=== PATIENT | male | born 1935 | race Caucasian/White ===

== ENCOUNTER 2017-04-11 10:29 | Inpatient (IN) ==
--- NOTE | 2017-04-10 22:02 | Discharge Summary ---
<Therese Jones - Last Filed: 04/10/17 22:00> Date of Encounter: 04/10/17 - Discharge Diagnosis (1) Aseptic loosening of prosthetic knee Priority: Primary Status: Acute Qualifiers: Encounter type: initial encounter Qualified Code(s): T84.038A - Mechanical loosening of other internal prosthetic joint, initial encounter; Z96.659 - Presence of unspecified artificial knee joint; Z96.659 - Presence of unspecified artificial knee joint (2) Status post revision of total replacement of left knee Priority: Primary Status: Acute (3) HTN (hypertension) Priority: Secondary Status: Chronic Qualifiers: Hypertension type: essential hypertension Qualified Code(s): I10 - Essential (primary) hypertension (4) DMII (diabetes mellitus, type 2) Priority: Secondary Status: Chronic Qualifiers: Diabetes mellitus complication status: without complication Diabetes mellitus jail insulin use: unspecified director orange insulin use status Qualified Code(s): E11.9 - Type 2 diabetes mellitus without complications (5) Anticoagulated Priority: Secondary Status: Chronic Comments: Will resume Xarelto (6) Chronic pain Status: Acute Comments: Will continue Noroc 10/325 for pain control. Qualifiers: Chronic pain type: other chronic pain Qualified Code(s): G89.29 - Other chronic pain - Discharge Medications Home Medications: Lisinopril/Hydrochlorothiazide [Zestoretic 20-12.5 mg Tablet] 1 tab PO DAILY [History] Lovastatin 40 mg PO DAILY 02/22/17 [History] Meloxicam [Mobic] 15 mg PO DAILY PRN 02/22/17 [History] Metformin HCl [Glucophage] 1,000 mg PO BID 02/22/17 [History] Rivaroxaban [Xarelto] 15 mg PO DAILY 02/22/17 [History] Saxagliptin HCl [Onglyza] 5 mg PO DAILY 02/22/17 [History] Sotalol HCl [Betapace] 120 mg PO BID 02/22/17 [History] HYDROcodone/Acet 10/325 mg [[place] 10-325 mg] 1 tab PO Q6H PRN #28 tablet [Rx] HYDROcodone/Acet 10/325 mg [[place] 10-325 mg] 1 tab PO Q6HR PRN 04/11/17 [History ] Multivitamin [One Daily Essential] 1 each PO 04/11/17 [History] Psyllium Husk [Metamucil] 2 cap PO DAILY 04/11/17 [History] Allergies/Adverse Reactions: 3 Allergy/AdvReac Type Severity Reaction Status Date / Time No Known Allergies Allergy Verified 04/11/17 10:50 Primary care physician: John Maravilla, - Patient Status Disposition: Home, Self-Care Condition: Good - Discharge Instructions Follow Up With: John Maravilla DO [Primary Care Provider] - - Hospital Course Hospital course: Mr. 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 Status: Chronic Qualifiers: Encounter type: subsequent encounter Qualified Code(s): T84.038D - Mechanical loosening of other internal prosthetic joint, subsequent encounter; Z96.659 - Presence of unspecified artificial knee joint; Z96.659 - Presence of unspecified artificial knee joint (3) Status post revision of total replacement of left knee Priority: Primary Status: Acute (4) HTN (hypertension) Priority: Secondary Status: Chronic Qualifiers: Hypertension type: essential hypertension Qualified Code(s): I10 - Essential (primary) hypertension (5) DMII (diabetes mellitus, type 2) Priority: Secondary Status: Chronic Qualifiers: Diabetes mellitus complication status: without complication Diabetes mellitus director orange insulin use: unspecified director orange insulin use status Qualified Code(s): E11.9 - Type 2 diabetes mellitus without complications (6) Chronic pain Priority: Secondary Status: Chronic Qualifiers: Chronic pain type: other chronic pain Qualified Code(s): G89.29 - Other chronic pain (7) Acute blood loss anemia Priority: Primary Status: Acute Primary care physician: John Maravilla, - Patient Status Overall status at discharge: patient is progressing back to baseline - Hospital Course Hospital course: Mr. Quinn is a 81 year old male Status post revision left total knee. Hemoglobin 8.6 patient asymptomatic The patient had an uneventful postoperative course. They received antibiotics and physical therapy and were discharged in stable condition. There will follow -up in the office in 2 weeks. - Time Spent with Patient Total time spent providing and/or coordinating discharge services:
--- NOTE | 2017-04-11 10:47 | Anesthesia Evaluation PreOp ---
Date of Encounter: 04/11/17 Time of Encounter: 10:45 - Past History Planned Operation: Left Total Knee Arthroplasty Cardiac History: HTN, Hyperlipidemia Pulmonary History: Former smoker (quit 2003) CASHIER WRAPPER History: Denies Any Significant HX Other Medical History: Diabetes Type II, Other (Lymphedema) Anesthesia History: No Prior Anesthetic Complications, Past Anesthesia ( Cardiversion, Left wrist, back sx, GB,colectomy, left total knee) Alcohol Use: none Drug use: none Medications and Allergies Lisinopril/Hydrochlorothiazide [Zestoretic 20-12.5 mg Tablet] 1 tab PO DAILY [History] Lovastatin [Lovastatin] 40 mg PO DAILY 02/22/17 [History] Meloxicam [Mobic] 15 mg PO DAILY PRN 02/22/17 [History] Metformin HCl [Glucophage] 1,000 mg PO BID 02/22/17 [History] Rivaroxaban [Xarelto] 15 mg PO DAILY 02/22/17 [History] Saxagliptin HCl [Onglyza] 5 mg PO DAILY 02/22/17 [History] Sotalol HCl [Betapace] 120 mg PO BID 02/22/17 [History] HYDROcodone/Acet 10/325 mg [[place] 10-325 mg] 1 tab PO Q6H PRN #28 tablet [Rx] HYDROcodone/Acet 10/325 mg [[place] 10-325 mg] 1 tab PO Q6HR PRN 04/11/17 [History ] Multivitamin [One Daily Essential] 1 each PO 04/11/17 [History] Psyllium Husk [Metamucil] 2 cap PO DAILY 04/11/17 [History] 3 Allergy/AdvReac Type Severity Reaction Status Date / Time No Known Allergies Allergy Verified 04/11/17 10:50 - Meds/Allergy Pre-op Review Medications Reviewed: Yes Allergies Reviewed: Yes Beta Blockers on Current Med List: Yes If Beta Blockers taken, Date/Time (Last Dose taken): 07:00 04/11/17 Anesthesia Results - Labs Laboratory Tests 03/23/15 03/16/17 03/16/17 11:13 09:56 09:56 WBC Hgb Hct Plt Count INR 2.0 Sodium 139 Potassium 4.4 Chloride 103 Carbon Dioxide 24 BUN 28 H Creatinine 1.25 POC Glucose 158 H 03/16/17 09:56 WBC 8.4 Hgb 10.7 L Hct 33.9 L Plt Count 452 H INR Sodium Potassium Chloride Carbon Dioxide BUN Creatinine POC Glucose - Imaging EKG: image reviewed (SR) Anesthesia Exam O2 Sat Height 1.88 m Height 1.88 m Weight 118.841 kg Weight 118.841 kg O2 Sat by Pulse Oximetry 97 Vital Signs Temp Pulse Resp BP Pulse Ox 98.2 F 61 18 137/70 97 04/11/17 11:07 04/11/17 11:07 04/11/17 11:07 04/11/17 11:07 04/11/17 11:07 Blood glucose: 143 Height: 6'2'' Weight: 262# NPO (# of Hours): > 8 Hrs Pain Scale: 0 Pain Scale Used: Numeric (1 - 10) - HEENT Pupil (Motor): Pupils equal, EOMI Mallampati: III Teeth: Missing Denture Type: Upper: Complete Oral Opening: Greater than 3 - CASHIER WRAPPER LOC: Oriented CASHIER WRAPPER Motor: Normal RUE, Normal LUE, Normal RLE, Normal LLE, Normal Face CASHIER WRAPPER Sensory: Normal: RUE, LUE, RLE, LLE, Face - Cardiac Rhythm: Regular Murmur: None JVD: No Carotid Bruit: No - Pulmonary Breath Sounds: bilateral Clear Respiratory Effort: Symmetrical Anesthesia Assess/Plan ASA Score: 3 Modified Fisher Scale for Level of Consciousness: Cooperative, oriented, and tranquil Anesthetic Plan: General, Regional (Left Fem. Nerve Block) Autologous Blood: Yes Monitoring Plan: Standard Monitors Recovery Plan: PACU
--- NOTE | 2017-04-11 10:52 | History & Physical Report ---
Date of Encounter: 04/11/17 Time of Encounter: 10:52 24 Hour HP Update - Instructions Instructions: If the History and Physical is less than 30 days old and was completed prior to A.M. admission and or procedure and has NOT been updated on calendar day of procedure please complete this update prior to performing procedure. - Update Patient reports changes in Medical Condition: No Changes in examination, assessment, or condition: No Changes in Medication: No Preop tests/diagnostics Reviewed: Yes Surgery Remains Indicated: Yes Consent for Planned Operative Procedure(s) Verified: Yes - Pre-Operative Checklist Preoperative Checklist Indicated: No Prophylactic Antibiotic Ordered: Yes Is VTE Prophylaxis Indicated?: Yes
[2017-04-11] MEDS ORDERED: CeFAZolin Pre 2,000 MG/100 ML 2,000 MG/100 ML BAG IVPB ONE (10:59)
[2017-04-11] MEDS ORDERED: Lidocaine -MPF 1% 2 ML VIAL ID ONE (10:59)
[2017-04-11] MEDS ORDERED: Ringers Solution, Lactated 1,000 ML IVC SCH ×2 (11:00→15:23)
[2017-04-11] MEDS ORDERED: *HR* FentaNYL (PF) 100 MCG/2 ML VIAL ONE (12:07)
[2017-04-11] MEDS ORDERED: *HR* Propofol 200 MG/20 ML VIAL IVP ONE (12:07)
[2017-04-11] MEDS ORDERED: *HR* Midazolam HCl 2 MG/2 ML VIAL ONE (12:07)
[2017-04-11] MEDS ORDERED: Dexamethasone 4 MG/ML VIAL ONE (12:07)
[2017-04-11] MEDS ORDERED: Lidocaine -MPF 2% 2 ML VIAL ONE (12:07)
[2017-04-11] MEDS ORDERED: Ondansetron 4 MG/2 ML VIAL ONE (12:07)
[2017-04-11] MEDS ORDERED: Acetaminophen IV 1,000 MG/100 ML INFUS..BTL ONE (12:13)
[2017-04-11] MEDS ORDERED: Bupivacaine/Clonidine Syringe 1 EACH SYRINGE ONE (12:13)
[2017-04-11] MEDS ORDERED: ROPIVACAINE HCL/PF 0.5% 30 ML VIAL ONE (12:13)
[2017-04-11] MEDS ORDERED: Ethanol\\Acetic Acid\\Na Ace\\Ben 1,000 ML IRRIG.SOLN IR ONE (12:32)
--- NOTE | 2017-04-11 12:53 | Anesthesia Procedures ---
Date of Encounter: 04/11/17 Time of Encounter: 12:30 Procedures: Anesthesia - Nerve Block Procedure Date: 04/11/17 Time: 12:30 Allergies/Adv Reactions: nka Pre-op Diagnosis: left knee OA Surgical Procedure: left TKA Checklist: Correct Patient Identifier, Correct procedure, History checked Correct side: Left Blood Thinner: No Monitor Applied: EKG, BP, Pulse Oximetry Supplemental Oxygen via Nasal Cannula (L/min): 2 Sedation: Fentanyl (mcg): 100 Indication: Post Op Analgesia Pre-op Neuro Deficits: No Block Type: Femoral, Other (ipack - 20ml) Catheter placed: No Sterile Technique: Yes Ultrasound used: Yes Anatomy identified: Yes Visual spread of Local: Yes Neuro Stimulation: Yes (femoral only) Nerve Stimulator Range: 0.2 - 0.4 mA Blood on Needle Aspiration: No Smooth Injection of Local: Yes Pain with Injection of Local: No Prep: Chlorhexadine Needle: 22 x 50 mm Stimuplex, 21 x 100 mm Stimuplex Local: 0.25% Bupivicaine w/Clonidine 20 mcg/cc, Ropivacaine, Other (10mg decadron) Volume (cc): 50 Number of Attempts: 1 Complications: None/effective block Vitals: Vital Signs/O2 Sat/Glucose, Most Recent Temp Pulse Resp BP Pulse Ox 98.2 F 65 14 162/84 100 04/11/17 11:07 04/11/17 12:14 04/11/17 12:14 04/11/17 12:14 04/11/17 12:14 Blood Glucose* 143
[2017-04-11] MEDS ORDERED: EPHEDrine 50 MG/ML VIAL ONE (12:58)
[2017-04-11] MEDS ORDERED: *HR* Promethazine 25 MG/ML VIAL IVP PRN (13:25)
--- NOTE | 2017-04-11 13:48 | Orthopedic Operative Note ---
Date of procedure: 04/11/17 Pre-op diagnosis: Aseptic loosening left total knee Post-op diagnosis: same Procedure: Procedure: Left revision total knee Estimated blood loss: 400 Hardware: Metal and polyethylene replacement. Biomet SSK femur: 70, 18 x 120 Tibia: 79, 16 x 120 Constrained Harriet: 16 Exam Under anesthesia: Well healed incision swelling or erythema. Full flexion and extension no instability. Procedural Notes: Loosening of femoral component. Operative procedure: The patient was brought to the operating room and placed on the operating room table. After general anesthesia was administered the operative knee was examined. Findings were noted in the exam under anesthesia. The operative extremity was prepped and draped in sterile surgical fashion. The patient received IV antibiotics prior to skin incision. A standard midline incision was made centered over the patella through the old incision. The incision was made through the skin and subcutaneous tissue. A medial parapatellar tendon approach was performed. Care was taken to preserve tissue along the medial aspect of the patella. And to protect the patella tendon. The deep MCL was released off the medial tibia. The infra patella fat pad was excised. Fluid was encountered this was normal joint fluid, Cultures were obtained and gram . The knee was brought into flexion the patient had a monoblock tibia. The central post of the tibial component was cut.. The interface between the patient's femoral component and distal femur were disrupted with a osteotome and oscillating saw. Femoral component was removed removed without significant bone loss. Femoral component was looser than expected. Attention was then turned to the tibial component. The same technique was used to remove the tibial component by disrupting the interface between the patient's tibial component and the patients proximal tibia. The tibial component , was removed without significant bone loss there to medial and lateral trabecular metal lugs were removed with an osteotome.. The tibia was sized to a 79, was reamed up to a 16 x 120 Trial had good fit and fixation. The femur was sized to a 70, it was reamed up to a 18 x 120. The finishing guide was seated and the box cut was made. The trial had good fit and fixation. Both trial components were seated and the 16 constrained Harriet was seated and secured. The knee had full flexion and full extension with no instability. Patella had excellent patella tracking no abnormal wear. The trial components were removed. The knee sat for 2 minutes with a Betadine saline solution. It was irrigated out with 2 L of pulse irrigation. The components were assembled on the back table, the tibia cemented first followed by the femur. The 16 constrained liner was seated and secure. The knee was brought to full extension while the cement hardened. After the cement hardened the knee was irrigated out again. The knee was closed by the PA. The extensor mechanism was closed with a running #2 Fiberwire suture and a running #2 PDS suture. The deep tissue was irrigated and closed deep with #1 PDS suture superficially with 0 PDS suture. The skin was closed with skin nata. The patient was placed in a sterile dressing and postoperative brace. They were extubated and transferred to recovery room in stable condition. Anesthesia: JEANETH Surgeon: Amadeo Martin Dental Technician Instructor: Disha Robertson Disposition: PACU
[2017-04-11] MEDS: *HR* HYDROmorphone (PF) 1 MG/ML SYRINGE IVP PRN ×5 (14:32→16:02)
[2017-04-11 14:48] LABS: Hematocrit 28.8 % (37.5-50.1); Hemoglobin 9.3 g/dL (12.9-16.9)
--- NOTE | 2017-04-11 15:14 | Anesthesia Evaluation Post Op ---
Date of Encounter: 04/11/17 Time of Encounter: 15:12 - Vital Signs Vital Signs: Vital Signs/O2 Sat, Most Current Temp Pulse Resp BP Pulse Ox 97.2 F L 60 14 139/68 100 04/11/17 15:09 04/11/17 15:09 04/11/17 15:09 04/11/17 15:09 04/11/17 15:09 - Lungs Lungs: Clear Ascult./Percussion - Airway Airway: Non-obstructed - Cardiovascular Regular Rate - Mental Status Mental Status: Alert & Oriented, Answers Appropriately - Pain Pain Scale: 0 Pain Scale used: Numeric (1 - 10) - Nausea Vomiting Nausea Vomiting: Not Present - Hydration Hydration: Tolerates oral liquids, Has not voided - Discharge PostOp Status: Transfer Patient to floor
[2017-04-11] MEDS ORDERED: MOM Conc 10 ML UD.LIQ PO PRN (15:23)
[2017-04-11] MEDS ORDERED: Ondansetron 4 MG/2 ML VIAL IVP PRN (15:23)
[2017-04-11] MEDS ORDERED: D5% in Water 1,000 ML IVC PRN (15:23)
[2017-04-11] MEDS ORDERED: *HR* Dextrose 50 % in Water (Syg) 50 ML SYRINGE IVP PRN (15:23)
[2017-04-11] MEDS ORDERED: *HR* OxyCODONE Immed Rel 5 MG TABLET PO PRN ×2 (15:23)
[2017-04-11] MEDS ORDERED: Naloxone 0.4 MG/ML INJ IVP PRN (15:23)
[2017-04-11] MEDS ORDERED: Dextrose Gel 15 GM PO PRN ×2 (15:23)
[2017-04-11] MEDS: Insulin LISPRO 300 UNITS/3 ML VIAL SQ SCH ×2 (17:29→21:30)
[2017-04-11] MEDS ORDERED: Sennosides 8.6 MG TABLET PO PRN (21:00)
[2017-04-11] MEDS ORDERED: Temazepam 15 MG CAPSULE PO PRN (21:00)
[2017-04-11] MEDS: ceFAZolin 2,000 MG in D5% in Water 100 ML IVPB SCH (21:27)
[2017-04-11] MEDS: *HR* Metformin 500 MG TABLET PO SCH (21:27)
[2017-04-12] MEDS: ceFAZolin 2,000 MG in D5% in Water 100 ML IVPB SCH (04:49)
[2017-04-12 05:12] LABS: Hematocrit 26.5 % (37.5-50.1); Hemoglobin 8.6 g/dL (12.9-16.9)
[2017-04-12 05:28] LABS: BUN/Creatinine Ratio 22 (6-26); Blood Urea Nitrogen 25 mg/dL (8-26); Calcium 8.3 mg/dL (8.6-10.8); Carbon Dioxide 26 mEq/L (19-29); Chloride 102 mEq/L (98-109); Glucose 229 mg/dL (70-99); Osmolality,Calculated 290 (280-300); Potassium 4.4 mEq/L (3.5-4.5); Sodium 134 mEq/L (136-145); eGFR For African Americans > 60 (> 60); eGFR For Non-African Americans > 60 (> 60)
--- NOTE | 2017-04-12 06:42 | Orthopedics Progress Note ---
Date of Encounter: 04/12/17 Time of Encounter: 06:42 - Assessment and Plan (1) Obesity (BMI 30.0-34.9) Current Visit: Yes Status: Chronic (2) Aseptic loosening of prosthetic knee Current Visit: No Status: Chronic Qualifiers: Encounter type: subsequent encounter Qualified Code(s): T84.038D - Mechanical loosening of other internal prosthetic joint, subsequent encounter; Z96.659 - Presence of unspecified artificial knee joint; Z96.659 - Presence of unspecified artificial knee joint (3) Status post revision of total replacement of left knee Current Visit: No Status: Acute (4) HTN (hypertension) Current Visit: No Status: Chronic Qualifiers: Hypertension type: essential hypertension Qualified Code(s): I10 - Essential (primary) hypertension (5) DMII (diabetes mellitus, type 2) Current Visit: No Status: Chronic Qualifiers: Diabetes mellitus complication status: without complication Diabetes mellitus vermin exterminator insulin use: unspecified skilled nursing insulin use status Qualified Code(s): E11.9 - Type 2 diabetes mellitus without complications (6) Chronic pain Current Visit: No Status: Chronic Qualifiers: Chronic pain type: other chronic pain Qualified Code(s): G89.29 - Other chronic pain (7) Acute blood loss anemia Current Visit: Yes Status: Acute Subjective Interval history: Patient was seen this morning doing well without complaints. Afebrile vital signs stable. Operative extremity: Neurovascularly intact Dressing clean dry and intact Calves nontender Assessment and plan: Continue with postoperative care Hemoglobin 8.6 asymptomatic discharge today Objective Vital signs: Vital Signs Temp Pulse Resp BP Pulse Ox 04/12/17 04:02 97.6 F 64 17 114/60 98 04/11/17 23:53 97.6 F 66 17 113/59 96 04/11/17 20:55 97.6 F 65 17 120/68 95 04/11/17 19:35 97.6 F 67 14 127/68 94 04/11/17 17:51 97.6 F 67 12 116/65 95 04/11/17 16:30 97.6 F 76 18 126/67 100 04/11/17 15:09 97.2 F L 60 14 139/68 100 04/11/17 14:59 97.2 F L 63 14 139/70 100 04/11/17 14:49 61 14 132/63 100 04/11/17 14:39 62 12 145/73 100 04/11/17 14:29 97.2 F L 68 12 140/72 100 04/11/17 12:14 65 14 162/84 100 04/11/17 12:00 61 16 139/75 98 04/11/17 11:07 98.2 F 61 18 137/70 97 Intake and Output 04/11/17 04/11/17 04/12/17 15:59 23:59 07:59 Intake Total 100 / 100 250 / 250 200 / 200 Output Total 400 / 400 Balance -300 / -300 250 / 250 200 / 200 Intake: IV Fluids 100 / 100 100 / 100 100 / 100 Ancef Premix 2,000 MG/100 ML 2, 100 / 100 000 mg In 100 ml @ 200 mls/hr IVPB PREOP ONE Rx#:[id number] Ancef 2,000 MG In Dextrose 5% 100 / 100 100 / 100 100 ML @ 200 mls/hr IVPB Q8H NICOLE Rx#:[id number] Oral 150 / 150 100 / 100 Output: Estimated Blood Loss 400 / 400 Other: # Voids 1 1 Weight 118.841 kg 125 kg Blood Glucose* 163 245 Patient Weight 04/12/17 23:59 Weight 125 kg - Labs CBC & BMP: 04/12/17 04:37 04/12/17 04:37 Labs: Abnormal lab results Hgb 8.6 g/dL (12.9-16.9) L 04/12/17 04:37 Hct 26.5 % (37.5-50.1) L 04/12/17 04:37 Sodium 134 mEq/L (136-145) L 04/12/17 04:37 Glucose 229 mg/dL (70-99) H 04/12/17 04:37 POC Glucose 245 (58-89) H 04/11/17 21:28 Calcium 8.3 mg/dL (8.6-10.8) L 04/12/17 04:37 - VTE Documentation of Mechanical Device: Venous foot pump, device Consult Discharge Plan - Plan Referrals: John Maravilla DO [Primary Care Provider] -
[2017-04-12] MEDS: Insulin LISPRO 300 UNITS/3 ML VIAL SQ SCH ×4 (07:59→21:50)
[2017-04-12] MEDS: *HR* Metformin 500 MG TABLET PO SCH ×2 (08:01→21:40)
[2017-04-12] MEDS: *HR* Rivaroxaban 15 MG TABLET PO SCH (08:01)
[2017-04-12] MEDS: Lisinopril-HCTZ 20-12.5mg TABLET PO SCH (08:01)
[2017-04-12] MEDS: Psyllium 1 PACKET POWD.PACK PO SCH (08:01)
[2017-04-12] MEDS ORDERED: *HR* HYDROcodone/Acet 5/325 mg TABLET PO PRN (08:36)
[2017-04-12] MEDS: *HR* HYDROcodone/Acet 5/325 mg TABLET PO PRN ×3 (08:50→18:30)
--- NOTE | 2017-04-12 12:29 | Event Note ---
Date of Encounter: 04/12/17 Time of Encounter: 12:20 PCR - Left TKR-Revision 04/11 GRAM Stain negative POD#.1 Comorbidities: HTN, DMII, Anti-coagulation - Xarelto - to be resumed today Labs: H/H - 8.12/20 - Asymptomatic Patient seen at bedside. Pain control: adequate - chronic pain medication - [place] 10/325 TID, will plan to resume this at home, no RX needed Participating in PT. All questions and concerns addressed. Educated on use of incentive spirometer, ambulation, and hydration. Patient educated on post-operative restrictions and care. Addressed: See above D/C plan:outpatient D/C likely 04/13 - Home Will give MARY KATE hose for home use due to lymphedema
[2017-04-12] MEDS: *HR* HYDROmorphone (PF) 1 MG/ML SYRINGE IVP PRN (21:43)
[2017-04-13] MEDS: *HR* HYDROcodone/Acet 5/325 mg TABLET PO PRN ×3 (01:45→09:50)
[2017-04-13 06:22] LABS: Hematocrit 28.8 % (37.5-50.1); Hemoglobin 9.4 g/dL (12.9-16.9)
[2017-04-13 06:35] LABS: BUN/Creatinine Ratio 24 (6-26); Blood Urea Nitrogen 28 mg/dL (8-26); Carbon Dioxide 27 mEq/L (19-29); Chloride 101 mEq/L (98-109); Glucose 169 mg/dL (70-99); Osmolality,Calculated 293 (280-300); Potassium 3.9 mEq/L (3.5-4.5); Sodium 137 mEq/L (136-145); eGFR For African Americans > 60 (> 60); eGFR For Non-African Americans 59 (> 60)
--- NOTE | 2017-04-13 08:05 | Orthopedics Progress Note ---
Date of Encounter: 04/13/17 Time of Encounter: 08:05 - Assessment and Plan (1) Obesity (BMI 30.0-34.9) Current Visit: Yes Status: Chronic (2) Aseptic loosening of prosthetic knee Current Visit: No Status: Chronic Qualifiers: Encounter type: subsequent encounter Qualified Code(s): T84.038D - Mechanical loosening of other internal prosthetic joint, subsequent encounter; Z96.659 - Presence of unspecified artificial knee joint; Z96.659 - Presence of unspecified artificial knee joint (3) Status post revision of total replacement of left knee Current Visit: No Status: Acute (4) HTN (hypertension) Current Visit: No Status: Chronic Qualifiers: Hypertension type: essential hypertension Qualified Code(s): I10 - Essential (primary) hypertension (5) DMII (diabetes mellitus, type 2) Current Visit: No Status: Chronic Qualifiers: Diabetes mellitus complication status: without complication Diabetes mellitus termination clerk insulin use: unspecified assisted insulin use status Qualified Code(s): E11.9 - Type 2 diabetes mellitus without complications (6) Chronic pain Current Visit: No Status: Chronic Qualifiers: Chronic pain type: other chronic pain Qualified Code(s): G89.29 - Other chronic pain (7) Acute blood loss anemia Current Visit: Yes Status: Acute Subjective Interval history: Patient was seen this morning doing well without complaints. Afebrile vital signs stable. Operative extremity: Neurovascularly intact Dressing clean dry and intact Calves nontender Assessment and plan: Continue with postoperative care Hemoglobin9.4 discharged today Objective Vital signs: Vital Signs Temp Pulse Resp BP Pulse Ox 04/13/17 05:27 98.3 F 74 16 137/64 95 04/13/17 00:15 98.6 F 78 18 145/72 97 04/12/17 20:34 98.6 F 81 18 131/65 96 04/12/17 16:28 98.6 F 72 17 120/67 100 04/12/17 11:52 98.4 F 64 16 107/59 98 Intake and Output 04/12/17 04/13/17 04/13/17 23:59 07:59 15:59 Intake Total 240 / 240 Output Total 350 / 350 325 / 325 Balance -110 / -110 -325 / -325 Intake: Oral 240 / 240 Output: Urine 350 / 350 325 / 325 Other: Meal Dinner Percent of Meal Consumed 90% # Voids 1 Weight 125.5 kg Blood Glucose* 241 Patient Weight 04/13/17 23:59 Weight 125.5 kg - Labs CBC & BMP: 04/13/17 05:49 04/13/17 05:49 Labs: Abnormal lab results Hgb 9.4 g/dL (12.9-16.9) L 04/13/17 05:49 Hct 28.8 % (37.5-50.1) L 04/13/17 05:49 BUN 28 mg/dL (8-26) H 04/13/17 05:49 Est GFR (Non-Af Amer) 59 (> 60) L 04/13/17 05:49 Glucose 169 mg/dL (70-99) H 04/13/17 05:49 POC Glucose 241 (58-89) H 04/12/17 20:26 - VTE Documentation of Mechanical Device: Venous foot pump, device Consult Discharge Plan - Plan Referrals: John Maravilla DO [Primary Care Provider] - 05/05/17 9:00 am
[2017-04-13] MEDS: *HR* Metformin 500 MG TABLET PO SCH (08:31)
[2017-04-13] MEDS: Psyllium 1 PACKET POWD.PACK PO SCH (08:31)
[2017-04-13] MEDS: Lisinopril-HCTZ 20-12.5mg TABLET PO SCH (08:32)
[2017-04-13] MEDS: *HR* Rivaroxaban 15 MG TABLET PO SCH (08:32)
[2017-04-13] MEDS: Insulin LISPRO 300 UNITS/3 ML VIAL SQ SCH (08:32)
[2017-04-13 08:56] VITALS: BP 136/69
== END 2017-04-13 11:20 | disposition home or self-care (01) | DRG 467 ==
LOC: SAMDAY 10:29 → 3NENU 15:17
PROVIDERS: ADMIT Orthopaedic Surgery; ATTEND Orthopaedic Surgery

== ENCOUNTER 2018-02-03 14:52 | Observation (INO) ==
[2018-02-03] MEDS ORDERED: 0.9 % Sodium Chloride 500 ML IVC ONE (15:13)
[2018-02-03 15:54] LABS: Basophils # 0.1 K/mcL (0.0-0.2); Basophils % 0.6 %; Eosinophils # 0.3 K/mcL (0.0-0.6); Eosinophils % 2.9 %; Hematocrit 33.6 % (37.5-50.1); Hemoglobin 11.5 g/dL (12.9-16.9); Immature Granulocytes % 0.2 % (0-4); Lymphocytes # 1.6 K/mcL (0.6-4.6); Lymphocytes % 18.2 %; Mean Corpuscular HGB Conc 34.2 g/dL (31.6-35.5); Mean Corpuscular Hemoglobin 32.9 pg (28.0-33.3); Mean Platelet Volume 9.6 fL (9.4-12.4); Monocytes # 0.6 K/mcL (0.0-1.3); Monocytes % 6.8 %; Neutrophils # 6.4 K/mcL (1.6-8.9); Platelet Count 239 K/mcL (140-400); Red Cell Distribution Width 13.6 % (11.5-14.5); Segmented Neutrophils % 71.3 %
[2018-02-03 16:15] LABS: BUN/Creatinine Ratio 27 (6-26); Blood Urea Nitrogen 35 mg/dL (8-23); Carbon Dioxide 24 mEq/L (23-29); Chloride 106 mEq/L (98-107); Glucose 175 mg/dL (70-105); Osmolality,Calculated 286 (280-300); Potassium 4.2 mEq/L (3.5-5.1); Sodium 132 mEq/L (136-145); Troponin I < 0.03 ng/mL (< 0.04); eGFR For Non-African Americans 54 (> 60)
[2018-02-03] MEDS ORDERED: Naloxone 0.4 MG/ML INJ IVP PRN (17:09)
[2018-02-03] MEDS ORDERED: Acetaminophen 325 MG TABLET PO PRN (17:09)
[2018-02-03] MEDS ORDERED: *HR* HYDROcodone/Acet 10/325 mg TABLET PO PRN (17:10)
[2018-02-03] MEDS ORDERED: Ringers Solution, Lactated 1,000 ML IVC SCH (17:15)
--- NOTE | 2018-02-03 17:29 | Internal Med History&Physical ---
Date of Encounter: 02/03/18 Time of Encounter: 17:20 Internal Medicine - H&P: HPI Chief complaint: Dizziness Admitted From: Emergency Dept Plans for Post Hospital Care: Home History of present illness: Mr. Quinn is a 82 year old male patient with a history of atrial fibrillation, hypertension, diabetes, hyperlipidemia, who presented to the ER following a dizzy spell. Patient says that history from his bed and turned around and started walking when he suddenly felt very dizzy and almost passed out. He denies any vertigo-like sensation. He denies any palpitations or flushing prior to onset of this symptom. He denies any chest pain or shortness of breath. He reports that he had similar spell when he had an episode of rapid A. fib before. As such she was concerned about it and came to the ER. He now feels much better. He denies any diarrhea. No dysuria. No nausea or vomiting. Past Med Surg Social Fam HX - Past Medical History Attestation: Yes The following information was validated with the patient. Source: patient Medical history: atrial fibrillation, cancer, diabetes, hypertension, other Additional medical history: Colon Cancer. venous insufficiency. lymphedema Psychiatric history: no psych history - Past Surgical History Surgical History: cholecystectomy, herniorrhaphy Additional surgical history: back,l knee replacement,l wrist, colon sx, colonoscopy - Social History Smoking Status: Former smoker Smokeless Tobacco Status: No Alcohol use: none Drug use: none - Family History Mother Living Status: Hx Family Endocrine Disorder: Yes Internal Medicine - H&P: Meds Lisinopril/Hydrochlorothiazide [Zestoretic 20-12.5 mg Tablet] 1 tab PO DAILY [History] Lovastatin 40 mg PO DAILY 02/22/17 [History] Metformin HCl [Glucophage] 1,000 mg PO BID 02/22/17 [History] Rivaroxaban [Xarelto] 15 mg PO DAILY 02/22/17 [History] Saxagliptin HCl [Onglyza] 5 mg PO DAILY 02/22/17 [History] Sotalol HCl [Betapace] 120 mg PO BID 02/22/17 [History] HYDROcodone/Acet 10/325 mg [[place] 10-325 mg] 1 tab PO Q6H PRN #28 tablet [Rx] Multivitamin [One Daily Essential] 1 tab PO DAILY 04/11/17 [History] Psyllium Husk [Metamucil] 2 cap PO DAILY 04/11/17 [History] 3 Allergy/AdvReac Type Severity Reaction Status Date / Time No Known Allergies Allergy Verified 04/11/17 10:50 All Systems PM: A 10-system review of systems was performed and is negative for pertinent findings except as documented above in the HPI. - Constitutional Constitutional: no chills, no fever(s), no night sweats - EENT Eyes: no change in vision, no discharge, no pain, no photophobia Ears: no ear discharge, no ear pain, no tinnitus Nose, mouth and throat: no dysphagia, no nasal discharge, no neck pain, no sore throat - Cardiovascular Cardiovascular ROS IM: lightheadedness, no chest pain, no diaphoresis, no dyspnea, no palpitations, no syncope - Respiratory Respiratory: no cough, no dyspnea, no wheezing, no excessive phlegm production - Gastrointestinal Gastrointestinal: no abdominal pain, no diarrhea, no hematemesis, no hematochezia, no melena, no nausea, no vomiting - Musculoskeletal Musculoskeletal ROS IM: no numbness, no tingling - Integumentary Integumentary IM: no rash, no unusual bruising - Neurological Neurological ROS: no confusion, no convulsions, no focal weakness, no numbness, no tingling, no tremor(s) - Hematologic/Lymphatic Hematologic/Lymphatic: no easy bruising - Constitutional Vitals: Temp Pulse Resp BP Pulse Ox 97.9 F 68 16 141/78 98 02/03/18 14:53 02/03/18 14:53 02/03/18 17:23 02/03/18 17:23 02/03/18 14:53 General appearance: Present: cooperative, A&O X 3, answers questions appropriately - Eye Eye exam: Present: EOMI, PERRL, conjuntiva pink, sclera anicteric - Neck Neck exam general surgery: Present: supple, trachea midline. Absent: lymphadenopathy - Respiratory Respiratory exam: Present: CTAB. Absent: accessory muscle use, rales, rhonchi, wheezes - Cardiovascular Cardiovascular exam: Present: RRR, +S1, +S2. Absent: diastolic murmur, gallop, rubs, systolic murmur - GI/Abdominal GI/Abdominal exam: Present: normal bowel sounds, soft, no peritoneal signs. Absent: distended, tenderness - Extremities Exam Extremities exam: Present: warm, radial pulses palpable and symmetrical. Absent : calf tenderness, cyanotic, pedal edema - Neurological Exam Neurological exam: Present: CN II-XII intact, oriented X3, no focal deficits. Absent: facial droop, speech deficit - Skin Skin exam: Present: dry, intact Internal Med - H&P Results - Labs CBC & Chem 7: 02/03/18 15:41 02/03/18 15:41 - EKG Data -: EKG Interpreted by Myself EKG shows normal: sinus rhythm - EKG Data Interpretation IM: normal EKG - Assessment and plan (1) Pre-syncope Current Visit: Yes Status: Acute Assessment and plan: Most likely orthostatic presyncope. We will check orthostatic vital signs. Patient does also appear to have signs of dehydration with elevated BUN and hyponatremia. Will gently hydrate. Likely due to use of Zestoretic. We will hold hydrochlorothiazide for now. Continue lisinopril. Will check 2-D echocardiogram and carotid Dopplers. Monitor with telemetry. Moderate risk for complications (2) Paroxysmal atrial fibrillation Current Visit: Yes Status: Chronic Assessment and plan: History of atrial fibrillation. However patient is in sinus rhythm at this time. Continue sotalol. Continue anti-coordination with Xarelto (3) HTN (hypertension) Current Visit: Yes Status: Chronic Assessment and plan: Monitor blood pressure. Continue lisinopril Qualifiers: Hypertension type: essential hypertension Qualified Code(s): I10 - Essential (primary) hypertension (4) DMII (diabetes mellitus, type 2) Current Visit: Yes Status: Chronic Assessment and plan: Monitor blood sugars. Diabetic diet. Sliding scale insulin. Hold oral anti- glycemic agents for now. Qualifiers: Diabetes mellitus custodial insulin use: without manager labor relations use Diabetes mellitus complication status: without complication Qualified Code(s): E11.9 - Type 2 diabetes mellitus without complications - Time Spent With Patient Total time spent is greater than 50% in coordination of care (as documented) at patient's floor/unit and/or counseling patient:
[2018-02-03] MEDS ORDERED: Dextrose Gel 15 GM/37.5 ML TUBE PO PRN ×2 (17:33)
[2018-02-03] MEDS ORDERED: *HR* Dextrose 50 % in Water (Syg) 50 ML SYRINGE IVP PRN (17:33)
[2018-02-03] MEDS ORDERED: D5% in Water 1,000 ML IVC PRN (17:33)
[2018-02-03] MEDS ORDERED: Insulin LISPRO 300 UNITS/3 ML VIAL SQ SCH (21:00)
[2018-02-04 01:17] LABS: Basophils % 0.5 %; Eosinophils # 0.2 K/mcL (0.0-0.6); Eosinophils % 2.9 %; Hematocrit 33.6 % (37.5-50.1); Hemoglobin 11.5 g/dL (12.9-16.9); Immature Granulocytes % 0.2 % (0-4); Lymphocytes # 2.4 K/mcL (0.6-4.6); Lymphocytes % 29.7 %; Mean Corpuscular HGB Conc 34.2 g/dL (31.6-35.5); Mean Corpuscular Hemoglobin 32.4 pg (28.0-33.3); Mean Corpuscular Volume 94.6 fL (83.0-100.0); Mean Platelet Volume 9.6 fL (9.4-12.4); Monocytes # 0.8 K/mcL (0.0-1.3); Monocytes % 9.4 %; Neutrophils # 4.6 K/mcL (1.6-8.9); Platelet Count 237 K/mcL (140-400); Red Blood Count 3.55 M/mcL (4.19-5.50); Red Cell Distribution Width 13.4 % (11.5-14.5); Segmented Neutrophils % 57.3 %
[2018-02-04 01:34] LABS: BUN/Creatinine Ratio 26 (6-26); Blood Urea Nitrogen 29 mg/dL (8-23); Calcium 9.1 mg/dL (8.6-10.3); Carbon Dioxide 26 mEq/L (23-29); Chloride 105 mEq/L (98-107); Glucose 129 mg/dL (70-105); Osmolality,Calculated 292 (280-300); Potassium 4.1 mEq/L (3.5-5.1); Sodium 137 mEq/L (136-145); eGFR For Non-African Americans > 60 (> 60)
[2018-02-04] MEDS: Insulin LISPRO 300 UNITS/3 ML VIAL SQ SCH ×2 (07:59→12:44)
[2018-02-04] MEDS ORDERED: Lisinopril 20 MG TABLET PO SCH (09:00)
[2018-02-04] MEDS ORDERED: *HR* Rivaroxaban 15 MG TABLET PO SCH (09:00)
[2018-02-04 11:12] VITALS: BP 111/68
--- NOTE | 2018-02-04 12:15 | Discharge Summary ---
- NOTES TO OUTPATIENT PROVIDER Notes to Outpatient Provider: Patient was hospitalized here after an episode of presyncope when the patient stood up and turned around. He has history of A. fib. However he was in sinus rhythm in the ER. He did appear to be dehydrated and had hyponatremia likely due to use of hydrochlorothiazide. He received IV fluids and is feeling much better now. Carotid Dopplers did not show any significant stenosis. Echocardiogram shows EF of 60-65% with moderate left ventricular diastolic dysfunction. He does have moderate mitral stenosis. Recommend outpatient follow-up with cardiology. Also recommend holding hydrochlorothiazide for now. Sending in a prescription for just lisinopril. Date of Encounter: 02/04/18 Time of Encounter: 11:30 - Discharge Diagnosis (1) Pre-syncope Priority: Primary Status: Resolved (2) Paroxysmal atrial fibrillation Priority: Secondary Status: Chronic (3) HTN (hypertension) Priority: Secondary Status: Chronic Qualifiers: Hypertension type: essential hypertension Qualified Code(s): I10 - Essential (primary) hypertension (4) DMII (diabetes mellitus, type 2) Priority: Secondary Status: Chronic Qualifiers: Diabetes mellitus fci insulin use: without fci use Diabetes mellitus complication status: without complication Qualified Code(s): E11.9 - Type 2 diabetes mellitus without complications (5) Hypo-osmolar hyponatremia Priority: Secondary Status: Resolved Hospital course: Mr. Quinn is a 82 year old male Patient with history of hypertension, diabetes , atrial fibrillation was hospitalized here after an episode of presyncope when the patient stood up and turned around. He has history of A. fib. However he was in sinus rhythm in the ER. He did appear to be dehydrated and had hyponatremia likely due to use of hydrochlorothiazide which she used in combination with lisinopril. He received IV fluids and is feeling much better now. Carotid Dopplers did not show any significant stenosis. Echocardiogram shows EF of 60-65% with moderate left ventricular diastolic dysfunction. He does have moderate mitral stenosis. Recommend outpatient follow-up with cardiology. Also recommend holding hydrochlorothiazide for now. He was sent home with a prescription for lisinopril. Discharge discussed with: patient, nurse - Time Spent with Patient Total time spent providing and/or coordinating discharge services: Less than 30 minutes (25 min) - Discharge Medications Prescriptions: Lisinopril [Zestril] 20 mg PO DAILY #30 tablet Home Medications: Lovastatin 40 mg PO DAILY 02/22/17 [History] Metformin HCl [Glucophage] 1,000 mg PO BID 02/22/17 [History] Rivaroxaban [Xarelto] 15 mg PO DAILY 02/22/17 [History] Saxagliptin HCl [Onglyza] 5 mg PO DAILY 02/22/17 [History] Sotalol HCl [Betapace] 120 mg PO BID 02/22/17 [History] HYDROcodone/Acet 10/325 mg [[place] 10-325 mg] 1 tab PO Q6H PRN #28 tablet [Rx] Multivitamin [One Daily Essential] 1 tab PO DAILY 04/11/17 [History] Psyllium Husk [Metamucil] 2 cap PO DAILY 04/11/17 [History] Lisinopril [Zestril] 20 mg PO DAILY #30 tablet 02/04/18 [Rx] Allergies/Adverse Reactions: 3 Allergy/AdvReac Type Severity Reaction Status Date / Time No Known Allergies Allergy Verified 04/11/17 10:50 Date of admission: 02/03/18 16:59 Primary care physician: Wilmer Maravilla DO Discharging clinician: Isaias West Anticipated date of discharge: 02/04/18 - Constitutional Vitals: Temp Pulse Resp BP Pulse Ox 98.1 F 55 16 111/68 97 02/04/18 11:11 02/04/18 11:11 02/04/18 11:11 02/04/18 11:11 02/04/18 11:11 General appearance: Present: cooperative, A&O X 3, answers questions appropriately - Neck Neck exam general surgery: Present: supple, trachea midline. Absent: lymphadenopathy - Respiratory Respiratory exam: Present: CTAB. Absent: accessory muscle use, rales, rhonchi, wheezes - Cardiovascular Cardiovascular exam: Present: RRR, +S1, +S2. Absent: diastolic murmur, gallop, rubs, systolic murmur - GI/Abdominal GI/Abdominal exam: Present: normal bowel sounds, soft, no peritoneal signs. Absent: distended, tenderness - Patient Status Disposition: Home, Self-Care Condition: Good Functional capacity at discharge: independent ambulation Overall status at discharge: patient is progressing back to baseline - Discharge Instructions Instructions: Atrial Fibrillation (DC), Diabetes Mellitus Type 2 in Adults (DC) , Chronic Hypertension (DC) Follow Up With: John Maravilla DO [Primary Care Provider] - (Appointment has been web requested. Office will call with appointment date and time.) Forms: ED Satisfaction Letter - Diet and Activity Activity: increase activity as tolerated Diet: advance to your usual diet
--- NOTE | 2018-02-06 16:34 | Electrocardiograph Report ---
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
--- NOTE | 2018-02-19 11:24 | Emergency Department Note ---
Disposition Clinical Impression: Syncope, near Disposition: Admitted As Inpatient Condition: Good General Adult HPI - General Chief complaint: ED Dizziness Stated complaint: dizziness Time Seen by Provider: 02/03/18 14:58 Source: patient Limitations: no limitations - History of Present Illness HPI Narrative: Unfortunately due to technology issue, the original note and record from this encounter is not located within the system. This note is for the encounter of 04/13. It represents the encounter to the best of my memory. The Internal Medicine H and P was used to help remember certain details. Patient presented to the emergency department for evaluation of dizzy spell. Patient was getting out of bed when he felt dizzy and almost passed out. Pain Scale: 0 - Related Data Home Medications Medication Instructions Recorded Confirmed Lovastatin 40 mg PO DAILY 02/22/17 02/03/18 Metformin HCl [Glucophage] 1,000 mg PO BID 02/22/17 02/03/18 Rivaroxaban [Xarelto] 15 mg PO DAILY 02/22/17 02/03/18 Saxagliptin HCl [Onglyza] 5 mg PO DAILY 02/22/17 02/03/18 Sotalol HCl [Betapace] 120 mg PO BID 02/22/17 02/03/18 Multivitamin [One Daily Essential] 1 tab PO DAILY 04/11/17 02/03/18 Psyllium Husk [Metamucil] 2 cap PO DAILY 04/11/17 02/03/18 Previous Rx's Medication Instructions Recorded HYDROcodone/Acet 10/325 mg [[place] 1 tab PO Q6H PRN #28 tablet 04/10/17 10-325 mg] Lisinopril [Zestril] 20 mg PO DAILY #30 tablet 02/04/18 Allergies Allergy/AdvReac Type Severity Reaction Status Date / Time No Known Allergies Allergy Verified 04/11/17 10:50 Review of Systems: As Per HPI Cardiovascular: Reports: other (dizzy, near syncope) Past Medical History - Past Medical History Medical history: Reports: atrial fibrillation, cancer, diabetes, hypertension, other Surgical history: Reports: cholecystectomy, herniorrhaphy Psychiatric history: Reports: no psych history - Social History Smoking Status: Former smoker Smokeless Tobacco Status: No Alcohol use: Reports: none Drug use: Reports: none Physical Exam General appearance: NAD, conversant Eyes: anicteric sclerae, moist conjunctivae; no lid-lag; PERRL HENT: Atraumatic; oropharynx clear with moist mucous membranes Neck: Normal appearance; Trachea midline Chest: Symmetrical chest rise; No respiratory distress Extremities: No peripheral edema or extremity tenderness Skin: Normal temperature, turgor and texture; no rash, ulcers or subcutaneous nodules Psych: Appropriate mood and affect Neuro: Awake and alert - General Limitations: no limitations General appearance: alert, in no apparent distress Course - Consultations Consultation #1: Discussed with hospitalist. Patient accepted for admission. Vital Signs Temperature 97.9 F 02/03/18 14:53 Pulse Rate 68 02/03/18 14:53 Respiratory Rate 16 02/03/18 14:53 Blood Pressure 145/100 02/03/18 14:53 O2 Sat by Pulse Oximetry 98 02/03/18 14:53 Temperature 98.1 F 02/04/18 11:11 Pulse Rate 55 02/04/18 11:11 Respiratory Rate 16 02/04/18 11:11 Blood Pressure 111/68 02/04/18 11:11 O2 Sat by Pulse Oximetry 97 02/04/18 11:11 Oxygen Delivery Oxygen Delivery Room Air Medical Decision Making - Lab Data Result diagrams: 02/04/18 00:45 02/04/18 00:45 Lab Results 02/03/18 02/03/18 02/03/18 Range/Units 15:41 15:41 15:41 WBC 9.0 (4.3-11.1) K/mcL RBC 3.50 L (4.19-5.50) M/mcL Hgb 11.5 L (12.9-16.9) g/dL Hct 33.6 L (37.5-50.1) % MCV 96.0 (83.0-100.0) fL MCH 32.9 (28.0-33.3) pg MCHC 34.2 (31.6-35.5) g/dL RDW 13.6 (11.5-14.5) % Plt Count 239 (140-400) K/mcL MPV 9.6 (9.4-12.4) fL Immature Gran % 0.2 (0-4) % Seg Neutrophils % 71.3 % Lymphocytes % 18.2 % Monocytes % 6.8 % Eosinophils % 2.9 % Basophils % 0.6 % Neutrophils # 6.4 (1.6-8.9) K/mcL Lymphocytes # 1.6 (0.6-4.6) K/mcL Monocytes # 0.6 (0.0-1.3) K/mcL Eosinophils # 0.3 (0.0-0.6) K/mcL Basophils # 0.1 (0.0-0.2) K/mcL Sodium 132 L (136-145) mEq/L Potassium 4.2 (3.5-5.1) mEq/L Chloride 106 (98-107) mEq/L Carbon Dioxide 24 (23-29) mEq/L BUN 35 H (8-23) mg/dL Creatinine 1.28 (0.70-1.30) mg/dL Est GFR ( Amer) > 60 (> 60) Est GFR (Non-Af Amer) 54 L (> 60) BUN/Creatinine Ratio 27 H (6-26) Glucose 175 H (70-105) mg/dL Calculated Osmolality 286 (280-300) Calcium 9.0 (8.6-10.3) mg/dL Troponin I < 0.03 (< 0.04) ng/mL B-Natriuretic Peptide 136 H (Less than 100) pg/mL
== END 2018-02-04 13:57 | disposition home or self-care (01) ==
LOC: 3BNU 14:52 → EMEROO 14:52 → SUATTDRO 16:59 → 3BNU 17:26
PROVIDERS: ADMIT Internal Medicine; ATTEND Internal Medicine

== ENCOUNTER 2018-03-06 08:15 | Inpatient (IN) ==
[2018-03-06] MEDS ORDERED: CeFAZolin Syr 2,000MG/20 ML 2,000 MG/20 ML SYRINGE IVPB ONE (08:38)
--- NOTE | 2018-03-06 08:45 | History & Physical Report ---
Date of Encounter: 03/06/18 Time of Encounter: 08:45 24 Hour HP Update - Instructions Instructions: If the History and Physical is less than 30 days old and was completed prior to A.M. admission and or procedure and has NOT been updated on calendar day of procedure please complete this update prior to performing procedure. - Update Patient reports changes in Medical Condition: No Changes in examination, assessment, or condition: No Changes in Medication: No Preop tests/diagnostics Reviewed: Yes Surgery Remains Indicated: Yes Consent for Planned Operative Procedure(s) Verified: Yes - Pre-Operative Checklist Preoperative Checklist Indicated: No Prophylactic Antibiotic Ordered: Yes Is VTE Prophylaxis Indicated?: Yes
[2018-03-06] MEDS ORDERED: Famotidine 20 MG/2 ML VIAL IVP ONE (08:51)
[2018-03-06] MEDS ORDERED: Pregabalin 75 MG CAPSULE PO ONE (08:51)
[2018-03-06] MEDS ORDERED: Acetaminophen IV 1,000 MG/100 ML INFUS..BTL IVPB ONE (08:51)
--- NOTE | 2018-03-06 08:57 | Anesthesia Evaluation PreOp ---
Date of Encounter: 03/06/18 Time of Encounter: 08:55 - Past History Planned Operation: Robotic R-TKR Cardiac History: HTN, Hyperlipidemia, Arrhythmia (Paroxysmal AFib rate controlled on Sotalol, Anticoagulated on Xarelto [off x 4 days]), Other (Mitral Stenosis) Pulmonary History: Smoker (quit 15yrs ago), MELISSA Dx (denies) Other Medical History: Diabetes Type II, Other (Colon Ca, Chronic Fatigue, Lymphedema) Anesthesia History: No Prior Anesthetic Complications, Past Anesthesia (BRIAN Cardioversion02/2012, L-wrist srugery, Hernia repair, Karma, Colon resection re: colon Ca 1995, L -TKR 2012, revision L-TKR 03/2017) Alcohol Use: none Drug use: none Medications and Allergies Lovastatin 40 mg PO DAILY 02/22/17 [History] Metformin HCl [Glucophage] 1,000 mg PO BID 02/22/17 [History] Rivaroxaban [Xarelto] 15 mg PO DAILY 02/22/17 [History] Saxagliptin HCl [Onglyza] 5 mg PO DAILY 02/22/17 [History] Sotalol HCl [Betapace] 120 mg PO BID 02/22/17 [History] HYDROcodone/Acet 10/325 mg [[place] 10-325 mg] 1 tab PO Q6H PRN #28 tablet [Rx] Multivitamin [One Daily Essential] 1 tab PO DAILY 04/11/17 [History] Psyllium Husk [Metamucil] 2 cap PO DAILY 04/11/17 [History] Lisinopril [Zestril] 20 mg PO DAILY #30 tablet 02/04/18 [Rx] Ferrous Sulfate [Iron] 325 mg PO DAILY 03/06/18 [History] Magnesium Oxide [Magnesium] 400 mg PO DAILY 03/06/18 [History] 3 Allergy/AdvReac Type Severity Reaction Status Date / Time No Known Allergies Allergy Verified 04/11/17 10:50 - Meds/Allergy Pre-op Review Medications Reviewed: Yes Allergies Reviewed: Yes Beta Blockers on Current Med List: Yes (Sotalol) If Beta Blockers taken, Date/Time (Last Dose taken): 03/06/2018 @ 0500 Anesthesia Results - Labs Laboratory Tests 02/11/18 03/02/18 03/02/18 08:12 12:55 12:55 WBC Hgb Hct Plt Count PT 16.8 H INR 1.5 APTT 40.8 H Sodium 137 Potassium 4.5 Chloride 103 Carbon Dioxide 28 BUN 27 H Creatinine 1.24 Est GFR ( Amer) > 60 Est GFR (Non-Af Amer) 56 L Glucose 137 H Est Mean Plasma Glucose Hemoglobin A1c Calcium 9.5 Magnesium 2.0 03/02/18 03/02/18 12:55 13:05 WBC 8.8 Hgb 11.6 L Hct 35.1 L Plt Count 297 PT INR APTT Sodium Potassium Chloride Carbon Dioxide BUN Creatinine Est GFR ( Amer) Est GFR (Non-Af Amer) Glucose Est Mean Plasma Glucose 148 Hemoglobin A1c 6.8 H Calcium Magnesium - Imaging EKG: image reviewed (65bpm SINUS RHYTHM Electronically Signed On 02-06-2018 16:32 :48 EDT by Keesha Levine) Additional studies: ECHO 02/03/2018 EV/EV echocardiogram Impressions: LVEF 60-65%. Normal LV chamber size, wall thickness and function. Moderate left ventricular diastolic dysfunction. Normal right ventricular structure and function. Moderate mitral annular calcification. Moderate mitral stenosis by Doppler. Mean gradient 7 mmHg (HR 88 bpm). No evidence of pulmonary hypertension. No significant changes compared to prior report from 2012. Left Ventricular Wall Motion: Rest Echo Findings All wall segments showed normal motion. Anesthesia Exam O2 Sat Height 1.83 m Height 1.83 m Weight 117.934 kg Weight 117.934 kg O2 Sat by Pulse Oximetry 97 Vital Signs Temp Pulse Resp BP Pulse Ox 97.5 F L 66 18 135/70 97 03/06/18 08:38 03/06/18 08:38 03/06/18 08:38 03/06/18 08:38 03/06/18 08:38 Height: 6' Weight: 260# BMI = 35.3 NPO (# of Hours): MNOc - HEENT Pupil (Motor): Pupils equal, EOMI Mallampati: II Teeth: Edentulous (upper) Oral Opening: Greater than 3 - [employer] OPERATOR LOC: Oriented [employer]AVE [employer] OPERATOR Motor: Normal RUE, Normal LUE, Normal RLE, Normal LLE, Normal Face [employer] SHAVE [employer] OPERATOR Sensory: Normal: RUE, LUE, RLE, LLE, Face - Cardiac Rhythm: Regular Murmur: None - Pulmonary Breath Sounds: bilateral Clear Respiratory Effort: Symmetrical Anesthesia Assess/Plan ASA Score: 3 (Paroxysmal AFib, HTN, Chol, DM, Colon Ca) Modified [place] Scale for Level of Consciousness: Cooperative, oriented, and tranquil Anesthetic Plan: General, Regional (SAB + Femoral Nerve Block) Monitoring Plan: Standard Monitors Recovery Plan: PACU Anes Supervising Prov Stmt: PT seen/evaluated, R&B discussed, questions answered and consent obtained. Coco Carrizales MD
[2018-03-06] MEDS ORDERED: *HR* FentaNYL (PF) 100 MCG/2 ML VIAL ONE (09:05)
[2018-03-06] MEDS ORDERED: Lidocaine -MPF 2% 2 ML VIAL ONE ×3 (09:05→10:14)
[2018-03-06] MEDS ORDERED: *HR* Propofol 200 MG/20 ML VIAL IVP ONE ×3 (09:05→11:42)
[2018-03-06] MEDS ORDERED: Ondansetron 4 MG/2 ML VIAL ONE (09:06)
[2018-03-06] MEDS ORDERED: Dexamethasone 4 MG/ML VIAL ONE (09:06)
[2018-03-06] MEDS: Ringers Solution, Lactated 1,000 ML IVC SCH ×2 (09:15→10:47)
[2018-03-06] MEDS ORDERED: ROPIVACAINE HCL/PF 0.5% 30 ML VIAL ONE (09:49)
[2018-03-06] MEDS ORDERED: *HR* Morphine Sulfate/PF 10 MG/10 ML AMPUL ONE (09:49)
[2018-03-06] MEDS ORDERED: Lidocaine -MPF 1% 5 ML AMPUL ONE (09:49)
[2018-03-06] MEDS ORDERED: Bupivacaine/Clonidine Syringe 1 EACH SYRINGE ONE (09:50)
[2018-03-06] MEDS ORDERED: Ethanol\\Acetic Acid\\Na Ace\\Ben 1,000 ML IRRIG.SOLN IR ONE (10:15)
--- NOTE | 2018-03-06 10:32 | Anesthesia Procedures ---
Date of Encounter: 03/06/18 Time of Encounter: 10:15 Procedures: Anesthesia - Epidural/Spinal Patient ID/Chart reviewed: Yes Patient examined: Yes Supplemental Oxygen: Nasal Cannula Supplemental Oxygen Rate (L/min): 2 Sedation: Fentanyl (mcg): 25 Site Prep: Aseptic Technique, Sterile prep and drape, 0.5% Chlorhexidine/Alcohol Patient position: upright Local Anesthetic: Lidocaine 1% Blood: No CSF: Yes Paresthesia: No Spinal Needle Gauge: 22 Spinal Dose: 1.5 ml of 5% bupivacaine with 200 mcgs of duramorp Procedure: robotic right total knee - Nerve Block Procedure Date: 03/06/18 Time: 10:20 Checklist: Correct Patient Identifier, Correct procedure Correct side: Right Indication: Post Op Analgesia Block Type: Other (adductor canal and iPACK) Catheter placed: No Sterile Technique: Yes Ultrasound used: Yes Anatomy identified: Yes Visual spread of Local: Yes Neuro Stimulation: Yes Nerve Stimulator Range: 0.2 - 0.4 mA Blood on Needle Aspiration: No Smooth Injection of Local: Yes Pain with Injection of Local: Yes Prep: Chlorhexadine Needle: 22 x 50 mm Stimuplex, 21 x 100 mm Stimuplex Local: 0.25% Bupivicaine w/Clonidine 20 mcg/cc, Ropivacaine (30 ml 0.5 % with 8mg of decadron) Volume (cc): 50 ml total Number of Attempts: 1 Complications: None/effective block (1) Vitals: O2 Sat Height 1.83 m Height 1.83 m Weight 117.934 kg Weight 117.934 kg O2 Sat by Pulse Oximetry 98 O2 Sat by Pulse Oximetry 99 O2 Sat by Pulse Oximetry 97 O2 Sat by Pulse Oximetry 97 O2 Sat by Pulse Oximetry 97 O2 Sat by Pulse Oximetry 97 O2 Sat by Pulse Oximetry 96 O2 Sat by Pulse Oximetry 97 Vital Signs Temp Pulse Resp BP Pulse Ox 97.5 F L 66 18 135/70 97 03/06/18 08:38 03/06/18 08:38 03/06/18 08:38 03/06/18 08:38 03/06/18 08:38
--- NOTE | 2018-03-06 10:33 | Discharge Summary ---
<Amadeo Martin - Last Filed: 03/08/18 12:06> Orders not resulted at time of discharge: Pending orders 03/06/18 08:52 US anesthesia pain block [US] Routine 03/06/18 18:28 Red Blood Cells [BBK] Stat Type and Screen [BBK] Routine Date of Encounter: 03/08/18 - Discharge Diagnosis (1) Acute blood loss anemia Status: Acute (2) Acute kidney injury Priority: Primary Status: Acute - Hospital Course Hospital course: Mr. Quinn is a 82 year old male - Time Spent with Patient Total time spent providing and/or coordinating discharge services: - Discharge Medications Home Medications: Lovastatin 40 mg PO DAILY 02/22/17 [History] Metformin HCl [Glucophage] 1,000 mg PO BID 02/22/17 [History] Rivaroxaban [Xarelto] 15 mg PO DAILY 02/22/17 [History] Saxagliptin HCl [Onglyza] 5 mg PO DAILY 02/22/17 [History] Sotalol HCl [Betapace] 120 mg PO BID 02/22/17 [History] HYDROcodone/Acet 10/325 mg [Freeman 10-325 mg] 1 tab PO Q6H PRN #28 tablet [Rx] Multivitamin [One Daily Essential] 1 tab PO DAILY 04/11/17 [History] Lisinopril [Zestril] 20 mg PO DAILY #30 tablet 02/04/18 [Rx] Ferrous Sulfate [Iron] 325 mg PO DAILY 03/06/18 [History] HYDROcodone/Acet 5/325 mg [Freeman 5-325 mg] 1 tab PO DAILY 7 Days #14 tab [Rx] Magnesium Oxide [Magnesium] 400 mg PO DAILY 03/06/18 [History] Allergies/Adverse Reactions: 3 Allergy/AdvReac Type Severity Reaction Status Date / Time No Known Allergies Allergy Verified 04/11/17 10:50 Date of admission: 03/06/18 18:26 Primary care physician: Wilmer Maravilla DO Consults: 03/06/18 13:46 Consult to Occupational Therapy [CONS] Routine Comment: Evaluate, develop and implement POC Reason for Consult: post knee surgery Does patient have active BEDREST order?: No Is patient medically & hemodynamically stable?: Yes Consult to Orthopedic Navigator [CONS] [CONS] Routine Consult to Physical Therapy [CONS] Routine Comment: Evaluate, develop and impliment POC Reason for Consult: post knee surgery Does patient have active BEDREST order?: No Is patient medically & hemodynamically stable?: Yes Consult to Power Chisel Operator [CONS] Routine Reason for SW Consult: post op joint replacement RT Post Op Consult [CONS] Routine Labs on day of discharge: Labs from last 24 hours 03/08/18 03/08/18 03/07/18 01:09 01:09 07:50 Hgb 9.6 L Hct 28.7 L Sodium 134 L Potassium 4.4 Chloride 102 Carbon Dioxide 28 BUN 39 H Creatinine 1.40 H Est GFR ( Amer) 59 L Est GFR (Non-Af Amer) 49 L BUN/Creatinine Ratio 28 H Glucose 232 H POC Glucose 197 H Calculated Osmolality 295 Calcium 8.5 L - Impressions ITS Impressions Knee X-Ray 03/06/18 00:01 IMPRESSION: Status post right knee arthroplasty without evidence of immediate postoperative complication. D/ / 03/06/2018 13:56:16 Александр Gonzalez MD / kelly Interpreting Provider: Александр Gonzalez MD - Patient Status Disposition: Home Health Service Condition: Good - Discharge Instructions Follow Up With: John Maravilla DO [Primary Care Provider] - Therese Jones PAC [Physician Audio/Visual Operator] - Additional Instructions: Discharge Instructions: Total Knee Replacement Please call [facility] ([phone]), your Primary Care Physician, or report to the Emergency Room if you have any of the following symptoms: Nausea, vomiting, fever greater that 101.5, swelling, chest pain, shortness of breath, increased pain/redness/drainage/odor for your incision site, numbness/ tingling, or any other concerning symptoms. ACTIVITY:Weight-bearing as tolerated. You may progress off support (crutches or walker) as tolerated. Incentive Spirometer 10 times an hour. MEDICATIONS: Upon discharge resume your home medications. Take all the medications as prescribed. Take a stool softener if taking narcotic pain medications. Stool softeners are only effective if you drink enough fluids. Drink 6-8 glass of water or fluids a day, unless this is not allowed for another health problem. Despite using stool softeners, if you haven't had a bowel movement in 3 days, please switch to a gentle laxative. Gentle laxatives are sold over the counter. You should have a bowel movement within 24 hours, if not call the office. You will be discharged from the hospital with a prescription for pain medication. You are encouraged to decrease the use of narcotic pain medication as tolerated. Should you require a refill, please call the office. [facility] prescribes narcotic pain medication for only 4-6 weeks after surgery. If you require pain medication beyond this time period, you may be referred to your Primary Care Physician or to the Pain Clinic for further evaluation. Plan ahead for refills on pain medication as many narcotics either need to be picked up at the office or mailed. It is best to call 48-72 hours in advance of needing a prescription refill so you don't run out of medication. To help control the post-operative pain, you may take NSAIDs (Aleve,Advil, Motrin, Ibuprofen, Naprosyn) or Tylenol as prescribed on the bottle in addition to the pain medication. ANTICOAGULATION (blood thinners): Continue your Aspirin, Lovenox or Coumadin as prescribed to help prevent a blood clot in the leg or in the lungs. As long as your incision remains dry and you tolerate the NSAIDs (Aleve, Advil, Motrin, ibuprofen, naprosyn), it is OK to use the NSAIDS while you are taking your anticoagulation medication. Should your incision start to drain, stop the NSAID and contact our office. Common symptoms of blood clot in the legs include: localized pain, swelling, calf tenderness, redness or discoloration of the skin. Blood clot in the lung symptoms include: shortness of breath, rapid pulse, sweating, and chest pain that worsens with deep breathing, coughing up blood, lightheadedness, feelings of anxiety. If you experience any of these symptoms notify your physician immediately, go to the emergency room, or if having trouble breathing, call 911. WOUND CARE: Leave the dressing on for 7 to 10days. You may change the dressing if it becomes saturated greater than 50%. Do not get the dressing wet at anytime. Wash your hands with antibacterial soap, rinse and dry prior to any wound care. If you have nata the visiting nurse or rehab facility can remove the stapes 10-14 days after surgery and place steri-strips across the wound. Leave the steri-strips in place until they fall off on their won. You may let water from the shower run on top of the steri-strips. If you do not have a visiting nurse or rehab facility, you will need to return to the office at 10-14 days for the nata to be removed. If you have itching or redness around the dressing call the office. FOLLOW-UP: Please follow up with your surgeon in the orthopedic clinic in 4 weeks from the day of surgery. If you have nata that need to be removed, you will need to come back to the office in 10-14 days from the day of surgery. <Therese Jones - Last Filed: 03/08/18 14:47> Orders not resulted at time of discharge: Pending orders 03/05/18 22:12 H/H [Hemoglobin and Hematocrit] [HEME] Routine 03/06/18 00:01 XR knee RT limited 1-2V [XR] Routine 03/06/18 08:52 US anesthesia pain block [US] Routine Date of Encounter: 03/08/18 Time of Encounter: 14:43 - Discharge Diagnosis (1) Arthritis of knee, right Priority: Primary Status: Acute (2) Status post total knee replacement, right Priority: Primary Status: Acute (3) Anticoagulated Priority: Secondary Status: Chronic Comments: Resume Xarelto same day of surgery, 24 hours telemetry. (4) Chronic pain Priority: Secondary Status: Chronic Comments: Takes Freeman 10/325 TID, will give one RX of Freeman 5/325 for breakthrough pain. Then transition to regular pain medication. Qualifiers: Chronic pain type: other chronic pain Qualified Code(s): G89.29 - Other chronic pain (5) DMII (diabetes mellitus, type 2) Priority: Secondary Status: Chronic Qualifiers: Diabetes mellitus residential insulin use: without termite control technician use Diabetes mellitus complication status: with unspecified complications Qualified Code(s) : E11.8 - Type 2 diabetes mellitus with unspecified complications (6) HTN (hypertension) Priority: Secondary Status: Chronic Qualifiers: Hypertension type: essential hypertension Qualified Code(s): I10 - Essential (primary) hypertension (7) Obesity (BMI 30.0-34.9) Priority: Secondary Status: Chronic (8) Pre-syncope Priority: Secondary Status: Chronic (9) Acute blood loss anemia Priority: Primary Status: Acute Comments: H/H dropped; patient is asymptomatic. Vitals stable. Abnormal Labs 03/06/18 03/06/18 03/06/18 08:35 12:59 16:21 Hgb 10.5 L Hct 31.6 L Sodium BUN Creatinine Est GFR ( Amer) Est GFR (Non-Af Amer) BUN/Creatinine Ratio Glucose POC Glucose 147 H 248 H Calcium Crossmatch 03/06/18 03/06/18 03/07/18 18:28 19:06 05:26 Hgb 9.4 L Hct 28.9 L Sodium BUN Creatinine Est GFR ( Amer) Est GFR (Non-Af Amer) BUN/Creatinine Ratio Glucose POC Glucose 240 H Calcium Crossmatch See Detail 03/07/18 03/07/18 03/07/18 05:26 07:50 12:30 Hgb Hct Sodium 133 L BUN 35 H Creatinine 1.48 H Est GFR ( Amer) 55 L Est GFR (Non-Af Amer) 46 L BUN/Creatinine Ratio Glucose 238 H POC Glucose 197 H 194 H Calcium 8.3 L Crossmatch 03/07/18 03/07/18 03/08/18 15:59 20:16 01:09 Hgb 9.6 L Hct 28.7 L Sodium BUN Creatinine Est GFR ( Amer) Est GFR (Non-Af Amer) BUN/Creatinine Ratio Glucose POC Glucose 172 H 227 H Calcium Crossmatch 03/08/18 03/08/18 03/08/18 01:09 07:11 11:51 Hgb Hct Sodium 134 L BUN 39 H Creatinine 1.40 H Est GFR ( Amer) 59 L Est GFR (Non-Af Amer) 49 L BUN/Creatinine Ratio 28 H Glucose 232 H POC Glucose 224 H 216 H Calcium 8.5 L Crossmatch - Hospital Course Hospital course: Mr. Quinn is a 82 year old malem Right TKR, 03/06 - history of left tkr . Chronic pain - resuming medication. Atrial fib hx - Resume Xarelto Patient seen at bedside, without complaints. A&O x 3 Afebrile, vital signs stable Vital Signs Temp Pulse Resp BP Pulse Ox 03/08/18 11:52 99.2 F 72 16 154/75 97 03/08/18 07:09 98.7 F 77 16 125/61 96 03/08/18 04:54 98.4 F 77 18 147/66 95 03/07/18 23:19 98.6 F 76 18 123/72 96 03/07/18 20:14 99.0 F 75 19 125/56 99 03/07/18 15:17 98.2 F 67 18 120/62 96 Intake and Output 03/07/18 03/08/18 03/08/18 23:59 07:59 15:59 Intake Total 100 / 100 50 / 50 240 / 240 Output Total 250 / 250 225 / 225 500 / 500 Balance -150 / -150 -175 / -175 -260 / -260 Intake: Oral 100 / 100 50 / 50 240 / 240 Output: Urine 250 / 250 225 / 225 500 / 500 Other: Meal Breakfast Percent of Meal Consumed 0% # Voids 1 Weight 122.9 kg Blood Glucose* 227 224 216 Patient Weight 03/08/18 23:59 Weight 122.9 kg Labs reviewed. H/H - stable, asymptomatic Typed and crossed 03/07 Slight decrease in kidney function - Bolus 500ml 03/07 Abnormal Labs 03/06/18 03/06/18 03/06/18 08:35 12:59 16:21 Hgb 10.5 L Hct 31.6 L Sodium BUN Creatinine Est GFR ( Amer) Est GFR (Non-Af Amer) BUN/Creatinine Ratio Glucose POC Glucose 147 H 248 H Calcium Crossmatch 03/06/18 03/06/18 03/07/18 18:28 19:06 05:26 Hgb 9.4 L Hct 28.9 L Sodium BUN Creatinine Est GFR ( Amer) Est GFR (Non-Af Amer) BUN/Creatinine Ratio Glucose POC Glucose 240 H Calcium Crossmatch See Detail 03/07/18 03/07/18 03/07/18 05:26 07:50 12:30 Hgb Hct Sodium 133 L BUN 35 H Creatinine 1.48 H Est GFR ( Amer) 55 L Est GFR (Non-Af Amer) 46 L BUN/Creatinine Ratio Glucose 238 H POC Glucose 197 H 194 H Calcium 8.3 L Crossmatch 09/05/1403/07/18 03/08/18 15:59 20:16 01:09 Hgb 9.6 L Hct 28.7 L Sodium BUN Creatinine Est GFR ( Amer) Est GFR (Non-Af Amer) BUN/Creatinine Ratio Glucose POC Glucose 172 H 227 H Calcium Crossmatch 03/08/18 03/08/18 03/08/18 01:09 07:11 11:51 Hgb Hct Sodium 134 L BUN 39 H Creatinine 1.40 H Est GFR ( Amer) 59 L Est GFR (Non-Af Amer) 49 L BUN/Creatinine Ratio 28 H Glucose 232 H POC Glucose 224 H 216 H Calcium 8.5 L Crossmatch Pain control: adequate *Chronic pain - continue at discharge. Participating in PT. All questions and concerns addressed. Educated on use of incentive spirometer. Encouraged ambulation and proper hydration. Patient educated on post-operative restrictions and post-operative care. Assessment and plan: Continue with postoperative care Discharge plan: Home, discharge in stable condition today - Time Spent with Patient Total time spent providing and/or coordinating discharge services: Primary care physician: Wilmer Maravilla DO Anticipated date of discharge: 03/08/18 - Patient Status Functional capacity at discharge: uses cane/walker Overall status at discharge: patient is back to baseline - Diet and Activity Activity: as per physical therapy
[2018-03-06] MEDS ORDERED: EPHEDrine 50 MG/ML VIAL ONE (11:01)
[2018-03-06] MEDS ORDERED: *HR* PHENYLEPHRINE 1,000 MCG/10 ML SYRINGE IVP ONE (11:21)
[2018-03-06] MEDS ORDERED: 0.9 % Sodium Chloride 500 ML IVC ONE (11:48)
--- NOTE | 2018-03-06 12:01 | Orthopedic Operative Note ---
Date of procedure: 03/06/18 Pre-op diagnosis: Right knee arthritis Post-op diagnosis: same Procedure: Procedure: Right robotic-assisted Total knee replacement Estimated blood loss: 200 cc Hardware: Metal and polyethylene replacement. [place] Femur: 7 Tibia: 7 TS insert: 13 Patella: 39 Exam Under anesthesia: 40 degrees flexion contracture a degree varus as calculated by the robot full flexion and no instability Procedural Notes: Grade 4 arthritic changes all 3 compartments. Operative procedure: The patient was brought to the operating room and placed on the operating room table. After general anesthesia was administered the operative knee was examined. Findings were noted in the exam under anesthesia. The operative extremity was prepped and draped in sterile surgical fashion. The patient received IV antibiotics prior to skin incision. A standard midline incision was made centered over the patella. The incision was made through the skin and subcutaneous tissue. A medial parapatellar tendon approach was performed. Care was taken to preserve tissue along the medial aspect of the patella. And to protect the patella tendon. The deep MCL was released off the medial tibia. The infra patella fat pad was excised. The patella was everted and cut was made at the level of the insertion of the quadriceps and patella tendon. The patella was sized to 39 the guide was seated and the lug holes are drilled. Knee was brought into flexion. Patient noted to have grade 4 arthritic changes all 3 compartments. Steinmann pins were placed in the tibia and the femur for the tibial and femoral arrays respectively. Checkpoints were also placed in the tibia and the femur for calculation purposes. The knee including the femur and the tibial registered. Osteophytes, ACL and PCL were excised at this point. Extension and flexion were assessed with a valgus stress components were adjusted on the computer to balance the knee. Femoral cuts were made first with robotic assistance, these included the anterior cut posterior cuts chamfer cuts. Tibial cut was then performed with robotic assistance as well. Bone fragments were removed, as well as the medial and lateral meniscus. The size 7 femoral guide was seated box cut was made lug holes are drilled. The size 7 tibial tray was seated and prepared with the fin cutter. Trial reduction with the 13 TS Harriet revealed extension of 0 degree and 60 degree varus full flexion. No varus valgus instability. Trial reduction revealed excellent patella tracking. All trial components were removed all bony surfaces were irrigated. The Tibia was seated followed by the femur, The Harriet size 13 was seated and secured patella. Patient had similar findings for motion and stability. The knee was closed by the PA. The knee was then irrigated out with 2 L of pulse irrigation. The extensor mechanism was closed with #2 FiberWire suture and #2 PDS suture. The subcutaneous tissue was then irrigated and closed deep with #1 PDS suture superficially with 0 PDS suture and skin was closed with zip tie The patient was then placed in a sterile dressing and a postoperative brace extubated and transferred to recovery room in stable condition. Anesthesia: spinal Surgeon: Amadeo Martin Was there an workers compensation claims assistant present: Yes Dental Ceramist Assistant: Therese Jones Estimated blood loss (cc): 200 Condition: stable Disposition: PACU
--- NOTE | 2018-03-06 12:57 | Anesthesia Evaluation Post Op ---
Date of Encounter: 03/06/18 Time of Encounter: 12:55 - Vital Signs Vital Signs: Vital Signs - Last 8 Hours Temp Pulse Resp BP Pulse Ox 03/06/18 12:44 61 18 106/64 93 03/06/18 12:34 65 20 112/88 94 03/06/18 12:24 97.0 F L 97 12 94/55 97 03/06/18 10:44 57 15 99/51 97 03/06/18 10:36 58 15 94/53 98 03/06/18 10:32 59 16 93/50 98 03/06/18 10:27 62 15 102/56 98 03/06/18 10:23 62 15 128/66 99 03/06/18 10:17 66 16 157/86 97 03/06/18 10:12 68 16 160/100 97 03/06/18 10:08 66 15 162/94 97 03/06/18 10:02 69 15 171/94 97 03/06/18 10:00 67 15 136/90 96 03/06/18 08:38 97.5 F L 66 18 135/70 97 Intake and Output 03/05/18 03/06/18 03/06/18 23:59 07:59 15:59 Intake Total 1000 / 1000 Output Total 200 / 200 Balance 800 / 800 Intake: IV Fluids 1000 / 1000 Lactated Ringers 1,000 ML @ 25 1000 / 1000 mls/hr IVC .Q24H [facility] Rx#: [id number] Output: Estimated Blood Loss 200 / 200 Other: Weight 117.934 kg Blood Glucose* 147 Patient Weight 03/06/18 23:59 Weight 117.934 kg - Lungs Lungs: Clear Ascult./Percussion - Airway Airway: Non-obstructed - Cardiovascular Regular Rate, Baseline Rhythm - Mental Status Mental Status: Alert & Oriented, Answers Appropriately - Pain Pain Scale: 0 (blocked-denies pain ) Pain Scale used: Numeric (1 - 10) - Nausea Vomiting Nausea Vomiting: Not Present - Hydration Hydration: Tolerates oral liquids, Ice chips - Discharge PostOp Status: Transfer Patient to floor
[2018-03-06 13:28] LABS: Hematocrit 31.6 % (37.5-50.1); Hemoglobin 10.5 g/dL (12.9-16.9)
[2018-03-06] MEDS ORDERED: MOM Conc 10 ML UD.LIQ PO PRN (13:46)
[2018-03-06] MEDS ORDERED: Ringers Solution, Lactated 1,000 ML IVC SCH (13:46)
[2018-03-06] MEDS ORDERED: *HR* Dextrose 50 % in Water (Syg) 50 ML SYRINGE IVP PRN (13:46)
[2018-03-06] MEDS ORDERED: Temazepam 15 MG CAPSULE PO PRN (13:46)
[2018-03-06] MEDS ORDERED: D5% in Water 1,000 ML IVC PRN (13:46)
[2018-03-06] MEDS ORDERED: traMADol 50 MG TABLET PO PRN (13:46)
[2018-03-06] MEDS ORDERED: Ondansetron 4 MG/2 ML VIAL IVP PRN (13:46)
[2018-03-06] MEDS ORDERED: Sennosides 8.6 MG TABLET PO PRN (13:46)
[2018-03-06] MEDS ORDERED: *HR* OxyCODONE/APAP 5/325 TABLET PO PRN (13:46)
[2018-03-06] MEDS ORDERED: Naloxone 0.4 MG/ML INJ IVP PRN (13:46)
[2018-03-06] MEDS ORDERED: Dextrose Gel 15 GM/37.5 ML TUBE PO PRN ×2 (13:46)
[2018-03-06] MEDS: Insulin LISPRO 300 UNITS/3 ML VIAL SQ SCH ×3 (14:00→20:43)
[2018-03-06] MEDS: *HR* OxyCODONE Immed Rel 5 MG TABLET PO PRN (17:31)
[2018-03-06] MEDS: *HR* Metformin 500 MG TABLET PO SCH (20:36)
[2018-03-07] MEDS: *HR* OxyCODONE Immed Rel 5 MG TABLET PO PRN ×4 (04:52→23:42)
[2018-03-07 06:03] LABS: Hematocrit 28.9 % (37.5-50.1); Hemoglobin 9.4 g/dL (12.9-16.9)
[2018-03-07 06:25] LABS: Calcium 8.3 mg/dL (8.6-10.3)
--- NOTE | 2018-03-07 08:25 | Orthopedics Progress Note ---
Date of Encounter: 03/07/18 Time of Encounter: 08:24 - Assessment and Plan (1) Acute blood loss anemia Current Visit: Yes Status: Acute Subjective Interval history: Patient was seen this morning doing well without complaints. Afebrile vital signs stable. Operative extremity: Neurovascularly intact Dressing clean dry and intact Calves nontender Assessment and plan: Continue with postoperative care Hematocrit 28.9 Objective Vital signs: Vital Signs Temp Pulse Resp BP Pulse Ox 03/07/18 07:14 97.6 F 61 16 102/48 97 03/07/18 03:24 98.1 F 65 16 120/64 96 03/06/18 23:36 97.9 F 66 18 117/63 97 03/06/18 19:57 98.1 F 73 17 153/78 96 03/06/18 15:29 97.5 F L 64 18 122/74 98 03/06/18 14:30 98.1 F 65 18 108/63 95 03/06/18 14:01 98.1 F 64 19 112/63 99 03/06/18 13:34 98.1 F 60 18 119/59 98 03/06/18 13:13 64 18 105/52 96 03/06/18 13:04 60 18 114/56 93 03/06/18 12:54 97.4 F L 60 16 113/62 93 03/06/18 12:44 61 18 106/64 93 03/06/18 12:34 65 20 112/88 94 03/06/18 12:24 97.0 F L 97 12 94/55 97 03/06/18 10:44 57 15 99/51 97 03/06/18 10:36 58 15 94/53 98 03/06/18 10:32 59 16 93/50 98 03/06/18 10:27 62 15 102/56 98 03/06/18 10:23 62 15 128/66 99 03/06/18 10:17 66 16 157/86 97 03/06/18 10:12 68 16 160/100 97 03/06/18 10:08 66 15 162/94 97 03/06/18 10:02 69 15 171/94 97 03/06/18 10:00 67 15 136/90 96 03/06/18 08:38 97.5 F L 66 18 135/70 97 Intake and Output 03/06/18 03/07/1818 23:59 07:59 15:59 Intake Total 100 / 100 100 / 100 Balance 100 / 100 100 / 100 Intake: IV Fluids 100 / 100 Ancef 2,000 MG In 0.9 % Sodium 100 / 100 Chloride 100 ML @ 200 mls/hr IVPB Q8HR [facility] Rx#:[id number] Oral 100 / 100 Other: # Voids 1 Weight 117.9 kg Blood Glucose* 240 - Labs CBC & BMP: 03/07/18 05:26 03/07/18 05:26 Labs: Abnormal lab results Hgb 9.4 g/dL (12.9-16.9) L 03/07/18 05:26 Hct 28.9 % (37.5-50.1) L 03/07/18 05:26 Sodium 133 mEq/L (136-145) L 03/07/18 05:26 BUN 35 mg/dL (8-23) H 03/07/18 05:26 Creatinine 1.48 mg/dL (0.70-1.30) H 03/07/18 05:26 Est GFR ( Amer) 55 (> 60) L 03/07/18 05:26 Est GFR (Non-Af Amer) 46 (> 60) L 03/07/18 05:26 Glucose 238 mg/dL (70-105) H 03/07/18 05:26 POC Glucose 240 mg/dL (70-99) H 03/06/18 19:06 Calcium 8.3 mg/dL (8.6-10.3) L 03/07/18 05:26 - VTE Documentation of Mechanical Device: Venous foot pump, device Consult Discharge Plan - Plan Referrals: John Maravilla DO [Primary Care Provider] -
[2018-03-07] MEDS: Lisinopril 20 MG TABLET PO SCH (09:25)
[2018-03-07] MEDS: *HR* Metformin 500 MG TABLET PO SCH ×2 (09:25→20:20)
[2018-03-07] MEDS: Magnesium Oxide 400 MG TABLET PO SCH (09:26)
[2018-03-07] MEDS: Insulin LISPRO 300 UNITS/3 ML VIAL SQ SCH ×4 (09:26→20:24)
[2018-03-07] MEDS: Multivit/Ca/Min/Fe/FA 1 TAB TABLET PO SCH (09:26)
[2018-03-07] MEDS ORDERED: 0.9 % Sodium Chloride 500 ML IVC ONE (12:39)
[2018-03-07] MEDS: *HR* Rivaroxaban 15 MG TABLET PO SCH (17:58)
--- NOTE | 2018-03-07 21:36 | Event Note ---
Date of Encounter: 03/07/18 Time of Encounter: 21:35 PCR - POD#Right TKR, 03/06 - history of left tkr . Patient seen at bedside, without complaints. A&O x 3 Afebrile, vital signs stable. Labs reviewed. H/H - stable, asymptomatic Typed and crossed 03/07 Slight decrease in kidney function - Bolus 500ml today. Pain control: adequate *Chronic pain - continue at discharge. Participating in PT. All questions and concerns addressed. Educated on use of incentive spirometer. Encouraged ambulation and proper hydration. Patient educated on post-operative restrictions and post-operative care. Assessment and plan: Continue with postoperative care Discharge plan: Home, discharge Tuesday.
[2018-03-08 01:24] LABS: Hematocrit 28.7 % (37.5-50.1); Hemoglobin 9.6 g/dL (12.9-16.9)
[2018-03-08 01:43] LABS: Calcium 8.5 mg/dL (8.6-10.3); Potassium 4.4 mEq/L (3.5-5.1)
[2018-03-08] MEDS: *HR* OxyCODONE Immed Rel 5 MG TABLET PO PRN ×2 (03:56→08:22)
--- NOTE | 2018-03-08 06:56 | Orthopedics Progress Note ---
Date of Encounter: 03/08/18 Time of Encounter: 06:56 - Assessment and Plan (1) Acute blood loss anemia Current Visit: Yes Status: Acute Subjective Interval history: Patient was seen this morning doing well without complaints. Afebrile vital signs stable. Operative extremity: Neurovascularly intact Dressing clean dry and intact Calves nontender Assessment and plan: Continue with postoperative care Hematocrit 28.7 discharged today Objective Vital signs: Vital Signs Temp Pulse Resp BP Pulse Ox 03/08/18 04:54 98.4 F 77 18 147/66 95 03/07/18 23:19 98.6 F 76 18 123/72 96 03/07/18 20:14 99.0 F 75 19 125/56 99 03/07/18 15:17 98.2 F 67 18 120/62 96 03/07/18 12:27 97.7 F 62 18 110/65 98 03/07/18 07:14 97.6 F 61 16 102/48 97 Intake and Output 03/07/18 03/07/18 03/08/18 15:59 23:59 07:59 Intake Total 120 / 120 100 / 100 50 / 50 Output Total 250 / 250 Balance 120 / 120 -150 / -150 50 / 50 Intake: Oral 120 / 120 100 / 100 50 / 50 Output: Urine 250 / 250 Other: Meal Breakfast Percent of Meal Consumed 100% # Voids 2 1 Weight 122.9 kg Blood Glucose* 194 227 Patient Weight 03/08/18 23:59 Weight 122.9 kg - Labs CBC & BMP: 03/08/18 01:09 03/08/18 01:09 Labs: Abnormal lab results Hgb 9.6 g/dL (12.9-16.9) L 03/08/18 01:09 Hct 28.7 % (37.5-50.1) L 03/08/18 01:09 Sodium 134 mEq/L (136-145) L 03/08/18 01:09 BUN 39 mg/dL (8-23) H 03/08/18 01:09 Creatinine 1.40 mg/dL (0.70-1.30) H 03/08/18 01:09 Est GFR ( Amer) 59 (> 60) L 03/08/18 01:09 Est GFR (Non-Af Amer) 49 (> 60) L 03/08/18 01:09 BUN/Creatinine Ratio 28 (6-26) H 03/08/18 01:09 Glucose 232 mg/dL (70-105) H 03/08/18 01:09 POC Glucose 197 mg/dL (70-99) H 03/07/18 07:50 Calcium 8.5 mg/dL (8.6-10.3) L 03/08/18 01:09 - VTE Documentation of Mechanical Device: Venous foot pump, device Consult Discharge Plan - Plan Additional Instructions: Discharge Instructions: Total Knee Replacement Please call [facility] ([phone]), your Primary Care Physician, or report to the Emergency Room if you have any of the following symptoms: Nausea, vomiting, fever greater that 101.5, swelling, chest pain, shortness of breath, increased pain/redness/drainage/odor for your incision site, numbness/ tingling, or any other concerning symptoms. ACTIVITY:Weight-bearing as tolerated. You may progress off support (crutches or walker) as tolerated. Incentive Spirometer 10 times an hour. MEDICATIONS: Upon discharge resume your home medications. Take all the medications as prescribed. Take a stool softener if taking narcotic pain medications. Stool softeners are only effective if you drink enough fluids. Drink 6-8 glass of water or fluids a day, unless this is not allowed for another health problem. Despite using stool softeners, if you haven't had a bowel movement in 3 days, please switch to a gentle laxative. Gentle laxatives are sold over the counter. You should have a bowel movement within 24 hours, if not call the office. You will be discharged from the hospital with a prescription for pain medication. You are encouraged to decrease the use of narcotic pain medication as tolerated. Should you require a refill, please call the office. [facility] prescribes narcotic pain medication for only 4-6 weeks after surgery. If you require pain medication beyond this time period, you may be referred to your Primary Care Physician or to the Pain Clinic for further evaluation. Plan ahead for refills on pain medication as many narcotics either need to be picked up at the office or mailed. It is best to call 48-72 hours in advance of needing a prescription refill so you don't run out of medication. To help control the post-operative pain, you may take NSAIDs (Aleve,Advil, Motrin, Ibuprofen, Naprosyn) or Tylenol as prescribed on the bottle in addition to the pain medication. ANTICOAGULATION (blood thinners): Continue your Aspirin, Lovenox or Coumadin as prescribed to help prevent a blood clot in the leg or in the lungs. As long as your incision remains dry and you tolerate the NSAIDs (Aleve, Advil, Motrin, ibuprofen, naprosyn), it is OK to use the NSAIDS while you are taking your anticoagulation medication. Should your incision start to drain, stop the NSAID and contact our office. Common symptoms of blood clot in the legs include: localized pain, swelling, calf tenderness, redness or discoloration of the skin. Blood clot in the lung symptoms include: shortness of breath, rapid pulse, sweating, and chest pain that worsens with deep breathing, coughing up blood, lightheadedness, feelings of anxiety. If you experience any of these symptoms notify your physician immediately, go to the emergency room, or if having trouble breathing, call 911. WOUND CARE: Leave the dressing on for 7 to 10days. You may change the dressing if it becomes saturated greater than 50%. Do not get the dressing wet at anytime. Wash your hands with antibacterial soap, rinse and dry prior to any wound care. If you have nata the visiting nurse or rehab facility can remove the stapes 10-14 days after surgery and place steri-strips across the wound. Leave the steri-strips in place until they fall off on their won. You may let water from the shower run on top of the steri-strips. If you do not have a visiting nurse or rehab facility, you will need to return to the office at 10-14 days for the nata to be removed. If you have itching or redness around the dressing call the office. FOLLOW-UP: Please follow up with your surgeon in the orthopedic clinic in 4 weeks from the day of surgery. If you have nata that need to be removed, you will need to come back to the office in 10-14 days from the day of surgery. Referrals: John Maravilla DO [Primary Care Provider] -
[2018-03-08] MEDS: Magnesium Oxide 400 MG TABLET PO SCH (08:22)
[2018-03-08] MEDS: Lisinopril 20 MG TABLET PO SCH (08:22)
[2018-03-08] MEDS: *HR* Metformin 500 MG TABLET PO SCH (08:22)
[2018-03-08] MEDS: Multivit/Ca/Min/Fe/FA 1 TAB TABLET PO SCH (08:22)
[2018-03-08] MEDS: *HR* Rivaroxaban 15 MG TABLET PO SCH (08:22)
[2018-03-08] MEDS: Insulin LISPRO 300 UNITS/3 ML VIAL SQ SCH ×2 (08:25→12:11)
[2018-03-08 11:55] VITALS: BP 154/75
== END 2018-03-08 14:20 | disposition home health service (06) | DRG 470 ==
LOC: SAMDAY 08:15 → 3NENU 13:20
PROVIDERS: ADMIT Orthopaedic Surgery; ATTEND Orthopaedic Surgery

== ENCOUNTER 2018-05-26 11:48 | Observation (INO) ==
[2018-05-26] MEDS ORDERED: 0.9 % Sodium Chloride 1,000 ML IVC ONE (12:14)
--- NOTE | 2018-05-26 12:14 | Emergency Department Note ---
Disposition Clinical Impression: Cough, Fever, Peripheral edema Disposition: Admitted As Inpatient Condition: Fair General Adult HPI - General Chief complaint: ED Weakness Stated complaint: Fever,vomiting,weakness Time Seen by Provider: 05/26/18 11:54 Source: patient, family Limitations: no limitations - History of Present Illness Pain Scale: 0 - Related Data Home Medications Medication Instructions Recorded Confirmed Lovastatin 40 mg PO DAILY 02/22/17 05/26/18 Metformin HCl [Glucophage] 1,000 mg PO BID 02/22/17 05/26/18 Rivaroxaban [Xarelto] 15 mg PO DAILY 02/22/17 05/26/18 Saxagliptin HCl [Onglyza] 5 mg PO DAILY 02/22/17 05/26/18 Sotalol HCl [Betapace] 120 mg PO BID 02/22/17 05/26/18 Multivitamin [One Daily Essential] 1 tab PO DAILY 04/11/17 05/26/18 Magnesium Oxide [Magnesium] 400 mg PO DAILY 03/06/18 05/26/18 Psyllium Husk [Metamucil] 1.04 gm PO DAILY 05/26/18 05/26/18 Previous Rx's Medication Instructions Recorded HYDROcodone/Acet 10/325 mg [[place] 1 tab PO Q6H PRN #28 tablet 04/10/17 10-325 mg] Lisinopril [Zestril] 20 mg PO DAILY #30 tablet 02/04/18 Allergies Allergy/AdvReac Type Severity Reaction Status Date / Time No Known Allergies Allergy Verified 05/26/18 13:32 Past Medical History - Past Medical History Medical history: Reports: atrial fibrillation, cancer, diabetes, hypertension, other Surgical history: Reports: cholecystectomy, herniorrhaphy Psychiatric history: Reports: no psych history - Social History Smoking Status: Never smoker Smokeless Tobacco Status: No Alcohol use: Reports: none Drug use: Reports: none Physical Exam - General Limitations: no limitations General appearance: alert, in no apparent distress Course Vital Signs Temperature 101.6 F H 05/26/18 11:50 Pulse Rate 98 05/26/18 11:50 Respiratory Rate 24 05/26/18 11:50 Blood Pressure 134/62 05/26/18 11:50 O2 Sat by Pulse Oximetry 90 05/26/18 11:50 Temperature 99.8 F H 05/26/18 18:54 Pulse Rate 78 05/26/18 18:54 Respiratory Rate 16 05/26/18 18:54 Blood Pressure 117/63 05/26/18 18:54 O2 Sat by Pulse Oximetry 98 05/26/18 18:54 Oxygen Delivery Oxygen Delivery Nasal Cannula Medical Decision Making - Lab Data Result diagrams: 05/26/18 12:14 05/26/18 12:14 Lab Results 05/26/18 05/26/18 05/26/18 Range/Units 12:04 12:14 12:14 WBC 6.4 (4.3-11.1) K/mcL RBC 3.54 L (4.19-5.50) M/mcL Hgb 10.6 L (12.9-16.9) g/dL Hct 32.2 L (37.5-50.1) % MCV 91.0 (83.0-100.0) fL MCH 29.9 (28.0-33.3) pg MCHC 32.9 (31.6-35.5) g/dL RDW 13.8 (11.5-14.5) % Plt Count 224 (140-400) K/mcL MPV 9.8 (9.4-12.4) fL Immature Gran % 0.2 (0-4) % Seg Neutrophils % 73.0 % Lymphocytes % 14.6 % Monocytes % 11.8 % Eosinophils % 0.2 % Basophils % 0.2 % Neutrophils # 4.6 (1.6-8.9) K/mcL Lymphocytes # 0.9 (0.6-4.6) K/mcL Monocytes # 0.8 (0.0-1.3) K/mcL Eosinophils # 0.0 (0.0-0.6) K/mcL Basophils # 0.0 (0.0-0.2) K/mcL Sodium 131 L (136-145) mEq/L Potassium 4.1 (3.5-5.1) mEq/L Chloride 96 L (98-107) mEq/L Carbon Dioxide 27 (23-29) mEq/L BUN 21 (8-23) mg/dL Creatinine 1.19 (0.70-1.30) mg/dL Est GFR ( Amer) > 60 (> 60) Est GFR (Non-Af Amer) 59 L (> 60) BUN/Creatinine Ratio 18 (6-26) Glucose 233 H (70-105) mg/dL Calculated Osmolality 282 (280-300) Lactic Acid 1.3 (0.5-2.2) mmol/L Calcium 9.0 (8.6-10.3) mg/dL Venous Ioniz Calcium (1.15-1.35) mmol/L Phosphorus 2.9 (2.7-4.5) mg/dL Magnesium 1.7 (1.6-2.6) mg/dL Total Bilirubin 0.8 (0.3-1.0) mg/dL AST 27 (13-39) Units/L ALT 22 (7-52) Units/L Alkaline Phosphatase 108 H (34-104) Units/L Troponin I < 0.03 (< 0.04) ng/mL B-Natriuretic Peptide (Less than 100) pg/mL Serum Total Protein 7.0 (6.4-8.9) g/dL Albumin 3.9 (3.5-5.7) g/dL Globulin 3.1 (2.4-3.5) g/dL Albumin/Globulin Ratio 1.3 (1.1-2.2) TSH 5.340 (0.340-5.600) mcIU/mL Urine Color (Yellow) Urine Clarity (Clear) Urine pH (5.0-8.0) pH Units Ur Specific [place] (1.010-1.025) Urine Protein (Neg-Trace) mg/dL Urine Glucose (UA) (Normal) mg/dL Urine Ketones (Negative) mg/dL Urine Blood (Negative) Urine Nitrite (Negative) Urine Bilirubin (Negative) Urine Urobilinogen (Normal) mg/dL Ur Leukocyte Esterase (Negative) Urine Microscopic RBC (0-3) per hpf Urine Microscopic WBC (0-3) per hpf Ur Squamous Epith Cells (None-Few) per lpf Urine Bacteria (None-Few) per hpf Hyaline Casts (None-Few) per lpf Ur Culture Indicated? (NO) 05/26/18 05/26/18 05/26/18 Range/Units 12:35 12:35 12:43 WBC (4.3-11.1) K/mcL RBC (4.19-5.50) M/mcL Hgb (12.9-16.9) g/dL Hct (37.5-50.1) % MCV (83.0-100.0) fL MCH (28.0-33.3) pg MCHC (31.6-35.5) g/dL RDW (11.5-14.5) % Plt Count (140-400) K/mcL MPV (9.4-12.4) fL Immature Gran % (0-4) % Seg Neutrophils % % Lymphocytes % % Monocytes % % Eosinophils % % Basophils % % Neutrophils # (1.6-8.9) K/mcL Lymphocytes # (0.6-4.6) K/mcL Monocytes # (0.0-1.3) K/mcL Eosinophils # (0.0-0.6) K/mcL Basophils # (0.0-0.2) K/mcL Sodium (136-145) mEq/L Potassium (3.5-5.1) mEq/L Chloride (98-107) mEq/L Carbon Dioxide (23-29) mEq/L BUN (8-23) mg/dL Creatinine (0.70-1.30) mg/dL Est GFR ( Amer) (> 60) Est GFR (Non-Af Amer) (> 60) BUN/Creatinine Ratio (6-26) Glucose (70-105) mg/dL Calculated Osmolality (280-300) Lactic Acid (0.5-2.2) mmol/L Calcium (8.6-10.3) mg/dL Venous Ioniz Calcium 1.08 L TNP (1.15-1.35) mmol/L Phosphorus (2.7-4.5) mg/dL Magnesium (1.6-2.6) mg/dL Total Bilirubin (0.3-1.0) mg/dL AST (13-39) Units/L ALT (7-52) Units/L Alkaline Phosphatase (34-104) Units/L Troponin I (< 0.04) ng/mL B-Natriuretic Peptide 496 H (Less than 100) pg/mL Serum Total Protein (6.4-8.9) g/dL Albumin (3.5-5.7) g/dL Globulin (2.4-3.5) g/dL Albumin/Globulin Ratio (1.1-2.2) TSH (0.340-5.600) mcIU/mL Urine Color (Yellow) Urine Clarity (Clear) Urine pH (5.0-8.0) pH Units Ur Specific [place] (1.010-1.025) Urine Protein (Neg-Trace) mg/dL Urine Glucose (UA) (Normal) mg/dL Urine Ketones (Negative) mg/dL Urine Blood (Negative) Urine Nitrite (Negative) Urine Bilirubin (Negative) Urine Urobilinogen (Normal) mg/dL Ur Leukocyte Esterase (Negative) Urine Microscopic RBC (0-3) per hpf Urine Microscopic WBC (0-3) per hpf Ur Squamous Epith Cells (None-Few) per lpf Urine Bacteria (None-Few) per hpf Hyaline Casts (None-Few) per lpf Ur Culture Indicated? (NO) 05/26/18 Range/Units 14:15 WBC (4.3-11.1) K/mcL RBC (4.19-5.50) M/mcL Hgb (12.9-16.9) g/dL Hct (37.5-50.1) % MCV (83.0-100.0) fL MCH (28.0-33.3) pg MCHC (31.6-35.5) g/dL RDW (11.5-14.5) % Plt Count (140-400) K/mcL MPV (9.4-12.4) fL Immature Gran % (0-4) % Seg Neutrophils % % Lymphocytes % % Monocytes % % Eosinophils % % Basophils % % Neutrophils # (1.6-8.9) K/mcL Lymphocytes # (0.6-4.6) K/mcL Monocytes # (0.0-1.3) K/mcL Eosinophils # (0.0-0.6) K/mcL Basophils # (0.0-0.2) K/mcL Sodium (136-145) mEq/L Potassium (3.5-5.1) mEq/L Chloride (98-107) mEq/L Carbon Dioxide (23-29) mEq/L BUN (8-23) mg/dL Creatinine (0.70-1.30) mg/dL Est GFR ( Amer) (> 60) Est GFR (Non-Af Amer) (> 60) BUN/Creatinine Ratio (6-26) Glucose (70-105) mg/dL Calculated Osmolality (280-300) Lactic Acid (0.5-2.2) mmol/L Calcium (8.6-10.3) mg/dL Venous Ioniz Calcium (1.15-1.35) mmol/L Phosphorus (2.7-4.5) mg/dL Magnesium (1.6-2.6) mg/dL Total Bilirubin (0.3-1.0) mg/dL AST (13-39) Units/L ALT (7-52) Units/L Alkaline Phosphatase (34-104) Units/L Troponin I (< 0.04) ng/mL B-Natriuretic Peptide (Less than 100) pg/mL Serum Total Protein (6.4-8.9) g/dL Albumin (3.5-5.7) g/dL Globulin (2.4-3.5) g/dL Albumin/Globulin Ratio (1.1-2.2) TSH (0.340-5.600) mcIU/mL Urine Color Dark Yellow (Yellow) Urine Clarity Cloudy A (Clear) Urine pH 5.0 (5.0-8.0) pH Units Ur Specific [place] > 1.030 H (1.010-1.025) Urine Protein 100 H (Neg-Trace) mg/dL Urine Glucose (UA) Normal (Normal) mg/dL Urine Ketones Trace H (Negative) mg/dL Urine Blood Negative (Negative) Urine Nitrite Negative (Negative) Urine Bilirubin Small H (Negative) Urine Urobilinogen Normal (Normal) mg/dL Ur Leukocyte Esterase Small H (Negative) Urine Microscopic RBC 0-3 (0-3) per hpf Urine Microscopic WBC 5-15 H (0-3) per hpf Ur Squamous Epith Cells Many H (None-Few) per lpf Urine Bacteria None Seen (None-Few) per hpf Hyaline Casts Few (None-Few) per lpf Ur Culture Indicated? NO. A (NO) Critical Care Time Critical Care Time: Yes Total Critical Care Time: 35 Attestation: Critical care performed: Time is exclusive of separately billable procedures. Time includes: direct patient care, patient reassessment, coordination of patient care, interpretation of data (laboratory data, radiology data, and respiratory data), review of patient's medical records, medical consultation and documentation of patient care. Procedures included in critical care time: Procedures excluded from critical care time: Attestation Statement - Attestation Attestation: I examined this patient and my medical decision-making was reviewed with the Resident Physician. I agree with the documented findings, disposition and treatment plan as described except to the extent set forth below. Patient presents to the ED with chief complaint of cough fever and not feeling well for 3 days. Got worse today. Short of breath. No history of COPD or emphysema. On examination he is in no acute distress. Pleasant and conversant. He does have faint end expiratory wheezes in his lung bases. Plan. Patient is febrile. Septic workup. No source was found, however seems most likely respiratory. Patient's given antibiotics. Septic workup was performed. He was admitted to medicine. Chest X-Ray 05/26/18 12:14 IMPRESSION: No radiographic evidence of acute cardiopulmonary process. D/ / Son Do MD / Son oD MD Interpreting Provider: Son Do MD Chest CTA 05/26/18 13:19 IMPRESSION: No evidence of pulmonary embolism or acute pulmonary abnormality. Incidental 4 mm nodule in the right upper lobe. RECOMMENDATIONS: Fleischner Society guidelines for follow-up and management of incidentally detected pulmonary nodules: Single Solid Nodule: Nodule size less than 6 mm In a low-risk patient, no routine follow-up. In a high-risk patient, optional CT at 12 months. Nodule size equals 6-8 mm In a low-risk patient, CT at 6-12 months, then consider CT at 18-24 months. In a high-risk patient, CT at 6-12 months, then CT at 18-24 months. Nodule size greater than 8 mm In a low-risk patient, consider CT at 3 months, PET/CT, or tissue sampling. In a high-risk patient, consider CT at 3 months, PET/CT, or tissue sampling. Multiple Solid Nodules: Nodule size less than 6 mm In a low-risk patient, no routine follow-up. In a high-risk patient, optional CT at 12 months. Nodule size equals 6-8 mm In a low-risk patient, CT at 3-6 months, then consider CT at 18-24 months. In a high-risk patient, CT at 3-6 months, then CT at 18-24 months. Nodule size greater than 8 mm In a low-risk patient, CT at 3-6 months, then consider CT at 18-24 months. In a high-risk patient, CT at 3-6 months, then CT at 18-24 months. - Low risk patients include individuals with minimal or absent history of smoking and other known risk factors. - High risk patients include individuals with a history or smoking or known risk factors. Radiology 2017 http://pubs.rsna.org/doi/full/10.1148/radiol.[email or web address] D/ / 05/26/2018 14:19:14 Antonia Rosa MD / pat Interpreting Provider: Antonia Rosa MD
--- NOTE | 2018-05-26 12:30 | Emergency Department Note ---
Disposition Clinical Impression: Cough, Fever, Peripheral edema Disposition: Admitted As Inpatient Condition: Fair General Adult HPI - General Chief complaint: ED Weakness Stated complaint: Fever,vomiting,weakness Time Seen by Provider: 05/26/18 11:54 Source: patient, family Limitations: no limitations - History of Present Illness HPI Narrative: Patient is a 82 year old male with PMH HTN, atrial fibrillation on Xarelto, diabetes type 2 presents with 2 day history of cough productive of clear sputum and fevers Tmax 102.4. Patient reports that his symptoms started and have been worsening since Tuesday and today he developed shortness of breath while ambulating around his house which made his decide to come to the ER. On Tuesday he also states that he was nauseous with one episode of nonbloody emesis, pt currently denies nausea. Patient has been taking Tylenol [id number] for fever. Patient denies chest pain, abdominal pain, diarrhea, dark tarry stools, urinary symptoms. Pain Scale: 0 - Related Data Home Medications Medication Instructions Recorded Confirmed RX: Lovastatin 40 mg PO DAILY 02/22/17 05/26/18 RX: Rivaroxaban [Xarelto] 15 mg PO DAILY 02/22/17 05/26/18 RX: Saxagliptin HCl [Onglyza] 5 mg PO DAILY 02/22/17 05/26/18 RX: Sotalol HCl [Betapace] 120 mg PO BID 02/22/17 05/26/18 RX: Multivitamin [One Daily 1 tab PO DAILY 04/11/17 05/26/18 Essential] RX: Magnesium Oxide [Magnesium] 400 mg PO DAILY 03/06/18 05/26/18 RX: Psyllium Husk [Metamucil] 1.04 gm PO DAILY 05/26/18 05/26/18 Previous Rx's Medication Instructions Recorded RX: HYDROcodone/Acet 10/325 mg 1 tab PO Q6H PRN #28 tablet 04/10/17 [[place] 10-325 mg] RX: Cefdinir [Omnicef] 300 mg PO BID 3 Days #6 capsule 05/27/18 Allergies Allergy/AdvReac Type Severity Reaction Status Date / Time No Known Allergies Allergy Verified 05/26/18 13:32 Constitutional: Reports: fever, chills Eyes: Denies: eye pain, vision change ENT ED: Denies: ear pain, throat pain, congestion Cardiovascular: Denies: chest pain, palpitations, syncope Respiratory: Reports: cough, dyspnea, wheezes. Denies: hemoptysis Gastrointestinal: Denies: abdominal pain, nausea, vomiting, diarrhea, melena Genitourinary: Denies: dysuria, hematuria Musculoskeletal: Denies: back pain, neck pain Integumentary: Denies: rash, abrasion Neurological: Denies: headache, weakness Past Medical History - Past Medical History Medical history: Reports: atrial fibrillation, cancer, diabetes, hypertension, other Surgical history: Reports: cholecystectomy, herniorrhaphy Psychiatric history: Reports: no psych history - Social History Smoking Status: Never smoker Smokeless Tobacco Status: No Alcohol use: Reports: none Drug use: Reports: none Physical Exam - General Limitations: no limitations General appearance: alert, in no apparent distress - Head Head exam: atraumatic, normocephalic, normal inspection - Eye Eye exam: Present: normal appearance, PERRL, EOMI - ENT ENT exam: normal exam, normal oropharynx, mucous membranes dry - Neck Neck exam: Present: normal inspection, full ROM. Absent: tenderness - Chest Chest inspection: Present: normal inspection, symmetric chest wall rise - Expanded Respiratory Exam Location: rales: Left, Lower, Right - Cardiovascular Cardiovascular exam: Present: regular rate, normal rhythm, normal heart sounds - Abdominal Exam Abdominal exam: Present: soft, Non-Tender. Absent: tenderness, distention, guarding, rebound, rigidity - Extremities Exam Extremities exam: Present: normal inspection, full ROM, normal capillary refill. Absent: tenderness, pedal edema - Back Exam Back exam: Present: normal inspection, full ROM. Absent: tenderness, CVA tenderness (R), CVA tenderness (L) - Neurological Exam Neurological exam: Present: alert, oriented X3 - Psychiatric Psychiatric exam: Present: normal affect, normal mood - Skin Skin exam: Present: warm, dry, intact, normal color Course Vital Signs Temperature 101.6 F H 05/26/18 11:50 Pulse Rate 98 05/26/18 11:50 Respiratory Rate 24 05/26/18 11:50 Blood Pressure 134/62 05/26/18 11:50 O2 Sat by Pulse Oximetry 90 05/26/18 11:50 Temperature 103 F H 05/26/18 12:00 Pulse Rate 98 05/26/18 12:00 Respiratory Rate 24 05/26/18 12:00 Blood Pressure 134/62 05/26/18 12:00 O2 Sat by Pulse Oximetry 90 05/26/18 12:00 Oxygen Delivery Oxygen Delivery Room Air Medical Decision Making - Lab Data Result diagrams: 05/27/18 14:01 05/27/18 04:19
[2018-05-26 12:36] LABS: Basophils % 0.2 %; Eosinophils % 0.2 %; Hematocrit 32.2 % (37.5-50.1); Hemoglobin 10.6 g/dL (12.9-16.9); Immature Granulocytes % 0.2 % (0-4); Lymphocytes # 0.9 K/mcL (0.6-4.6); Lymphocytes % 14.6 %; Mean Corpuscular HGB Conc 32.9 g/dL (31.6-35.5); Mean Corpuscular Hemoglobin 29.9 pg (28.0-33.3); Mean Platelet Volume 9.8 fL (9.4-12.4); Monocytes # 0.8 K/mcL (0.0-1.3); Monocytes % 11.8 %; Neutrophils # 4.6 K/mcL (1.6-8.9); Platelet Count 224 K/mcL (140-400); Red Blood Count 3.54 M/mcL (4.19-5.50); Red Cell Distribution Width 13.8 % (11.5-14.5)
--- NOTE | 2018-05-26 12:36 | Emergency Department Note ---
Disposition Clinical Impression: Cough, Peripheral edema Fever Qualifiers: Fever type: unspecified Qualified Code(s): R50.9 - Fever, unspecified Disposition: Admitted As Inpatient Condition: Fair Weakness HPI - General Chief complaint: ED Weakness Stated complaint: Fever,vomiting,weakness Time Seen by Provider: 05/26/18 11:54 Source: patient, family Limitations: no limitations - History of Present Illness HPI Narrative: I have personally seen and evaluated the patient along with the Medical Student. I have reviewed and confirmed the history of present illness, review of systems, family, medical, and surgical history and agree with the documentation except as documented below. HPI/ROS: Briefly, presenting with a 48-hour history of fever and productive cough as well as shortness of breath. Has a history of A. fib and is on Xarelto. States that he has been progressively more short of breath with productive cough. Has been treating fever home, Tylenol. Feels very rundown and tired. Denying any chest pain. Physical exam: CONSTITUTIONAL: [well appearing in no acute distress] SKIN: [Warm, dry, and intact without rash] EYES: [extraocular movements are grossly intact, clear conjunctiva] HENT: [Normocephalic, atraumatic, moist mucus membranes] NECK: [no obvious swelling, normal range of motion] PULMONARY: [normal chest rise and fall, no respiratory distress or stridor, trace Rales bilateral bases, and decreased breath sounds throughout CARDIOVASCULAR: [regular rate, distal extremities are warm and well perfused, 1+ pitting edema on the right side and 3+ pitting edema on the left, but does have a history of lymphedema, status post partial colectomy for colon cancer several years ago] GASTROINSTESTINAL: [nondistended, non-tender] GENITOURINARY: [deferred] NEUROLOGIC: [normal speech, moves all extremities] MUSCULOSKELETAL: [no gross deformities, atraumatic] PSYCHIATRIC: [normal mood and affect] Pain Scale: 0 - Related Data Home Medications Medication Instructions Recorded Confirmed Lovastatin 40 mg PO DAILY 02/22/17 05/26/18 Metformin HCl [Glucophage] 1,000 mg PO BID 02/22/17 05/26/18 Rivaroxaban [Xarelto] 15 mg PO DAILY 02/22/17 05/26/18 Saxagliptin HCl [Onglyza] 5 mg PO DAILY 02/22/17 05/26/18 Sotalol HCl [Betapace] 120 mg PO BID 02/22/17 05/26/18 Multivitamin [One Daily Essential] 1 tab PO DAILY 04/11/17 05/26/18 Magnesium Oxide [Magnesium] 400 mg PO DAILY 03/06/18 05/26/18 Psyllium Husk [Metamucil] 1.04 gm PO DAILY 05/26/18 05/26/18 Previous Rx's Medication Instructions Recorded HYDROcodone/Acet 10/325 mg [[place] 1 tab PO Q6H PRN #28 tablet 04/10/17 10-325 mg] Lisinopril [Zestril] 20 mg PO DAILY #30 tablet 02/04/18 Allergies Allergy/AdvReac Type Severity Reaction Status Date / Time No Known Allergies Allergy Verified 05/26/18 13:32 Constitutional: Reports: fever, chills Eyes: Denies: eye pain, vision change ENT ED: Denies: ear pain, throat pain, congestion Cardiovascular: Denies: chest pain, palpitations, syncope Respiratory: Reports: cough, dyspnea, wheezes. Denies: hemoptysis Gastrointestinal: Denies: abdominal pain, nausea, vomiting, diarrhea, melena Genitourinary: Denies: dysuria, hematuria Musculoskeletal: Denies: back pain, neck pain Integumentary: Denies: rash, abrasion Neurological: Denies: headache, weakness Past Medical History - Past Medical History Medical history: Reports: atrial fibrillation, cancer, diabetes, hypertension, other Surgical history: Reports: cholecystectomy, herniorrhaphy Psychiatric history: Reports: no psych history - Social History Smoking Status: Never smoker Smokeless Tobacco Status: No Alcohol use: Reports: none Drug use: Reports: none Physical Exam - General Limitations: no limitations General appearance: alert, in no apparent distress Course Course Narrative: Patient presenting with fever and hypoxia in the setting of likely pneumonia. Patient also clinically does seem volume overloaded. We will start rehydration with 1 L of fluids and check labs including lactic. Disposition pending, but patient will likely need admission - Reevaluation(s) Reevaluation #1: Patient's chest x-ray did not show pneumonia. CTA of the chest, did not show a PE or pneumonia. His fever is down. No real clear source. We will treat him as pneumonia as clinically I think he has pneumonia with a productive cough, shortness of breath and fever. Patient accepted the hospitalist service. Patient stable. Vital Signs Temperature 101.6 F H 05/26/18 11:50 Pulse Rate 98 05/26/18 11:50 Respiratory Rate 24 05/26/18 11:50 Blood Pressure 134/62 05/26/18 11:50 O2 Sat by Pulse Oximetry 90 05/26/18 11:50 Temperature 98.4 F 05/26/18 14:06 Pulse Rate 75 05/26/18 15:22 Respiratory Rate 18 05/26/18 15:22 Blood Pressure 134/62 05/26/18 12:00 O2 Sat by Pulse Oximetry 99 05/26/18 15:22 Oxygen Delivery Oxygen Delivery Nasal Cannula Weakness - Lab Data Result diagrams: 05/26/18 12:14 05/26/18 12:14 Lab Results 05/26/18 05/26/18 05/26/18 Range/Units 12:04 12:14 12:14 WBC 6.4 (4.3-11.1) K/mcL RBC 3.54 L (4.19-5.50) M/mcL Hgb 10.6 L (12.9-16.9) g/dL Hct 32.2 L (37.5-50.1) % MCV 91.0 (83.0-100.0) fL MCH 29.9 (28.0-33.3) pg MCHC 32.9 (31.6-35.5) g/dL RDW 13.8 (11.5-14.5) % Plt Count 224 (140-400) K/mcL MPV 9.8 (9.4-12.4) fL Immature Gran % 0.2 (0-4) % Seg Neutrophils % 73.0 % Lymphocytes % 14.6 % Monocytes % 11.8 % Eosinophils % 0.2 % Basophils % 0.2 % Neutrophils # 4.6 (1.6-8.9) K/mcL Lymphocytes # 0.9 (0.6-4.6) K/mcL Monocytes # 0.8 (0.0-1.3) K/mcL Eosinophils # 0.0 (0.0-0.6) K/mcL Basophils # 0.0 (0.0-0.2) K/mcL Sodium 131 L (136-145) mEq/L Potassium 4.1 (3.5-5.1) mEq/L Chloride 96 L (98-107) mEq/L Carbon Dioxide 27 (23-29) mEq/L BUN 21 (8-23) mg/dL Creatinine 1.19 (0.70-1.30) mg/dL Est GFR ( Amer) > 60 (> 60) Est GFR (Non-Af Amer) 59 L (> 60) BUN/Creatinine Ratio 18 (6-26) Glucose 233 H (70-105) mg/dL Calculated Osmolality 282 (280-300) Lactic Acid 1.3 (0.5-2.2) mmol/L Calcium 9.0 (8.6-10.3) mg/dL Venous Ioniz Calcium (1.15-1.35) mmol/L Phosphorus 2.9 (2.7-4.5) mg/dL Magnesium 1.7 (1.6-2.6) mg/dL Total Bilirubin 0.8 (0.3-1.0) mg/dL AST 27 (13-39) Units/L ALT 22 (7-52) Units/L Alkaline Phosphatase 108 H (34-104) Units/L Troponin I < 0.03 (< 0.04) ng/mL B-Natriuretic Peptide (Less than 100) pg/mL Serum Total Protein 7.0 (6.4-8.9) g/dL Albumin 3.9 (3.5-5.7) g/dL Globulin 3.1 (2.4-3.5) g/dL Albumin/Globulin Ratio 1.3 (1.1-2.2) TSH 5.340 (0.340-5.600) mcIU/mL Urine Color (Yellow) Urine Clarity (Clear) Urine pH (5.0-8.0) pH Units Ur Specific [place] (1.010-1.025) Urine Protein (Neg-Trace) mg/dL Urine Glucose (UA) (Normal) mg/dL Urine Ketones (Negative) mg/dL Urine Blood (Negative) Urine Nitrite (Negative) Urine Bilirubin (Negative) Urine Urobilinogen (Normal) mg/dL Ur Leukocyte Esterase (Negative) Urine Microscopic RBC (0-3) per hpf Urine Microscopic WBC (0-3) per hpf Ur Squamous Epith Cells (None-Few) per lpf Urine Bacteria (None-Few) per hpf Hyaline Casts (None-Few) per lpf Ur Culture Indicated? (NO) 05/26/18 05/26/18 05/26/18 Range/Units 12:35 12:35 12:43 WBC (4.3-11.1) K/mcL RBC (4.19-5.50) M/mcL Hgb (12.9-16.9) g/dL Hct (37.5-50.1) % MCV (83.0-100.0) fL MCH (28.0-33.3) pg MCHC (31.6-35.5) g/dL RDW (11.5-14.5) % Plt Count (140-400) K/mcL MPV (9.4-12.4) fL Immature Gran % (0-4) % Seg Neutrophils % % Lymphocytes % % Monocytes % % Eosinophils % % Basophils % % Neutrophils # (1.6-8.9) K/mcL Lymphocytes # (0.6-4.6) K/mcL Monocytes # (0.0-1.3) K/mcL Eosinophils # (0.0-0.6) K/mcL Basophils # (0.0-0.2) K/mcL Sodium (136-145) mEq/L Potassium (3.5-5.1) mEq/L Chloride (98-107) mEq/L Carbon Dioxide (23-29) mEq/L BUN (8-23) mg/dL Creatinine (0.70-1.30) mg/dL Est GFR ( Amer) (> 60) Est GFR (Non-Af Amer) (> 60) BUN/Creatinine Ratio (6-26) Glucose (70-105) mg/dL Calculated Osmolality (280-300) Lactic Acid (0.5-2.2) mmol/L Calcium (8.6-10.3) mg/dL Venous Ioniz Calcium 1.08 L TNP (1.15-1.35) mmol/L Phosphorus (2.7-4.5) mg/dL Magnesium (1.6-2.6) mg/dL Total Bilirubin (0.3-1.0) mg/dL AST (13-39) Units/L ALT (7-52) Units/L Alkaline Phosphatase (34-104) Units/L Troponin I (< 0.04) ng/mL B-Natriuretic Peptide 496 H (Less than 100) pg/mL Serum Total Protein (6.4-8.9) g/dL Albumin (3.5-5.7) g/dL Globulin (2.4-3.5) g/dL Albumin/Globulin Ratio (1.1-2.2) TSH (0.340-5.600) mcIU/mL Urine Color (Yellow) Urine Clarity (Clear) Urine pH (5.0-8.0) pH Units Ur Specific [place] (1.010-1.025) Urine Protein (Neg-Trace) mg/dL Urine Glucose (UA) (Normal) mg/dL Urine Ketones (Negative) mg/dL Urine Blood (Negative) Urine Nitrite (Negative) Urine Bilirubin (Negative) Urine Urobilinogen (Normal) mg/dL Ur Leukocyte Esterase (Negative) Urine Microscopic RBC (0-3) per hpf Urine Microscopic WBC (0-3) per hpf Ur Squamous Epith Cells (None-Few) per lpf Urine Bacteria (None-Few) per hpf Hyaline Casts (None-Few) per lpf Ur Culture Indicated? (NO) 05/26/18 Range/Units 14:15 WBC (4.3-11.1) K/mcL RBC (4.19-5.50) M/mcL Hgb (12.9-16.9) g/dL Hct (37.5-50.1) % MCV (83.0-100.0) fL MCH (28.0-33.3) pg MCHC (31.6-35.5) g/dL RDW (11.5-14.5) % Plt Count (140-400) K/mcL MPV (9.4-12.4) fL Immature Gran % (0-4) % Seg Neutrophils % % Lymphocytes % % Monocytes % % Eosinophils % % Basophils % % Neutrophils # (1.6-8.9) K/mcL Lymphocytes # (0.6-4.6) K/mcL Monocytes # (0.0-1.3) K/mcL Eosinophils # (0.0-0.6) K/mcL Basophils # (0.0-0.2) K/mcL Sodium (136-145) mEq/L Potassium (3.5-5.1) mEq/L Chloride (98-107) mEq/L Carbon Dioxide (23-29) mEq/L BUN (8-23) mg/dL Creatinine (0.70-1.30) mg/dL Est GFR ( Amer) (> 60) Est GFR (Non-Af Amer) (> 60) BUN/Creatinine Ratio (6-26) Glucose (70-105) mg/dL Calculated Osmolality (280-300) Lactic Acid (0.5-2.2) mmol/L Calcium (8.6-10.3) mg/dL Venous Ioniz Calcium (1.15-1.35) mmol/L Phosphorus (2.7-4.5) mg/dL Magnesium (1.6-2.6) mg/dL Total Bilirubin (0.3-1.0) mg/dL AST (13-39) Units/L ALT (7-52) Units/L Alkaline Phosphatase (34-104) Units/L Troponin I (< 0.04) ng/mL B-Natriuretic Peptide (Less than 100) pg/mL Serum Total Protein (6.4-8.9) g/dL Albumin (3.5-5.7) g/dL Globulin (2.4-3.5) g/dL Albumin/Globulin Ratio (1.1-2.2) TSH (0.340-5.600) mcIU/mL Urine Color Dark Yellow (Yellow) Urine Clarity Cloudy A (Clear) Urine pH 5.0 (5.0-8.0) pH Units Ur Specific [place] > 1.030 H (1.010-1.025) Urine Protein 100 H (Neg-Trace) mg/dL Urine Glucose (UA) Normal (Normal) mg/dL Urine Ketones Trace H (Negative) mg/dL Urine Blood Negative (Negative) Urine Nitrite Negative (Negative) Urine Bilirubin Small H (Negative) Urine Urobilinogen Normal (Normal) mg/dL Ur Leukocyte Esterase Small H (Negative) Urine Microscopic RBC 0-3 (0-3) per hpf Urine Microscopic WBC 5-15 H (0-3) per hpf Ur Squamous Epith Cells Many H (None-Few) per lpf Urine Bacteria None Seen (None-Few) per hpf Hyaline Casts Few (None-Few) per lpf Ur Culture Indicated? NO. A (NO)
[2018-05-26 12:38] LABS: VBG Ionized Calcium 1.08 mmol/L (1.15-1.35)
[2018-05-26 13:04] LABS: Alanine Aminotransferase 22 Units/L (7-52); Albumin 3.9 g/dL (3.5-5.7); Albumin/Globulin Ratio 1.3 (1.1-2.2); Alkaline Phosphatase 108 Units/L (34-104); Aspartate Amino Transferase 27 Units/L (13-39); BUN/Creatinine Ratio 18 (6-26); Bilirubin,Total 0.8 mg/dL (0.3-1.0); Blood Urea Nitrogen 21 mg/dL (8-23); Carbon Dioxide 27 mEq/L (23-29); Chloride 96 mEq/L (98-107); Globulin 3.1 g/dL (2.4-3.5); Glucose 233 mg/dL (70-105); Magnesium 1.7 mg/dL (1.6-2.6); Osmolality,Calculated 282 (280-300); Phosphorous 2.9 mg/dL (2.7-4.5); Potassium 4.1 mEq/L (3.5-5.1); Sodium 131 mEq/L (136-145); Troponin I < 0.03 ng/mL (< 0.04); eGFR For Non-African Americans 59 (> 60)
--- NOTE | 2018-05-26 13:08 | Electrocardiograph Report ---
Test Date: 2018-05-26 Pat Name: Jesus Quinn Department: [id number] Room: Gender: M [employer] Economist: : 1935 Requested By: Chandler Rodriguez Order Number: [id number] Reading MD: Main Montgomery Measurements Intervals [place] Rate: 86 P: 75 MA: 233 QRS: 77 QRSD: 84 T: 67 QT: 378 QTc: 453 Interpretive Statements Sinus rhythm Prolonged MA interval Left atrial enlargement Electronically Signed On 05-26-2018 13:06:43 EST by Main Montgomery
[2018-05-26] MEDS ORDERED: Isovue-370 500 ML INFUS..BTL IV ONE (13:19)
[2018-05-26] MEDS ORDERED: Azithromycin 500 MG in D5% in Water 250 ML IVPB ONE (14:24)
[2018-05-26] MEDS ORDERED: cefTRIAXone 1,000 MG in Water for inj. (sterile) 20 ML 10 ML IVP ONE (14:24)
[2018-05-26 14:32] LABS: Bilirubin,Urine Small (Negative); Blood,Urine Negative (Negative); Clarity,Urine Cloudy (Clear); Color,Urine Dark Yellow (Yellow); Glucose,Urine (UA) Normal (Normal); Ketones,Urine Trace mg/dL (Negative); Leukocyte Esterase,Urine Small (Negative); Nitrite,Urine Negative (Negative); Protein,Urine 100 mg/dL (Neg-Trace); Specific Gravity,Urine > 1.030 (1.010-1.025); Urobilinogen,Urine Normal (Normal)
[2018-05-26 14:35] LABS: Bacteria,Urine None Seen per hpf (None-Few); Hyaline Casts,Urine Few per lpf (None-Few); RBC,Urine 0-3 per hpf (0-3); Squamous Epithelial Cell,Urine Many per lpf (None-Few)
[2018-05-26] MEDS ORDERED: *HR* HYDROcodone/Acet 10/325 mg TABLET PO PRN (16:03)
[2018-05-26] MEDS ORDERED: *HR* Dextrose 50 % in Water (Syg) 50 ML SYRINGE IVP PRN (16:26)
[2018-05-26] MEDS ORDERED: D5% in Water 1,000 ML IVC PRN (16:26)
[2018-05-26] MEDS ORDERED: Dextrose Gel 15 GM/37.5 ML TUBE PO PRN ×2 (16:26)
--- NOTE | 2018-05-26 16:27 | Internal Med History&Physical ---
Date of Encounter: 05/26/18 Time of Encounter: 16:25 Internal Medicine - H&P: HPI Chief complaint: fever and cough Admitted From: Home Plans for Post Hospital Care: Home History of present illness: Mr. Quinn is a 82 year old male with past medical history of hypertension, atrial fibrillation on Xarelto, diabetes, diastolic CHF came in with complain of fever and cough for 3 days. Patient mention that he first noted that he was subjectively febrile about 3 days ago. Later started having cough with productive sputum which was clear and scant. Patient measured fever of 104 max at home. Patient came to ER with complaint of shortness of breath with has been worsening or past 2 days. Associated with some nausea. Denies any nighttime awakening from shortness of breath. Denies any lower extremity swelling except on left due to lymphedema after his colon surgery for cancer. Denies any chest pain or palpitation. He has been compliant with all of his medication. Does not know whether he has heart failure however patient had echocardiogram on his last admission which showed moderate diastolic dysfunction. His hydrochlorothiazide was held due to hyponatremia. Patient recently had right total knee replacement surgery in February. Patient had mild right knee pain with ambulation and was told it would take longer for it to heal because of his diabetes and that is why he has pain. Currently able to ambulate with minimal pain. Denies any pain at rest while not weightbearing. No changes on overlying skin. Denies any urinary or bowel complaints. Denies any lightheadedness or syncopal episodes. Denies any sick contacts or travel. He takes flu shots every year including this chair. Patient received ceftriaxone and azithromycin in ER. He also received 1 L of normal saline. EKG in ER was nonischemic. Patient had a CTA which did not show any PE or an infiltrate. Showed incidental lung nodule a 4 mm on right upper lobe. On interview patient with minimal respiratory distress which had improved somewhat according to him. Denies any chest pain, palpitation or lightheadedness. I will mentioned negative review of systems confirmed. Past Med Surg Social Fam HX - Past Medical History Attestation: Yes The following information was validated with the patient. Medical history: atrial fibrillation, cancer, diabetes, hypertension, other Additional medical history: colon ca, venous insufficiency, lymphedema, MELISSA Psychiatric history: no psych history - Past Surgical History Surgical History: cholecystectomy, herniorrhaphy Additional surgical history: left wrist, back surgery, colon cancer surgery, left tkr. Rt TKR - Social History Smoking Status: Former smoker (>15bowel yrs ago) Smokeless Tobacco Status: No Alcohol use: none Drug use: none - Family History Mother Living Status: Hx Family Cardiac Disorders: Yes (?Heart problems) Hx Family Endocrine Disorder: Yes Father History Unknown: Yes Internal Medicine - H&P: Meds Lovastatin 40 mg PO DAILY 02/22/17 [History] Metformin HCl [Glucophage] 1,000 mg PO BID 02/22/17 [History] Rivaroxaban [Xarelto] 15 mg PO DAILY 02/22/17 [History] Saxagliptin HCl [Onglyza] 5 mg PO DAILY 02/22/17 [History] Sotalol HCl [Betapace] 120 mg PO BID 02/22/17 [History] HYDROcodone/Acet 10/325 mg [[place] 10-325 mg] 1 tab PO Q6H PRN #28 tablet 04/10/17 [Rx] Multivitamin [One Daily Essential] 1 tab PO DAILY 04/11/17 [History] Lisinopril [Zestril] 20 mg PO DAILY #30 tablet 02/04/18 [Rx] Magnesium Oxide [Magnesium] 400 mg PO DAILY 03/06/18 [History] Psyllium Husk [Metamucil] 1.04 gm PO DAILY 05/26/18 [History] Allergy/AdvReac Type Severity Reaction Status Date / Time No Known Allergies Allergy Verified 05/26/18 13:32 All Systems PM: A 10-system review of systems was performed and is negative for pertinent findings except as documented above in the HPI. - Constitutional Vitals: Temp Pulse Resp BP Pulse Ox 98.4 F 75 18 134/62 99 05/26/18 14:06 05/26/18 15:22 05/26/18 15:22 05/26/18 12:00 05/26/18 15:22 Exam: Constitutional: Vitals as noted. Conversant. No Apparent Distress. Well groomed. Eyes : Sclera white, conjunctiva clear, no lid lag, PEARLA. ENT : Grossly normal hearing. Oropharyngeal exam unremarkable. Moist mucus membranes. JVD difficult to assess due to habitus but likely present, no cervical lymphadenopathy. no thyromegaly or mass. Respiratory : Crackles present till mid-lung filed bilaterally, no rhonchi or wheezes. RR 24. 2L NS at 99% sat Cardiovascular : RRR, +S1, +S2. no murmur, gallop, rubs. No chest wall tenderness GI/Abdominal : Soft, Non-tender, Non-distended, normal bowel sounds, soft, no peritoneal signs. no orgenomegaly or mass appreciated. no hernia. Musculoskeletal: no cyanosis. warm extremities. no calf tenderness. b/l scars of total knee replacement. Mild tenderness on Medial aspect of the Rt knee. Pedal edema present Lt >Rt. Neurological: AO X3, CN II-XII grossly intact, grossly normal motor and sensory exam. Skin: No skin rash, lesions or ulcers noted. Pych: Good insight and judgement. Intact memory. AOx3. Internal Med - H&P Results - Labs CBC & Chem 7: 05/26/18 12:14 05/26/18 12:14 Labs: Short CBC 05/26/18 Range/Units 12:14 WBC 6.4 (4.3-11.1) K/mcL Hgb 10.6 L (12.9-16.9) g/dL Hct 32.2 L (37.5-50.1) % Plt Count 224 (140-400) K/mcL Neutrophils # 4.6 (1.6-8.9) K/mcL BMP 05/26/18 12:14 Sodium 131 L Potassium 4.1 Chloride 96 L Carbon Dioxide 27 BUN 21 Creatinine 1.19 Glucose 233 H Calcium 9.0 Cardiac Enzymes 05/26/18 Range/Units 12:14 Troponin I < 0.03 (< 0.04) ng/mL Liver Function 05/26/18 Range/Units 12:14 Total Bilirubin 0.8 (0.3-1.0) mg/dL AST 27 (13-39) Units/L ALT 22 (7-52) Units/L Alkaline Phosphatase 108 H (34-104) Units/L Albumin 3.9 (3.5-5.7) g/dL Urine 05/26/18 Range/Units 14:15 Urine Color Dark Yellow (Yellow) Urine Clarity Cloudy A (Clear) Urine pH 5.0 (5.0-8.0) pH Units Ur Specific [place] > 1.030 H (1.010-1.025) Urine Protein 100 H (Neg-Trace) mg/dL Urine Glucose (UA) Normal (Normal) mg/dL - EKG Data -: EKG Interpreted by Myself Rate: normal - Impressions ITS Impressions Chest X-Ray 05/26/18 12:14 IMPRESSION: No radiographic evidence of acute cardiopulmonary process. D/ / Son Do MD / Son Do MD Interpreting Provider: Son Do MD Chest CTA 05/26/18 13:19 IMPRESSION: No evidence of pulmonary embolism or acute pulmonary abnormality. Incidental 4 mm nodule in the right upper lobe. RECOMMENDATIONS: Fleischner Society guidelines for follow-up and management of incidentally detected pulmonary nodules: Single Solid Nodule: Nodule size less than 6 mm In a low-risk patient, no routine follow-up. In a high-risk patient, optional CT at 12 months. Nodule size equals 6-8 mm In a low-risk patient, CT at 6-12 months, then consider CT at 18-24 months. In a high-risk patient, CT at 6-12 months, then CT at 18-24 months. Nodule size greater than 8 mm In a low-risk patient, consider CT at 3 months, PET/CT, or tissue sampling. In a high-risk patient, consider CT at 3 months, PET/CT, or tissue sampling. Multiple Solid Nodules: Nodule size less than 6 mm In a low-risk patient, no routine follow-up. In a high-risk patient, optional CT at 12 months. Nodule size equals 6-8 mm In a low-risk patient, CT at 3-6 months, then consider CT at 18-24 months. In a high-risk patient, CT at 3-6 months, then CT at 18-24 months. Nodule size greater than 8 mm In a low-risk patient, CT at 3-6 months, then consider CT at 18-24 months. In a high-risk patient, CT at 3-6 months, then CT at 18-24 months. - Low risk patients include individuals with minimal or absent history of smoking and other known risk factors. - High risk patients include individuals with a history or smoking or known risk factors. Radiology 2017 http://pubs.rsna.org/doi/full/10.1148/radiol.[email or web address] D/ / 05/26/2018 14:19:14 Antonia Rosa MD / pat Interpreting Provider: Antonia Rosa MD - Assessment and plan (1) Fever Current Visit: Yes Status: Acute Assessment and plan: - Unclear source. Could be viral or atypical bacterial pneumonia or bronchitis - UA poor sample. Denies any urinary complaints - CTA did not show any infiltrate. - Obtain respiratory infectious panel - Obtain sputum and blood culture - Continue ceftriaxone. Change azithromycin to doxycycline for atypical coverage given side effect of QT prolongation with sotalol. - Right knee surgery in February with history of diabetes. We will obtain orthopedic evaluation for possible septic arthritis. It appeared less likely as the source for his fevers. Qualifiers: Fever type: unspecified Qualified Code(s): R50.9 - Fever, unspecified (2) CHF exacerbation Current Visit: Yes Status: Acute Assessment and plan: - Elevated BNP and 400s as well as crackles bilaterally with bilateral lower extremity edema - Echo in 02/03/18 with moderate diastolic dysfunction and EF of 60-65 and moderate mitral stenosis. - EKG today with sinus rhythm, left atrial enlargement signs, prolonged UT interval, no signs of ischemia including T-wave inversions or ST segment depressions. First troponin negative follow-up second. If increasing we will obtain repeat TTE. - Likely explanation for his shortness of breath rather than pneumonia. - Not on any diuretics. Previously on HCTZ which was stopped due to hypona tremia. - We will start patient on Lasix 40 daily - Strict in and out and daily weights Qualifiers: Heart failure type: diastolic Qualified Code(s): I50.33 - Acute on chronic diastolic (congestive) heart failure (3) Cough Current Visit: Yes Status: Acute Assessment and plan: - As above (4) Peripheral edema Current Visit: Yes Status: Acute Assessment and plan: - Bilateral edema however left more than right - No calf tenderness bilaterally. Patient ambulatory - Had history of lymphedema on the left after colon cancer surgery - Likely explained from CHF (5) Status post total knee replacement, right Current Visit: No Status: Acute Assessment and plan: - Had right total knee replacement in February 2018 - Currently with mild tenderness on deep palpation medially. Has been having it since surgery. - We will obtain orthopedic evaluation given patient has diabetes and high grade fever for possible source. (6) DMII (diabetes mellitus, type 2) Current Visit: No Status: Chronic Assessment and plan: - Hold home oral hypoglycemics - Start patient on Levemir, sliding scale insulin and Accu-Cheks - Obtain HbA1c Qualifiers: Diabetes mellitus snf insulin use: without snf use Diabetes mellitus complication status: with unspecified complications Qualified Code(s): E11.8 - Type 2 diabetes mellitus with unspecified complications (7) HTN (hypertension) Current Visit: No Status: Chronic Assessment and plan: - Blood pressure stable - Continue home lisinopril Qualifiers: Hypertension type: essential hypertension Qualified Code(s): I10 - Essential (primary) hypertension (8) Obesity (BMI 30.0-34.9) Current Visit: No Status: Chronic Assessment and plan: - counseled on weight loss (9) Paroxysmal atrial fibrillation Current Visit: No Status: Chronic Assessment and plan: - Currently rhythm controlled with sotalol - Anticoagulated with xarelto. (10) Hyponatremia Current Visit: Yes Status: Acute Assessment and plan: - Likely pseudohyponatremia from elevated blood sugar - Monitor for now (11) Anemia Current Visit: Yes Status: Acute Assessment and plan: - At baseline - Possible from anemia of CKD. Iron deficiency also possible. - Monitor for now - Follow-up outpatient Qualifiers: Qualified Code(s): D64.9 - Anemia, unspecified (12) CKD (chronic kidney disease) stage 2, GFR 60-89 ml/min Current Visit: Yes Status: Acute Assessment and plan: - at baseline - Monitor while being diuresed. - Time Spent With Patient Total time spent is greater than 50% in coordination of care (as documented) at patient's floor/unit and/or counseling patient:
[2018-05-26] MEDS ORDERED: Furosemide 40 MG/4 ML VIAL IVP SCH (16:30)
--- NOTE | 2018-05-26 16:58 | Orthopedic Consult Note ---
Date of Encounter: 05/26/18 Time of Encounter: 16:57 Assessment and Plan (1) Status post total knee replacement, right Current Visit: No Status: Acute The diagnosis and treatment plan were discussed with the patient. I also discussed this case with Dr. Martin. Clinically his knee is unchanged over the past several days, with minimal pain, no increase in swelling and no erythema. Would not recommend any more invasive intervention for the knee at this time based on his clinical exam. Continue with antibiotics and supportive care for pneumonia. If knee becomes symptomatic will consider aspiration, otherwise follow up as scheduled with Dr Martin. History of Present Illness HPI: Mr. Quinn is a 82 year old male with past medical history of hypertension, atrial fibrillation, diabetes, diastolic CHF who is admitted for pneumonia after 3 days of shortness breath, productive cough, and fevers. He had a recent total knee arthroplasty done about 2 months ago on the right side by Dr Martin. Orthopedics was consulted due to the fevers and a recent knee surgery. He has not noticed a change in his symptoms in the knee, he has had some mild discomfort but this is been unchanged over the past week. No increase in swelling, no problems with the incision or wound breakdown, and no erythema over the knee. He is able to ambulate and range the knee without any increased discomfort. Past Med Surg Social Fam HX - Past Medical History Medical history: atrial fibrillation, cancer, diabetes, hypertension, other Additional medical history: colon ca, venous insufficiency, lymphedema, MELISSA Psychiatric history: no psych history - Past Surgical History Surgical History: cholecystectomy, herniorrhaphy Additional surgical history: left wrist, back surgery, colon cancer surgery, left tkr. Rt TKR - Social History Smoking Status: Former smoker (>15bowel yrs ago) Smokeless Tobacco Status: No Alcohol use: none Drug use: none - Family History Mother Living Status: Hx Family Cardiac Disorders: Yes (?Heart problems) Hx Family Endocrine Disorder: Yes Father History Unknown: Yes Medications and Allergies Lovastatin 40 mg PO DAILY 02/22/17 [History] Metformin HCl [Glucophage] 1,000 mg PO BID 02/22/17 [History] Rivaroxaban [Xarelto] 15 mg PO DAILY 02/22/17 [History] Saxagliptin HCl [Onglyza] 5 mg PO DAILY 02/22/17 [History] Sotalol HCl [Betapace] 120 mg PO BID 02/22/17 [History] HYDROcodone/Acet 10/325 mg [[place] 10-325 mg] 1 tab PO Q6H PRN #28 tablet 04/10/17 [Rx] Multivitamin [One Daily Essential] 1 tab PO DAILY 04/11/17 [History] Lisinopril [Zestril] 20 mg PO DAILY #30 tablet 02/04/18 [Rx] Magnesium Oxide [Magnesium] 400 mg PO DAILY 03/06/18 [History] Psyllium Husk [Metamucil] 1.04 gm PO DAILY 05/26/18 [History] Allergy/AdvReac Type Severity Reaction Status Date / Time No Known Allergies Allergy Verified 05/26/18 13:32 All Systems Reviewed: The remainder of the systems were reviewed and are negative except as noted in history of present illness Physical Exam - Constitutional Vitals: Temp Pulse Resp BP Pulse Ox 98.5 F 77 19 111/66 98 05/26/18 16:42 05/26/18 16:42 05/26/18 16:42 05/26/18 16:42 05/26/18 16:42 Exam: Consult Exam: Constitutional -Vitals reviewed -The patient is well developed and well nourished. -Mood is pleasant. -The patient is well groomed. Psychiatric -The patient is fully alert and oriented x 3. Respiratory: -On O2 without labored breathing Abdomen: -Soft abdomen -Non tender -Non distended: Left upper extremity: -No deformities. The overlying skin is intact. No obvious signs of acute trauma. -No tenderness to palpation throughout. -No significant pain with passive motion of the shoulder, elbow, wrist, and fingers within the limits of the bed. -Able to make an "OK" sign, cross the index and long fingers, and extend the thumb. -Sensation grossly intact to light touch throughout the median, radial, and ulnar distributions. -Radial pulse is present; Fingers have good capillary refill. Right upper extremity: -No deformities. The overlying skin is intact. No obvious signs of acute trauma. -No tenderness to palpation throughout. -No significant pain with passive motion of the shoulder, elbow, wrist, and fingers within the limits of the bed. -Able to make an "OK" sign, cross the index and long fingers, and extend the thumb. -Sensation grossly intact to light touch throughout the median, radial, and ulnar distributions. -Radial pulse is present; Fingers have good capillary refill. Left lower extremity: -No deformities. The overlying skin is intact. No obvious signs of acute trauma. -Incision healed, no surrounding erythema. -No tenderness to palpation throughout. -No pain with passive motion of the hip, knee, ankle, and toes within the limits of the bed. -Chronic lymphedema, no knee effusion. -Able to dorsiflex and plantarflex the ankle and toes. -Toes have good capillary refill. Right lower extremity: -No deformities. The overlying skin is intact. No obvious signs of acute trauma. -Incision healed, no surrounding erythema. -Mild tenderness to palpation medially. -No pain with passive motion of the hip, knee, ankle, and toes within the limits of the bed. -Trace knee effusion. -Able to dorsiflex and plantarflex the ankle and toes. -Toes have good capillary refill. Results - Labs Result Diagrams: 05/26/18 12:14 05/26/18 12:14 Labs: Abnormal lab results RBC 3.54 M/mcL (4.19-5.50) L 05/26/18 12:14 Hgb 10.6 g/dL (12.9-16.9) L 05/26/18 12:14 Hct 32.2 % (37.5-50.1) L 05/26/18 12:14 Sodium 131 mEq/L (136-145) L 05/26/18 12:14 Chloride 96 mEq/L (98-107) L 05/26/18 12:14 Est GFR (Non-Af Amer) 59 (> 60) L 05/26/18 12:14 Glucose 233 mg/dL (70-105) H 05/26/18 12:14 Alkaline Phosphatase 108 Units/L (34-104) H 05/26/18 12:14 B-Natriuretic Peptide 496 pg/mL (Less than 100) H 05/26/18 12:35 Urine Clarity Cloudy (Clear) A 05/26/18 14:15 Ur Specific [place] > 1.030 (1.010-1.025) H 05/26/18 14:15 Urine Protein 100 mg/dL (Neg-Trace) H 05/26/18 14:15 Urine Ketones Trace mg/dL (Negative) H 05/26/18 14:15 Urine Bilirubin Small (Negative) H 05/26/18 14:15 Ur Leukocyte Esterase Small (Negative) H 05/26/18 14:15 Urine Microscopic WBC 5-15 per hpf (0-3) H 05/26/18 14:15 Ur Squamous Epith Cells Many per lpf (None-Few) H 05/26/18 14:15 Ur Culture Indicated? NO. (NO) A 05/26/18 14:15 H & H 05/26/18 Range/Units 12:14 Hgb 10.6 L (12.9-16.9) g/dL Hct 32.2 L (37.5-50.1) % All other labs normal. Consult Discharge Plan - Plan Referrals: John Maravilla DO [Primary Care Provider] -
[2018-05-26] MEDS: Insulin LISPRO 300 UNITS/3 ML VIAL SQ SCH (18:21)
[2018-05-26] MEDS: Doxycycline 100 MG in 0.9 % Sodium Chloride Mini Bag 100 ML IVPB SCH (18:23)
[2018-05-26 20:51] LABS: Adenovirus Not Detected (Not Detect); Bordetella Pertussis Not Detected (Not Detect); Chlamydophila pneumoniae Not Detected (Not Detect); Coronavirus 229E Not Detected (Not Detect); Coronavirus HKU1 Not Detected (Not Detect); Coronavirus NL63 Not Detected (Not Detect); Coronavirus OC43 Not Detected (Not Detect); Human Metapneumovirus Not Detected (Not Detect); Human Rhinovirus/Enterovirus Not Detected (Not Detect); Influenza A Subtype 2009 H1 Not Detected (Not Detect); Influenza A Untypeable Not Detected (Not Detect); Influenza B Not Detected (Not Detect); Mycoplasma pneumoniae Not Detected (Not Detect); Parainfluenza Virus 1 Not Detected (Not Detect); Parainfluenza Virus 2 Not Detected (Not Detect); Parainfluenza Virus 3 Not Detected (Not Detect); Parainfluenza Virus 4 Not Detected (Not Detect); Respiratory Syncytial Virus Not Detected (Not Detect)
[2018-05-26] MEDS ORDERED: Insulin DETEMIR 100 UNIT/ML X5UNITS SQ SCH (21:00)
[2018-05-26] MEDS ORDERED: Albuterol Neb 7.5 MG, Ipratropium Neb 0.5 MG, Sodium Chloride for inhalation 9 ML IH ONE (22:14)
[2018-05-26] MEDS ORDERED: Benzonatate 100 MG CAPSULE PO PRN (22:15)
[2018-05-26] MEDS ORDERED: Acetaminophen 325 MG TABLET PO PRN (22:15)
[2018-05-26] MEDS ORDERED: Albuterol 2.5 MG/3 ML NEBULIZER IH ONE (22:30)
[2018-05-26] MEDS ORDERED: Ipratropium Neb 0.5 MG NEBULIZER IH ONE (22:30)
[2018-05-26] MEDS ORDERED: Sodium Chloride for inhalation 3 ML VIAL IH ONE (22:30)
[2018-05-26] MEDS ORDERED: Albuterol 2.5 MG/3 ML NEBULIZER ONE (22:50)
[2018-05-27 04:55] LABS: Basophils % 0.2 %; Eosinophils % 0.1 %; Hematocrit 26.9 % (37.5-50.1); Immature Granulocytes % 0.3 % (0-4); Lymphocytes # 1.3 K/mcL (0.6-4.6); Lymphocytes % 14.6 %; Mean Corpuscular HGB Conc 33.1 g/dL (31.6-35.5); Mean Corpuscular Hemoglobin 30.3 pg (28.0-33.3); Mean Corpuscular Volume 91.5 fL (83.0-100.0); Mean Platelet Volume 9.7 fL (9.4-12.4); Monocytes # 2.1 K/mcL (0.0-1.3); Monocytes % 23.3 %; Neutrophils # 5.5 K/mcL (1.6-8.9); Platelet Count 183 K/mcL (140-400); Red Blood Count 2.94 M/mcL (4.19-5.50); Red Cell Distribution Width 14.1 % (11.5-14.5); Segmented Neutrophils % 61.5 %
[2018-05-27 05:00] LABS: Hemoglobin 8.9 g/dL (12.9-16.9)
[2018-05-27 05:17] LABS: BUN/Creatinine Ratio 19 (6-26); Blood Urea Nitrogen 26 mg/dL (8-23); Calcium 8.1 mg/dL (8.6-10.3); Carbon Dioxide 28 mEq/L (23-29); Chloride 99 mEq/L (98-107); Glucose 157 mg/dL (70-105); Osmolality,Calculated 286 (280-300); Potassium 3.8 mEq/L (3.5-5.1); Sodium 134 mEq/L (136-145); eGFR For Non-African Americans 51 (> 60)
[2018-05-27 05:42] LABS: Platelet Estimate Normal (Normal)
[2018-05-27] MEDS: Doxycycline 100 MG in 0.9 % Sodium Chloride Mini Bag 100 ML IVPB SCH ×2 (06:16→17:47)
[2018-05-27 07:23] LABS: Estimated Average Glucose 148 mg/dl; Hemoglobin A1C 6.8 %
[2018-05-27 08:21] LABS: Hematocrit 26.4 % (37.5-50.1); Hemoglobin 8.8 g/dL (12.9-16.9)
[2018-05-27] MEDS: Insulin LISPRO 300 UNITS/3 ML VIAL SQ SCH ×3 (08:41→17:47)
[2018-05-27] MEDS ORDERED: cefTRIAXone 1,000 MG in Water for inj. (sterile) 20 ML 10 ML IVP SCH (09:00)
[2018-05-27] MEDS ORDERED: Lisinopril 20 MG TABLET PO SCH (09:00)
[2018-05-27] MEDS ORDERED: *HR* Rivaroxaban 15 MG TABLET PO SCH (09:00)
[2018-05-27] MEDS ORDERED: Magnesium Oxide 400 MG TABLET PO SCH (09:00)
[2018-05-27 11:01] VITALS: BP 107/59
[2018-05-27 14:15] LABS: Hematocrit 27.2 % (37.5-50.1); Hemoglobin 9.1 g/dL (12.9-16.9)
--- NOTE | 2018-05-27 14:26 | Discharge Summary ---
- NOTES TO OUTPATIENT PROVIDER Notes to Outpatient Provider: Metformin and lisinopril held for NITESH after diuresis. Follow-up BMP in 3-5 days. Consider adding HCTZ or Lasix for diuresis. Patient has incidental 4 mm right upper lobe nodule however given smoking she is ascending more than 15 years ago and does not need any follow-up. Follow-up hemoglobin as well as in 3-5 days. Follow up final blood cultures Orders not resulted at time of discharge: Pending orders 05/26/18 16:06 Culture,Blood [BC] Stat 05/27/18 08:54 Occult Blood,Stool [BF] Routine Date of Encounter: 05/27/18 Time of Encounter: 14:23 - Discharge Diagnosis (1) Fever Priority: Primary Status: Acute Qualifiers: Fever type: due to other condition Qualified Code(s): R50.81 - Fever presenting with conditions classified elsewhere (2) CHF exacerbation Priority: Primary Status: Acute Qualifiers: Qualified Code(s): I50.33 - Acute on chronic diastolic (congestive) heart failure (3) Cough Priority: Primary Status: Acute (4) Peripheral edema Priority: Primary Status: Acute (5) Status post total knee replacement, right Priority: Secondary Status: Acute (6) DMII (diabetes mellitus, type 2) Priority: Secondary Status: Chronic Qualifiers: Diabetes mellitus [facility] insulin use: without joint terminal attack controller use Diabetes bryan litus complication status: with unspecified complications Qualified Code(s): E11.8 - Type 2 diabetes mellitus with unspecified complications (7) HTN (hypertension) Priority: Secondary Status: Chronic Qualifiers: Hypertension type: essential hypertension Qualified Code(s): I10 - Essential (primary) hypertension (8) Obesity (BMI 30.0-34.9) Priority: Secondary Status: Chronic (9) Paroxysmal atrial fibrillation Priority: Secondary Status: Chronic (10) Hyponatremia Priority: Secondary Status: Acute (11) Anemia Priority: Secondary Status: Acute Qualifiers: Anemia type: iron deficiency Qualified Code(s): D50.8 - Other iron deficiency anemias (12) CKD (chronic kidney disease) stage 2, GFR 60-89 ml/min Priority: Secondary Status: Acute (13) Lung nodule Priority: Secondary Status: Acute Hospital course: Mr. Quinn is a 82 year old male with past medical history of A. fib on xarelto, diabetes, diastolic CHF presented for fever and cough for 3 days. Patient had a temperature of 104. Patient had a CTA B did not show any PE or any infiltrates. There was incidental 4 mm nodule in the right upper lobe. Patient's influenza testing and respiratory infectious panel was negative. Patient received ceftriaxone and doxycycline while in hospital. On admission patient did have bilateral lung crackles as well as pedal edema indicating patient's symptoms were more likely from CHF then pneumonia. However pneumonia could not be completely ruled out. His other home medications were continued. Patient was diuresed with Lasix. He was euvolemic the next day. He was otherwise stable however did develop some NITESH from diuresis. His initial UA was abnormal however was poor sample and he did not complain any urinary comp laints. We will discharge him today while holding his metformin and lisinopril. Patient wanting to go home today. His hemoglobin has remained low but stable and not very different from his baseline this year. Denies any dhruv blood in stool or any melena or hematemesis. Will need follow-up outpatient Discharge discussed with: patient, nurse - Time Spent with Patient Total time spent providing and/or coordinating discharge services: Greater than 30 minutes (35) - Discharge Medications Prescriptions: Cefdinir [Omnicef] 300 mg PO BID 3 Days #6 capsule Home Medications: Lovastatin 40 mg PO DAILY 02/22/17 [History] Rivaroxaban [Xarelto] 15 mg PO DAILY 02/22/17 [History] Saxagliptin HCl [Onglyza] 5 mg PO DAILY 02/22/17 [History] Sotalol HCl [Betapace] 120 mg PO BID 02/22/17 [History] HYDROcodone/Acet 10/325 mg [[place] 10-325 mg] 1 tab PO Q6H PRN #28 tablet 04/10/17 [Rx] Multivitamin [One Daily Essential] 1 tab PO DAILY 04/11/17 [History] Magnesium Oxide [Magnesium] 400 mg PO DAILY 03/06/18 [History] Psyllium Husk [Metamucil] 1.04 gm PO DAILY 05/26/18 [History] Cefdinir [Omnicef] 300 mg PO BID 3 Days #6 capsule 05/27/18 [Rx] Allergies/Adverse Reactions: Allergy/AdvReac Type Severity Reaction Status Date / Time No Known Allergies Allergy Verified 05/26/18 13:32 Date of admission: 05/26/18 15:14 Primary care physician: Wilmer Maravilla DO Consults: 05/26/18 16:21 Consult to Orthopedic Surgery [CONS] Routine Consulting Provider: [facility] Reason for Consult: evaluate for septic arthritis Call Completed: Yes Discharging clinician: Dustin Do - Constitutional Vitals: Temp Pulse Resp BP Pulse Ox 99.0 F 68 18 107/59 97 05/27/18 11:00 05/27/18 11:00 05/27/18 11:00 05/27/18 11:00 05/27/18 11:00 Exam: Constitutional: Vitals as noted. Conversant. No Apparent Distress. ENT : Grossly normal hearing. no JVD, no cervical lymphadenopathy. no thyromegaly or mass. Respiratory : CTAB, no rhonchi or wheezes. Cardiovascular : RRR, +S1, +S2. no murmur, gallop, rubs. No chest wall tenderness GI/Abdominal : Soft, Non-tender, Non-distended, normal bowel sounds, soft, no peritoneal signs. no orgenomegaly or mass appreciated. no hernia. Musculoskeletal: no cyanosis. warm extremities. no calf tenderness. b/l scars of total knee replacement. Mild tenderness on Medial aspect of the Rt knee. Pedal edema resolved. Mild on Lt Neurological: AO X3, CN II-XII grossly intact, grossly normal motor and sensory exam. Skin: No skin rash, lesions or ulcers noted. - Patient Status Disposition: Home, Self-Care Condition: Fair - Discharge Instructions Follow Up With: John Maravilla DO [Primary Care Provider] - - Diet and Activity Activity: as per physical therapy
== END 2018-05-27 18:50 | disposition home or self-care (01) ==
LOC: EMEROOARM 11:48 → 2ANU 11:48 → SUATTDRO 15:14 → 2ANU 16:09
PROVIDERS: ADMIT Internal Medicine Cardiovascular Disease; ATTEND Internal Medicine

== ENCOUNTER 2019-01-27 15:50 | Observation (INO) ==
[2019-01-27] MEDS ORDERED: 0.9 % Sodium Chloride 1,000 ML IVC ONE (16:14)
[2019-01-27] MEDS ORDERED: Ondansetron 4 MG/2 ML VIAL IVP ONE (16:14)
[2019-01-27 16:30] LABS: Basophils # 0.1 K/mcL (0.0-0.2); Basophils % 0.6 %; Eosinophils # 0.3 K/mcL (0.0-0.6); Eosinophils % 3.7 %; Hematocrit 36.9 % (37.5-50.1); Hemoglobin 12.5 g/dL (12.9-16.9); Immature Granulocytes % 0.2 % (0-4); Lymphocytes # 2.2 K/mcL (0.6-4.6); Lymphocytes % 25.5 %; Mean Corpuscular HGB Conc 33.9 g/dL (31.6-35.5); Mean Corpuscular Hemoglobin 31.5 pg (28.0-33.3); Mean Corpuscular Volume 92.9 fL (83.0-100.0); Mean Platelet Volume 9.1 fL (9.4-12.4); Monocytes # 0.7 K/mcL (0.0-1.3); Monocytes % 8.5 %; Neutrophils # 5.2 K/mcL (1.6-8.9); Platelet Count 270 K/mcL (140-400); Red Blood Count 3.97 M/mcL (4.19-5.50); Red Cell Distribution Width 13.5 % (11.5-14.5); Segmented Neutrophils % 61.5 %; White Blood Count 8.5 K/mcL (4.3-11.1)
[2019-01-27 16:51] LABS: Alanine Aminotransferase 16 Units/L (7-52); Albumin 4.1 g/dL (3.5-5.7); Albumin/Globulin Ratio 1.4 (1.1-2.2); Alkaline Phosphatase 61 Units/L (34-104); Aspartate Amino Transferase 15 Units/L (13-39); BUN/Creatinine Ratio 19 (6-26); Bilirubin,Total 0.5 mg/dL (0.3-1.0); Blood Urea Nitrogen 20 mg/dL (8-23); Calcium 9.3 mg/dL (8.6-10.3); Carbon Dioxide 26 mEq/L (23-29); Chloride 98 mEq/L (98-107); Globulin 2.9 g/dL (2.4-3.5); Glucose 214 mg/dL (70-105); Lipase 24 Units/L (11-82); Osmolality,Calculated 289 (280-300); Potassium 4.2 mEq/L (3.5-5.1); Sodium 135 mEq/L (136-145); Troponin I < 0.03 ng/mL (< 0.04); eGFR For African Americans > 60 (> 60); eGFR For Non-African Americans > 60 (> 60)
--- NOTE | 2019-01-27 16:56 | Emergency Department Note ---
Disposition Clinical Impression: Weakness, Lethargy Disposition: Admitted As Inpatient Condition: Good Referrals: John Maravilla DO [Primary Care Provider] - Forms: ED Satisfaction Letter, Work/School Release Time of Disposition: 19:05 General Adult HPI - General Chief complaint: ED Abdominal Pain Stated complaint: nausea Time Seen by Provider: 01/27/19 16:14 Source: family, EMS Mode of arrival: ambulatory Limitations: no limitations Nursing Notes Reviewed: Yes Vital Signs Reviewed: Yes - History of Present Illness HPI Narrative: Patient with a history of chronic kidney disease, A. fib, hypertension, diabetes. Also CHF. States no previous IN. Pt complains of getting out of the car today and feeling very light headed. Daughter states that he was very diaphoretic and cold at that time. Pt has had 1 episode of vomiting since he came here and has remained nauseated. He reports being very tired. Patient denies any abdominal pain. Is not taking anything to try to make this better. No provoking factors. States that he just feels very tired 100 Pain Scale: 0 - Related Data Home Medications Medication Instructions Recorded Confirmed Lovastatin 40 mg PO DAILY 02/22/17 05/26/18 Rivaroxaban [Xarelto] 15 mg PO DAILY 02/22/17 05/26/18 Saxagliptin HCl [Onglyza] 5 mg PO DAILY 02/22/17 05/26/18 Sotalol HCl [Betapace] 120 mg PO BID 02/22/17 05/26/18 Multivitamin [One Daily Essential] 1 tab PO DAILY 04/11/17 05/26/18 Magnesium Oxide [Magnesium] 400 mg PO DAILY 03/06/18 05/26/18 Psyllium Husk [Metamucil] 1.04 gm PO DAILY 05/26/18 05/26/18 Previous Rx's Medication Instructions Recorded HYDROcodone/Acet 10/325 mg [[place] 1 tab PO Q6H PRN #28 tablet 04/10/17 10-325 mg] Allergies Allergy/AdvReac Type Severity Reaction Status Date / Time No Known Allergies Allergy Verified 01/27/19 15:57 All systems ED: reviewed and negative except as stated. Review of Systems: As Per HPI Constitutional: Denies: fever, chills Cardiovascular: Denies: chest pain, palpitations, syncope Respiratory: Denies: cough, dyspnea Gastrointestinal: Reports: nausea, vomiting (1 time). Denies: abdominal pain, diarrhea, hematemesis, melena, hematochezia Genitourinary: Denies: urgency, dysuria, frequency, hematuria Musculoskeletal: Denies: back pain, neck pain Integumentary: Denies: rash Neurological: Reports: weakness Past Medical History - Past Medical History Attestation: Yes The following information was validated with the patient. Source: patient Medical history: Reports: atrial fibrillation, cancer, diabetes, hypertension, other Surgical history: Reports: cholecystectomy, herniorrhaphy Psychiatric history: Reports: no psych history - Social History Smoking Status: Never smoker Smokeless Tobacco Status: No Alcohol use: Reports: none Drug use: Reports: none Physical Exam - General Limitations: no limitations General appearance: alert, lethargic - Head Head exam: atraumatic, normocephalic, normal inspection - Eye Eye exam: Present: normal appearance, PERRL, EOMI - ENT ENT exam: normal exam, normal oropharynx, mucous membranes moist - Neck Neck exam: Present: normal inspection, full ROM, trachea midline - Chest Chest inspection: Present: normal inspection, symmetric chest wall rise - Respiratory Respiratory exam: Present: normal lung sounds bilaterally. Absent: respiratory distress, accessory muscle use - Cardiovascular Cardiovascular exam: Present: regular rate, normal rhythm, normal heart sounds - Abdominal Exam Abdominal exam: Present: soft, Non-Tender. Absent: tenderness, distention, guarding, rebound, rigidity, organomegaly, Oconnell's sign, Rovsing's sign, tenderness at McBurney's Point - Extremities Exam Extremities exam: Present: normal inspection, full ROM, normal capillary refill, pedal edema (to lef left lower extremity to the knee). Absent: tenderness, calf tenderness - Back Exam Back exam: Present: normal inspection, full ROM. Absent: tenderness - Neurological Exam Neurological exam: Present: alert, oriented X3, CN II-XII intact. Absent: motor sensory deficit - Psychiatric Psychiatric exam: Present: normal affect, normal mood - Skin Skin exam: Present: warm, dry, intact, pallor. Absent: rash Course Course Narrative: Patient looks generalized weak. He is pallor in color. Lung sounds are clear heart tones are normal. He denies any shortness of breath or chest pain. He does look like he is extremely tired. He does arouse with no neuro deficits however he quickly lays back down. Head CT is normal chest x-ray is not concerning. No significant lab abnormalities. Do not believe that the patient will ambulate well secondary to his weakness. We will admit patient to the hospital [place] to this weakness. The hospitalist did request an ammonia level as well as a lactic acid. We will provide this at this time. I cannot find an underlying reason for his weakness. The daughter states that this is not his baseline. He is generally very active. I am concerned for the patient's well- being we will admit the patient to the hospital for observation. He does appear to be a high fall risk and is extremely fatigued. Vital Signs Temperature 97.6 F 01/27/19 15:57 Pulse Rate 62 01/27/19 15:57 Respiratory Rate 18 01/27/19 15:57 Blood Pressure 176/93 01/27/19 15:57 O2 Sat by Pulse Oximetry 96 01/27/19 15:57 Temperature 97.6 F 01/27/19 15:57 Pulse Rate 67 01/27/19 17:11 Respiratory Rate 17 01/27/19 17:11 Blood Pressure 171/84 01/27/19 17:11 O2 Sat by Pulse Oximetry 96 01/27/19 17:11 Oxygen Delivery Oxygen Delivery Room Air Medical Decision Making - [facility] Narrative Medical decision making narrative: Head CT 01/27/19 17:00 IMPRESSION: Atrophy and mild small vessel ischemic disease. Complete opacification of the left maxillary sinus, suggestive of chronic sinus disease. D/ / Abraham Frazier MD / Abraham Frazier MD Interpreting Provider: Abraham Frazier MD 1750 hrs.: Patient's labs are back and are fairly unremarkable. CT is unremarkable for any changes. Waiting on chest x-ray. He is unable to get up and ambulate without risk of false I think he needs to come in this is a new for him, impression is generalized weakness uncertain etiology with high risk of fall. We will try to admit him to the hospital. Head CT 01/27/19 17:00 IMPRESSION: Atrophy and mild small vessel ischemic disease. Complete opacification of the left maxillary sinus, suggestive of chronic sinus disease. D/ / Abraham Frazier MD / Abraham Frazier MD Interpreting Provider: Abraham Frazier MD Chest X-Ray 01/27/19 17:45 IMPRESSION: Minimal linear atelectasis left lung base No acute abnormality otherwise D/ / Robert Ragland / Robert Ragland Interpreting Provider: Robert Ragland - Medical Records Medical records reviewed: Yes I reviewed the patient's medical records. - Lab Data Lab results reviewed: Yes I reviewed the patient's lab results. Result diagrams: 01/27/19 16:10 01/27/19 16:10 Lab Results 01/27/19 01/27/19 01/27/19 Range/Units 16:10 16:10 17:31 WBC 8.5 (4.3-11.1) K/mcL RBC 3.97 L (4.19-5.50) M/mcL Hgb 12.5 L (12.9-16.9) g/dL Hct 36.9 L (37.5-50.1) % MCV 92.9 (83.0-100.0) fL MCH 31.5 (28.0-33.3) pg MCHC 33.9 (31.6-35.5) g/dL RDW 13.5 (11.5-14.5) % Plt Count 270 (140-400) K/mcL MPV 9.1 L (9.4-12.4) fL Immature Gran % 0.2 (0-4) % Seg Neutrophils % 61.5 % Lymphocytes % 25.5 % Monocytes % 8.5 % Eosinophils % 3.7 % Basophils % 0.6 % Neutrophils # 5.2 (1.6-8.9) K/mcL Lymphocytes # 2.2 (0.6-4.6) K/mcL Monocytes # 0.7 (0.0-1.3) K/mcL Eosinophils # 0.3 (0.0-0.6) K/mcL Basophils # 0.1 (0.0-0.2) K/mcL Sodium 135 L (136-145) mEq/L Potassium 4.2 (3.5-5.1) mEq/L Chloride 98 (98-107) mEq/L Carbon Dioxide 26 (23-29) mEq/L BUN 20 (8-23) mg/dL Creatinine 1.08 (0.70-1.30) mg/dL Est GFR ( Amer) > 60 (> 60) Est GFR (Non-Af Amer) > 60 (> 60) BUN/Creatinine Ratio 19 (6-26) Glucose 214 H (70-105) mg/dL Calculated Osmolality 289 (280-300) Calcium 9.3 (8.6-10.3) mg/dL Total Bilirubin 0.5 (0.3-1.0) mg/dL AST 15 (13-39) Units/L ALT 16 (7-52) Units/L Alkaline Phosphatase 61 (34-104) Units/L Troponin I < 0.03 (< 0.04) ng/mL Serum Total Protein 7.0 (6.4-8.9) g/dL Albumin 4.1 (3.5-5.7) g/dL Globulin 2.9 (2.4-3.5) g/dL Albumin/Globulin Ratio 1.4 (1.1-2.2) Lipase 24 (11-82) Units/L Urine Color Yellow (Yellow) Urine Clarity Clear (Clear) Urine pH 6.5 (5.0-8.0) pH Units Ur Specific [place] 1.016 (1.010-1.025) Urine Protein 30 H (Neg-Trace) mg/dL Urine Glucose (UA) 100 H (Normal) mg/dL Urine Ketones Negative (Negative) mg/dL Urine Blood Negative (Negative) Urine Nitrite Negative (Negative) Urine Bilirubin Negative (Negative) Urine Urobilinogen Normal (Normal) mg/dL Ur Leukocyte Esterase Negative (Negative) Urine Microscopic RBC 0-3 (0-3) per hpf Urine Microscopic WBC 0-3 (0-3) per hpf Ur Squamous Epith Cells Many H (None-Few) per lpf Urine Bacteria None Seen (None-Few) per hpf Hyaline Casts None Seen (None-Few) per lpf Ur Culture Indicated? NO (NO) - Radiology Data Radiology results reviewed: Yes I reviewed the patient's radiology results. Head CT 01/27/19 17:00 IMPRESSION: Atrophy and mild small vessel ischemic disease. Complete opacification of the left maxillary sinus, suggestive of chronic sinus disease. D/ / Abraham Frazier MD / Abraham Frazier MD Interpreting Provider: Abraham Frazier MD Chest X-Ray 01/27/19 17:45 IMPRESSION: Minimal linear atelectasis left lung base No acute abnormality otherwise D/ / Robert Ragland / Robert Ragland Interpreting Provider: Robert Ragland - EKG Data EKG #1 EKG attestation: Yes I reviewed and interpreted this EKG. EKG results narrative: Normal sinus rhythm at a rate of 62. MS interval is 263. Castration is 88. QT is 462. QTC is 470. No signs of acute ischemia. Good R-wave progression. No signs of WPW or Brugada. No significant change from previous EKG dated 2017. Attestation Statement - Attestation Attestation: This documentation is done with the assistance of Dragon dictation. Despite efforts made to ensure accuracy, there may be inaccuracies in art class model or spelling and typographical errors. I examined this patient and my medical decision-making was reviewed with the Resident Physician. I agree with the documented findings, disposition and treatment plan as described except to the extent set forth below. Patient was seen and evaluated by Dr. Waters, I agree with their evaluation and management plan, I supervised care the patient's stay. Patient presents today not feeling well he went and got picked up his 's prescription said he had difficulty coming back to the car states that he just felt overall weak denies any focal weakness denies any chest pain or shortness of breath. Were in order a workup on him including a head CT and reassess. He is in agreement with plan. No neuro deficits here. I reviewed the residents documentation and agree with the residents assessment and plan of care. I have personally had face to face time with the patient. (Brief History, Brief Exam, and MDM) I personally supervised and was present for the blancas/critical portions of the following procedures completed by the resident: EKG was interpreted by the resident under my supervision, I agree with their interpretation.
[2019-01-27 17:46] LABS: Bilirubin,Urine Negative (Negative); Blood,Urine Negative (Negative); Clarity,Urine Clear (Clear); Color,Urine Yellow (Yellow); Glucose,Urine (UA) 100 mg/dL (Normal); Ketones,Urine Negative (Negative); Leukocyte Esterase,Urine Negative (Negative); Nitrite,Urine Negative (Negative); PH,Urine 6.5 pH Units (5.0-8.0); Protein,Urine 30 mg/dL (Neg-Trace); Specific Gravity,Urine 1.016 (1.010-1.025); Urobilinogen,Urine Normal (Normal)
[2019-01-27 17:48] LABS: Bacteria,Urine None Seen per hpf (None-Few); Hyaline Casts,Urine None Seen per lpf (None-Few); RBC,Urine 0-3 per hpf (0-3); Squamous Epithelial Cell,Urine Many per lpf (None-Few); WBC,Urine 0-3 per hpf (0-3)
[2019-01-27] MEDS ORDERED: Ondansetron 4 MG/2 ML VIAL IVP PRN (19:48)
[2019-01-27] MEDS ORDERED: Dextrose Gel 15 GM/37.5 ML TUBE PO PRN ×2 (19:49)
[2019-01-27] MEDS ORDERED: *HR* HYDROcodone/Acet 5/325 mg TABLET PO PRN ×2 (19:49→20:03)
[2019-01-27] MEDS ORDERED: *HR* Dextrose 50 % in Water (Syg) 50 ML SYRINGE IVP PRN (19:49)
[2019-01-27] MEDS ORDERED: Acetaminophen 325 MG TABLET PO PRN (19:49)
[2019-01-27] MEDS ORDERED: Ringers Solution, Lactated 1,000 ML IVC SCH (20:00)
[2019-01-27] MEDS ORDERED: traMADol 50 MG TABLET PO PRN (20:06)
[2019-01-27] MEDS ORDERED: Insulin LISPRO 300 UNITS/3 ML VIAL SQ SCH (21:00)
--- NOTE | 2019-01-27 21:06 | Internal Med History&Physical ---
Date of Encounter: 01/27/19 Time of Encounter: 21:05 Internal Medicine - H&P: HPI Chief complaint: weakness Admitted From: Home Plans for Post Hospital Care: Home History of present illness: Jesus Quinn is an 83 year old man with hypertension, hyperlipidemia, atrial fibrillation and diabetes who is brought to the emergency room with a complaint of acute onset weakness and lightheadedness. The patient states that he has been doing well these past few days and woke up fine without issues however this afternoon after going to the store to buy some things and arriving home, when he attempted to get out of the car he became significantly tired and fatigued. He denied associated chest pain, headache and shortness of breath. He did feel nauseated but did not vomit at the time. He was helped into the house where he remained significantly weakened in a generalized fashion without focal deficits. When he attempted to get up to the bathroom from a seated position he again became dizzy and lethargic and almost falling for which reason EMS was called and he was brought to the emergency room. On arrival here when he was put on the bed he vomited one time. He denies abdominal pain however. He denies dysuria, fever, chills and diarrhea. He denies being in the sun for prolonged periods of time today and says he had breakfast earlier. The only thing out of the ordinary was him eating [place] licorice while in the car before this fatigue and lightheadedness started. In the ER he has remained hemodynamically stable. Lab work was grossly unrevealing and chest/head CT images showed no acute anomalies. Due to his ongoing malaise and fatigue is decided he be admitted for observation. EKG shows rate-controlled atrial fibrillation. Vitals: Reviewed General: Well-developed elderly white man lying comfortably in bed in no acute distress. Skin: Pale skin warm and dry. HEENT: Slightly dry mucous membranes. Mild conjunctivae pallor. Neck: No lymphadenopathy. No JVD. No carotid bruits. No palpable thyroid. Chest: Normal thoracic expansion. Normal breath sounds. Clear to auscultation. Heart: Irregularly irregular. Abdomen: Non-distended, soft and non-tender to palpation. No peritoneal reaction. Extremities: Left leg lymphedema. Right leg without c/c/e Neurological: Awake, alert and oriented to person, place and time. No focal deficits. Psych: Affect appropriate. Assessment/Plan 1. Generalized weakness: Unclear etiology. No signs of ischemic coronary syndrome at this time. His physical exam is non-focal and not suggestive of infarction. He has a negative head CT. He appears euvolemic and says he has been eating and drinking well over the past days. He has no electrolyte imbalances. No signs of infection present. His home medication list has sotalol which is known to cause weakness, fatigue, dizziness in a large percentage of users. This is a potential cause. Although his hemodynamics are stable, will also need to consider orthostasis as a potential cause noting it frequently happens with getting up from a seated position. Will ensure orthostatic vitals are checked. In the interim will monitor him on telemetry, repeat lab work in the morning to ensure normalcy, place him on LR fluid resuscitation overnight. 2. Atrial fibrillation: Rate controlled and on rivaroxaban. 3. Hypertension: Uncontrolled. Will 4. Hyperlipidemia: On statin. 5. Diabetes: Poorly controlled with A1C of 8.1% [address] on insulin sliding scale for now. Past Med Surg Social Fam HX - Past Medical History Medical history: atrial fibrillation, cancer, diabetes, hypertension, other Additional medical history: colon ca, venous insufficiency, lymphedema, Psychiatric history: no psych history - Past Surgical History Surgical History: cholecystectomy, herniorrhaphy Additional surgical history: left wrist, back surgery, colon cancer surgery, left tkr. Rt TKR - Social History Smoking Status: Never smoker Smokeless Tobacco Status: No Alcohol use: none Drug use: none - Family History Mother Living Status: Hx Family Cardiac Disorders: Yes (?Heart problems) Hx Family Endocrine Disorder: Yes Internal Medicine - H&P: Meds Lovastatin 40 mg PO DAILY 02/22/17 [History] Rivaroxaban [Xarelto] 15 mg PO DAILY 02/22/17 [History] Sotalol HCl [Betapace] 120 mg PO BID 02/22/17 [History] HYDROcodone/Acet 10/325 mg [[place] 10-325 mg] 1 tab PO Q6H PRN #28 tablet 04/10/17 [Rx] Multivitamin [One Daily Essential] 1 tab PO DAILY 04/11/17 [History] Psyllium Husk [Metamucil] 1.04 gm PO DAILY 05/26/18 [History] metFORMIN [Glucophage] 1,000 mg PO BIDWM 01/27/19 [History] Allergy/AdvReac Type Severity Reaction Status Date / Time No Known Allergies Allergy Verified 01/27/19 15:57 All Systems PM: A 10-system review of systems was performed and is negative for pertinent findings except as documented above in the HPI. - Constitutional Vitals: Temp Pulse Resp BP Pulse Ox 97.6 F 67 18 156/71 97 01/27/19 15:57 01/27/19 20:10 01/27/19 20:10 01/27/19 20:10 01/27/19 20:10 Exam: . Internal Med - H&P Results - Labs CBC & Chem 7: 01/27/19 16:10 01/27/19 16:10 Labs: Short CBC 01/27/19 Range/Units 16:10 WBC 8.5 (4.3-11.1) K/mcL Hgb 12.5 L (12.9-16.9) g/dL Hct 36.9 L (37.5-50.1) % Plt Count 270 (140-400) K/mcL Neutrophils # 5.2 (1.6-8.9) K/mcL BMP 01/27/19 16:10 Sodium 135 L Potassium 4.2 Chloride 98 Carbon Dioxide 26 BUN 20 Creatinine 1.08 Glucose 214 H Calcium 9.3 Cardiac Enzymes 01/27/19 Range/Units 16:10 Troponin I < 0.03 (< 0.04) ng/mL Liver Function 01/27/19 Range/Units 16:10 Total Bilirubin 0.5 (0.3-1.0) mg/dL AST 15 (13-39) Units/L ALT 16 (7-52) Units/L Alkaline Phosphatase 61 (34-104) Units/L Albumin 4.1 (3.5-5.7) g/dL Urine 01/27/19 Range/Units 17:31 Urine Color Yellow (Yellow) Urine Clarity Clear (Clear) Urine pH 6.5 (5.0-8.0) pH Units Ur Specific [place] 1.016 (1.010-1.025) Urine Protein 30 H (Neg-Trace) mg/dL Urine Glucose (UA) 100 H (Normal) mg/dL - Impressions ITS Impressions Head CT 01/27/19 17:00 IMPRESSION: Atrophy and mild small vessel ischemic disease. Complete opacification of the left maxillary sinus, suggestive of chronic sinus disease. D/ / Abraham Frazier MD / Abraham Frazier MD Interpreting Provider: Abraham Frazier MD Chest X-Ray 01/27/19 17:45 IMPRESSION: Minimal linear atelectasis left lung base No acute abnormality otherwise D/ / Robert Ragland / Robert Ragland Interpreting Provider: Robert Ragland - Time Spent With Patient Total time spent is greater than 50% in coordination of care (as documented) at patient's floor/unit and/or counseling patient:
[2019-01-28 04:49] LABS: Basophils % 0.3 %; Eosinophils # 0.1 K/mcL (0.0-0.6); Hematocrit 34.8 % (37.5-50.1); Hemoglobin 11.6 g/dL (12.9-16.9); Immature Granulocytes % 0.2 % (0-4); Lymphocytes # 1.9 K/mcL (0.6-4.6); Lymphocytes % 21.1 %; Mean Corpuscular HGB Conc 33.3 g/dL (31.6-35.5); Mean Corpuscular Hemoglobin 31.1 pg (28.0-33.3); Mean Corpuscular Volume 93.3 fL (83.0-100.0); Mean Platelet Volume 9.4 fL (9.4-12.4); Monocytes # 0.8 K/mcL (0.0-1.3); Monocytes % 8.9 %; Neutrophils # 6.1 K/mcL (1.6-8.9); Platelet Count 246 K/mcL (140-400); Red Blood Count 3.73 M/mcL (4.19-5.50); Red Cell Distribution Width 13.5 % (11.5-14.5); Segmented Neutrophils % 68.5 %
[2019-01-28 05:10] LABS: BUN/Creatinine Ratio 18 (6-26); Blood Urea Nitrogen 17 mg/dL (8-23); Calcium 8.6 mg/dL (8.6-10.3); Carbon Dioxide 27 mEq/L (23-29); Chloride 103 mEq/L (98-107); Glucose 190 mg/dL (70-105); Osmolality,Calculated 291 (280-300); Potassium 3.8 mEq/L (3.5-5.1); Sodium 137 mEq/L (136-145); Troponin I < 0.03 ng/mL (< 0.04); eGFR For African Americans > 60 (> 60); eGFR For Non-African Americans > 60 (> 60)
[2019-01-28] MEDS ORDERED: Insulin LISPRO 300 UNITS/3 ML VIAL SQ SCH (07:30)
[2019-01-28] MEDS ORDERED: Psyllium 1 PACKET POWD.PACK PO SCH (09:00)
[2019-01-28] MEDS ORDERED: *HR* Rivaroxaban 15 MG TABLET PO SCH (09:00)
[2019-01-28] MEDS ORDERED: Multivit/Ca/Min/Fe/FA 1 TAB TABLET PO SCH (09:00)
[2019-01-28 11:13] VITALS: BP 132/68
--- NOTE | 2019-01-28 11:22 | Discharge Summary ---
<Aundrea Alegre S - Last Filed: 01/28/19 14:05> - NOTES TO OUTPATIENT PROVIDER Notes to Outpatient Provider: Mr. Quinn is a 83M who was brought to our ED on 01/27 after having an episode of lightheadedness, diaphoresis and nausea while stepping out of his car. No loss of consciousness, no changes in vision, did not fall or hit his head. PMH of left leg lymphedema, A. fib (on Xarelto), hypertension, hyperlipidemia, CHF, diabetes. Had 1 episode of nonbilious, nonbloody emesis in the ED. Was admitted for further monitoring. EKG was unremarkable (rate controlled afib), head CT negative, chest x-ray negative, UA negative. Orthostatic vitals were within normal limits. Received resuscitation fluids. It is suspected that his medication, sotalol, may have precipitated these symptoms. All workup was negative, he was discharged home. Date of Encounter: 01/28/19 Time of Encounter: 14:16 - Discharge Diagnosis (1) Generalized weakness Priority: Primary Status: Acute (2) Atrial fibrillation Priority: Secondary Status: Chronic Qualifiers: Qualified Code(s): I48.91 - Unspecified atrial fibrillation (3) Hypertension Priority: Secondary Status: Chronic Qualifiers: Hypertension type: essential hypertension Qualified Code(s): I10 - Essential (primary) hypertension (4) Hyperlipidemia Priority: Secondary Status: Chronic Qualifiers: Hyperlipidemia type: unspecified Qualified Code(s): E78.5 - Hyperlipidemia, unspecified (5) Diabetes Priority: Secondary Status: Chronic Qualifiers: Diabetes mellitus type: type 2 Diabetes mellitus senior living insulin use: unspecified community organization director insulin use status Diabetes mellitus complication status: without complication Qualified Code(s): E11.9 - Type 2 diabetes mellitus without complications Hospital course: Mr. Quinn is a 83 year old male who was brought to our ED on 01/27/19 after having an episode of lightheadedness, diaphoresis and nausea while stepping out of his car. No loss of consciousness, no changes in vision, did not fall or hit his head. Has never had this before. PMH of left leg lymphedema, A. fib (on Xarelto), hypertension, hyperlipidemia, CHF, diabetes. Had 1 episode of nonbilious, nonbloody emesis in the ED. Was admitted for further monitoring. Received resuscitation fluids. EKG was unremarkable (rate controlled afib), head CT negative, chest x-ray negative, UA negative. Orthostatic vitals were within normal limits. It is suspected that his medication, sotalol, may have precipitated these symptoms. All workup was negative, he was discharged home. Discharge discussed with: patient - Time Spent with Patient Total time spent providing and/or coordinating discharge services: - Discharge Medications Prescriptions: Continued Rivaroxaban [Xarelto] 15 mg PO DAILY Lovastatin 40 mg PO DAILY Sotalol HCl [Betapace] 120 mg PO BID HYDROcodone/Acet 10/325 mg [[place] 10-325 mg] 1 tab PO Q6H PRN #28 tablet PRN Reason: Pain Multivitamin [One Daily Essential] 1 tab PO DAILY Psyllium Husk [Metamucil] 1.04 gm PO DAILY metFORMIN [Glucophage] 1,000 mg PO BIDWM Home Medications: Lovastatin 40 mg PO DAILY 02/22/17 [History] Rivaroxaban [Xarelto] 15 mg PO DAILY 02/22/17 [History] Sotalol HCl [Betapace] 120 mg PO BID 02/22/17 [History] HYDROcodone/Acet 10/325 mg [[place] 10-325 mg] 1 tab PO Q6H PRN #28 tablet 04/10/17 [Rx] Multivitamin [One Daily Essential] 1 tab PO DAILY 04/11/17 [History] Psyllium Husk [Metamucil] 1.04 gm PO DAILY 05/26/18 [History] metFORMIN [Glucophage] 1,000 mg PO BIDWM 01/27/19 [History] Allergies/Adverse Reactions: Allergy/AdvReac Type Severity Reaction Status Date / Time No Known Allergies Allergy Verified 01/27/19 15:57 Date of admission: 01/27/19 19:47 Primary care physician: Wilmer Maravilla DO Discharging clinician: Aundrea Alegre - Constitutional Vitals: Temp Pulse Resp BP Pulse Ox 98.2 F 62 16 132/68 95 01/28/19 11:12 01/28/19 11:12 01/28/19 11:12 01/28/19 11:12 01/28/19 11:12 Exam: General: Well-developed elderly white man lying comfortably in bed in no acute distress. Skin: Pale skin warm and dry. HEENT: Slightly dry mucous membranes. Mild conjunctivae pallor. Neck: No lymphadenopathy. No JVD. No carotid bruits. No palpable thyroid. Chest: Normal thoracic expansion. Normal breath sounds. Clear to auscultation. Heart: Irregularly irregular. Abdomen: Non-distended, soft and non-tender to palpation. No peritoneal reaction. Extremities: Left leg lymphedema. Right leg without c/c/e Neurological: Awake, alert and oriented to person, place and time. No focal deficits. Psych: Affect appropriate. . - Patient Status Disposition: Home, Self-Care Condition: Good Functional capacity at discharge: independent ambulation Overall status at discharge: patient is back to baseline - Discharge Instructions Instructions: Atrial Fibrillation (DC), Chronic Hypertension (DC), Anemia (GEN) Follow Up With: John Maravilla DO [Primary Care Provider] - Additional Instructions: Please continue home medications as instructed. Please follow up with PCP regarding your recent hospital stay. Please return to the emergency department if you experience fevers, chills, chest pain, shortness of breath, loss of consciousness, blood in stool or urine, or any other concerning or worsening symptoms. - Diet and Activity Activity: resume usual activities as tolerated Diet: advance to your usual diet <HuCatrachito A - Last Filed: 01/28/19 17:15> Date of Encounter: 01/28/19 - Discharge Diagnosis (1) Orthostatic hypotension Priority: Primary Status: Suspected (2) Weakness Priority: Secondary Status: Resolved (3) Atrial fibrillation Status: Chronic Qualifiers: Atrial fibrillation type: paroxysmal Qualified Code(s): I48.0 - Paroxysmal atrial fibrillation (4) Diabetes Status: Chronic Qualifiers: Diabetes mellitus type: type 2 Diabetes mellitus community organization director insulin use: without senior living use Diabetes mellitus complication status: without complication Qualified Code(s): E11.9 - Type 2 diabetes mellitus without complications (5) HTN (hypertension) Priority: Secondary Status: Chronic Qualifiers: Hypertension type: essential hypertension Qualified Code(s): I10 - Essential (primary) hypertension Hospital course: Mr. Quinn is a 83 year old male - Time Spent with Patient Total time spent providing and/or coordinating discharge services: Date of admission: 01/27/19 19:47 Primary care physician: Christopher J Skocik, DO - Constitutional Vitals: Temp Pulse Resp BP Pulse Ox 98.2 F 62 16 132/68 95 01/28/19 11:12 01/28/19 11:12 01/28/19 11:12 01/28/19 11:12 01/28/19 11:12 - Attending Attestation I examined this patient and my medical decision-making was reviewed with the Resident Physician on 01/28/19. I agree with the documented findings, disposition and treatment plan as described except to the extent set forth below. Mr Quinn has been hospitalized for weakness presumed due to hypovolemia. He has improved with fluids overnight. He feels "wonderful" at this time. He is afebrile and ready for discharge home. Exam: Alert. Comfortable. NC. Mucus membranes dry. EOMI. Heart not tachy no wheeze. Abd soft. No edema. Plan: D/C home today. D/C time 23min
--- NOTE | 2019-01-29 18:11 | Electrocardiograph Report ---
[address] [address] Test Date: 2019-01-27 Pat Name: Jesus Quinn Department: [id number] Room: 3B33 Gender: Records Management Clerk: : 1935 Requested By: Dorian Pete Order Number: [id number] Reading MD: Biju Romero Measurements Intervals [place] Rate: 62 P: 81 RI: 263 QRS: 77 QRSD: 88 T: 78 QT: 462 QTc: 470 Interpretive Statements Sinus rhythm with first degree AVB Atrial premature complexes Electronically Signed On 01-29-2019 18:09:46 EDT by Biju Romero
== END 2019-01-28 12:19 | disposition home or self-care (01) ==
LOC: 3BNU 15:50 → EMEROOARM 15:50 → SUATTDRO 19:47 → 3BNU 20:56
PROVIDERS: ADMIT Student in an Organized Health Care Education/Training Program; ATTEND Internal Medicine

== ENCOUNTER 2019-02-18 00:18 | Observation (INO) ==
[2019-02-18 01:09] LABS: Basophils # 0.1 K/mcL (0.0-0.2); Basophils % 0.4 %; Eosinophils # 0.3 K/mcL (0.0-0.6); Eosinophils % 1.9 %; Hematocrit 36.1 % (37.5-50.1); Hemoglobin 11.9 g/dL (12.9-16.9); Immature Granulocytes % 0.3 % (0-4); Lymphocytes # 1.8 K/mcL (0.6-4.6); Lymphocytes % 13.6 %; Mean Corpuscular Hemoglobin 31.2 pg (28.0-33.3); Mean Corpuscular Volume 94.5 fL (83.0-100.0); Mean Platelet Volume 8.9 fL (9.4-12.4); Monocytes # 0.8 K/mcL (0.0-1.3); Monocytes % 6.4 %; Neutrophils # 10.1 K/mcL (1.6-8.9); Platelet Count 308 K/mcL (140-400); Red Blood Count 3.82 M/mcL (4.19-5.50); Red Cell Distribution Width 13.6 % (11.5-14.5); Segmented Neutrophils % 77.4 %
[2019-02-18] MEDS ORDERED: 0.9 % Sodium Chloride 1,000 ML IV ONE (01:10)
[2019-02-18] MEDS ORDERED: Isovue-370 500 ML BOTTLE IVP ONE (01:11)
[2019-02-18] MEDS ORDERED: Ondansetron 4 MG/2 ML VIAL IVP ONE (01:11)
[2019-02-18 01:31] LABS: Alanine Aminotransferase 12 Units/L (7-52); Albumin 4.1 g/dL (3.5-5.7); Albumin/Globulin Ratio 1.3 (1.1-2.2); Alkaline Phosphatase 53 Units/L (34-104); Amylase 52 Units/L (29-103); Aspartate Amino Transferase 12 Units/L (13-39); BUN/Creatinine Ratio 19 (6-26); Bilirubin,Direct 0.1 mg/dL (0.0-0.2); Bilirubin,Indirect 0.4 mg/dL (0.0-1.2); Bilirubin,Total 0.5 mg/dL (0.3-1.0); Blood Urea Nitrogen 22 mg/dL (8-23); Calcium 9.4 mg/dL (8.6-10.3); Carbon Dioxide 30 mEq/L (23-29); Chloride 100 mEq/L (98-107); Globulin 3.1 g/dL (2.4-3.5); Glucose 216 mg/dL (70-105); Lipase 25 Units/L (11-82); Osmolality,Calculated 290 (280-300); Potassium 4.6 mEq/L (3.5-5.1); Sodium 135 mEq/L (136-145); Total Protein 7.2 g/dL (6.4-8.9); Troponin I < 0.03 ng/mL (< 0.04); eGFR For African Americans > 60 (> 60); eGFR For Non-African Americans > 60 (> 60)
[2019-02-18 01:39] LABS: Bilirubin,Urine Negative (Negative); Blood,Urine Negative (Negative); Clarity,Urine Clear (Clear); Color,Urine Yellow (Yellow); Glucose,Urine (UA) Normal (Normal); Ketones,Urine Negative (Negative); Leukocyte Esterase,Urine Negative (Negative); Nitrite,Urine Negative (Negative); PH,Urine 6.5 pH Units (5.0-8.0); Protein,Urine 100 mg/dL (Neg-Trace); Urobilinogen,Urine Normal (Normal)
[2019-02-18 01:41] LABS: Bacteria,Urine None Seen per hpf (None-Few); Hyaline Casts,Urine None Seen per lpf (None-Few); RBC,Urine 0-3 per hpf (0-3); Squamous Epithelial Cell,Urine Many per lpf (None-Few); WBC,Urine 0-3 per hpf (0-3)
[2019-02-18] MEDS ORDERED: cefTRIAXone 1,000 MG in Water for inj. (sterile) 10 ML IVP ONE (03:57)
[2019-02-18] MEDS ORDERED: Naloxone 0.4 MG/ML INJ IVP PRN (06:46)
[2019-02-18] MEDS ORDERED: Dextrose Gel 15 GM/37.5 ML TUBE PO PRN ×2 (06:55)
[2019-02-18] MEDS ORDERED: D5% in Water 1,000 ML IVC PRN (06:55)
[2019-02-18] MEDS ORDERED: *HR* Dextrose 50 % in Water (Syg) 50 ML SYRINGE IVP PRN (06:55)
[2019-02-18] MEDS ORDERED: Ondansetron 4 MG/2 ML VIAL IVP PRN (07:11)
[2019-02-18] MEDS: *HR* Rivaroxaban 15 MG TABLET PO SCH (08:55)
[2019-02-18] MEDS: Insulin LISPRO 300 UNITS/3 ML VIAL SQ SCH ×3 (08:55→17:05)
[2019-02-18] MEDS ORDERED: Ringers Solution, Lactated 1,000 ML IVC SCH (11:45)
[2019-02-18] MEDS ORDERED: Insulin LISPRO 300 UNITS/3 ML VIAL SQ SCH (21:00)
[2019-02-18] MEDS ORDERED: *HR* HYDROcodone/Acet 10/325 mg TABLET PO PRN (23:15)
[2019-02-19] MEDS: *HR* Rivaroxaban 15 MG TABLET PO SCH (08:15)
[2019-02-19] MEDS: Insulin LISPRO 300 UNITS/3 ML VIAL SQ SCH (08:21)
[2019-02-19 08:52] LABS: Basophils # 0.1 K/mcL (0.0-0.2); Basophils % 0.8 %; Eosinophils # 0.2 K/mcL (0.0-0.6); Eosinophils % 3.6 %; Hematocrit 36.8 % (37.5-50.1); Hemoglobin 12.1 g/dL (12.9-16.9); Immature Granulocytes % 0.3 % (0-4); Lymphocytes # 1.8 K/mcL (0.6-4.6); Mean Corpuscular HGB Conc 32.9 g/dL (31.6-35.5); Mean Corpuscular Hemoglobin 31.3 pg (28.0-33.3); Mean Corpuscular Volume 95.1 fL (83.0-100.0); Mean Platelet Volume 9.3 fL (9.4-12.4); Monocytes # 0.6 K/mcL (0.0-1.3); Monocytes % 8.6 %; Platelet Count 334 K/mcL (140-400); Red Blood Count 3.87 M/mcL (4.19-5.50); Red Cell Distribution Width 13.9 % (11.5-14.5); Segmented Neutrophils % 59.7 %; White Blood Count 6.6 K/mcL (4.3-11.1)
[2019-02-19] MEDS ORDERED: cefTRIAXone 1,000 MG in Water for inj. (sterile) 10 ML IVP SCH (09:00)
[2019-02-19 09:19] LABS: BUN/Creatinine Ratio 16 (6-26); Blood Urea Nitrogen 19 mg/dL (8-23); Calcium 9.2 mg/dL (8.6-10.3); Carbon Dioxide 30 mEq/L (23-29); Chloride 99 mEq/L (98-107); Glucose 184 mg/dL (70-105); Osmolality,Calculated 289 (280-300); Potassium 4.3 mEq/L (3.5-5.1); Sodium 136 mEq/L (136-145); eGFR For African Americans > 60 (> 60); eGFR For Non-African Americans 59 (> 60)
[2019-02-19 11:18] VITALS: BP 148/68
== END 2019-02-19 12:40 | disposition home or self-care (01) ==
LOC: 3BNU 00:18 → EMEROOARM 00:18 → 3BNU 05:05
PROVIDERS: ADMIT Pediatrics; ATTEND Pediatrics

== ENCOUNTER 2020-08-10 22:44 | Inpatient (IN) ==
[2020-08-10] MEDS ORDERED: Isovue-370 500 ML BOTTLE IVP ONE (23:01)
[2020-08-10] MEDS ORDERED: Ondansetron 4 MG/2 ML VIAL IVP ONE (23:06)
[2020-08-10 23:18] LABS: Basophils % 0.1 %; Eosinophils # 0.1 K/mcL (0.0-0.6); Eosinophils % 0.5 %; Hematocrit 36.9 % (37.5-50.1); Hemoglobin 12.1 g/dL (12.9-16.9); Immature Granulocytes % 0.4 % (0-4); Lymphocytes % 6.5 %; Mean Corpuscular HGB Conc 32.8 g/dL (31.6-35.5); Mean Corpuscular Hemoglobin 31.7 pg (28.0-33.3); Mean Corpuscular Volume 96.6 fL (83.0-100.0); Mean Platelet Volume 8.9 fL (9.4-12.4); Monocytes # 1.8 K/mcL (0.0-1.3); Monocytes % 11.8 %; Neutrophils # 12.2 K/mcL (1.6-8.9); Platelet Count 278 K/mcL (140-400); Red Blood Count 3.82 M/mcL (4.19-5.50); Red Cell Distribution Width 13.5 % (11.5-14.5); Segmented Neutrophils % 80.7 %; White Blood Count 15.1 K/mcL (4.3-11.1)
[2020-08-10 23:38] LABS: BUN/Creatinine Ratio 18 (6-26); Blood Urea Nitrogen 18 mg/dL (8-23); Calcium 8.8 mg/dL (8.6-10.3); Carbon Dioxide 26 mEq/L (23-29); Chloride 100 mEq/L (98-107); Glucose 202 mg/dL (70-105); Osmolality,Calculated 290 (280-300); Potassium 3.7 mEq/L (3.5-5.1); Sodium 136 mEq/L (136-145); Troponin I < 0.03 ng/mL (< 0.04); eGFR For African Americans > 60 (> 60); eGFR For Non-African Americans > 60 (> 60)
[2020-08-11] MEDS ORDERED: cefTRIAXone 1,000 MG in 0.9 % Sodium Chloride Mini Bag 100 ML IVPB ONE (01:12)
[2020-08-11] MEDS ORDERED: Azithromycin 500 MG in 0.9 % Sodium Chloride 250 ML IVPB ONE (01:12)
[2020-08-11 01:54] LABS: Adenovirus Not Detected (Not Detect); Bordetella Pertussis Not Detected (Not Detect); Chlamydophila pneumoniae Not Detected (Not Detect); Coronavirus 229E Not Detected (Not Detect); Coronavirus HKU1 Not Detected (Not Detect); Coronavirus NL63 Not Detected (Not Detect); Coronavirus OC43 Not Detected (Not Detect); Human Metapneumovirus Not Detected (Not Detect); Human Rhinovirus/Enterovirus Not Detected (Not Detect); Influenza A Subtype 2009 H1 Not Detected (Not Detect); Influenza B Not Detected (Not Detect); Mycoplasma pneumoniae Not Detected (Not Detect); Parainfluenza Virus 1 Not Detected (Not Detect); Parainfluenza Virus 2 Not Detected (Not Detect); Parainfluenza Virus 3 Not Detected (Not Detect); Parainfluenza Virus 4 Not Detected (Not Detect); Respiratory Syncytial Virus Not Detected (Not Detect); SARS-CoV-2 Not Detected (Not Detect)
[2020-08-11] MEDS ORDERED: Naloxone 0.4 MG/ML INJ IVP PRN (02:11)
[2020-08-11] MEDS ORDERED: *HR* Dextrose 50 % in Water (Vial) 50 ML VIAL IVP PRN (05:09)
[2020-08-11] MEDS ORDERED: Dextrose Gel 15 GM/37.5 ML TUBE PO PRN ×2 (05:09)
[2020-08-11] MEDS ORDERED: D5% in Water 1,000 ML IVC PRN (05:09)
[2020-08-11 05:17] LABS: Hematocrit 34.9 % (37.5-50.1); Hemoglobin 11.2 g/dL (12.9-16.9); Mean Corpuscular HGB Conc 32.1 g/dL (31.6-35.5); Mean Corpuscular Volume 99.7 fL (83.0-100.0); Mean Platelet Volume 9.3 fL (9.4-12.4); Platelet Count 276 K/mcL (140-400); Red Cell Distribution Width 13.7 % (11.5-14.5); White Blood Count 14.4 K/mcL (4.3-11.1)
[2020-08-11 05:38] LABS: BUN/Creatinine Ratio 17 (6-26); Blood Urea Nitrogen 19 mg/dL (8-23); Calcium 8.3 mg/dL (8.6-10.3); Carbon Dioxide 30 mEq/L (23-29); Chloride 97 mEq/L (98-107); Glucose 188 mg/dL (70-105); Osmolality,Calculated 285 (280-300); Potassium 3.8 mEq/L (3.5-5.1); Sodium 134 mEq/L (136-145); eGFR For African Americans > 60 (> 60); eGFR For Non-African Americans > 60 (> 60)
[2020-08-11] MEDS: Furosemide 20 MG/2 ML VIAL IVP SCH ×2 (06:11→08:33)
[2020-08-11] MEDS ORDERED: Perflutren Lipid Microsphere 1.3 ML in 0.9 % Sodium Chloride 8.7 ML IVP PRN (06:44)
[2020-08-11] MEDS: Insulin LISPRO 300 UNITS/3 ML VIAL SUBQ SCH ×3 (08:45→17:17)
[2020-08-11] MEDS ORDERED: lisinopriL 5 MG TABLET PO SCH (09:00)
[2020-08-11] MEDS: *HR* HYDROcodone/Acet 10/325 mg TABLET PO PRN ×2 (10:53→23:03)
[2020-08-11] MEDS: Piperacillin/Tazobactam 3.375 GM in 0.9 % Sodium Chloride Mini Bag 100 ML IVPB SCH ×3 (10:54→21:04)
[2020-08-11] MEDS ORDERED: Vancomycin 2,000 MG/520 ML IV.SOLN IVPB SCH (11:00)
[2020-08-11] MEDS ORDERED: Vancomycin 1,750 MG in 0.9 % Sodium Chloride 250 ML IVPB SCH (11:00)
[2020-08-11] MEDS: *HR* Rivaroxaban 15 MG TABLET PO SCH (17:15)
[2020-08-11] MEDS ORDERED: Azithromycin 500 MG in 0.9 % Sodium Chloride 250 ML IVPB SCH (21:00)
[2020-08-11] MEDS ORDERED: cefTRIAXone 1,000 MG in Water for inj. (sterile) 10 ML IVP SCH (21:00)
[2020-08-11] MEDS ORDERED: Furosemide 40 MG/4 ML VIAL IVP SCH (21:00)
[2020-08-11] MEDS: Ondansetron 4 MG/2 ML VIAL IVP PRN (23:03)
[2020-08-12] MEDS: Piperacillin/Tazobactam 3.375 GM in 0.9 % Sodium Chloride Mini Bag 100 ML IVPB SCH ×4 (01:34→23:20)
[2020-08-12 03:28] LABS: Basophils % 0.3 %; Eosinophils # 0.3 K/mcL (0.0-0.6); Eosinophils % 2.6 %; Hematocrit 30.8 % (37.5-50.1); Hemoglobin 9.8 g/dL (12.9-16.9); Immature Granulocytes % 1.1 % (0-4); Lymphocytes # 1.7 K/mcL (0.6-4.6); Lymphocytes % 13.9 %; Mean Corpuscular HGB Conc 31.8 g/dL (31.6-35.5); Mean Corpuscular Hemoglobin 31.7 pg (28.0-33.3); Mean Corpuscular Volume 99.7 fL (83.0-100.0); Monocytes # 2.2 K/mcL (0.0-1.3); Monocytes % 18.2 %; Neutrophils # 7.7 K/mcL (1.6-8.9); Platelet Count 263 K/mcL (140-400); Red Blood Count 3.09 M/mcL (4.19-5.50); Red Cell Distribution Width 14.1 % (11.5-14.5); Segmented Neutrophils % 63.9 %
[2020-08-12 03:45] LABS: Magnesium 1.7 mg/dL (1.6-2.6); Phosphorous 4.4 mg/dL (2.7-4.5); Potassium 4.2 mEq/L (3.5-5.1)
[2020-08-12 04:09] LABS: Anisocytosis 1+ (Not Present); Estimated Average Glucose 154 mg/dl; Large Platelets Present (Not Present); Platelet Estimate Normal (Normal)
[2020-08-12] MEDS: *HR* HYDROcodone/Acet 10/325 mg TABLET PO PRN ×2 (06:48→20:19)
[2020-08-12] MEDS: Ondansetron 4 MG/2 ML VIAL IVP PRN (06:48)
[2020-08-12] MEDS: Magnesium Oxide 400 MG TABLET PO SCH (08:58)
[2020-08-12] MEDS: Insulin LISPRO 300 UNITS/3 ML VIAL SUBQ SCH ×3 (11:24→16:38)
[2020-08-12] MEDS ORDERED: Vancomycin 1,750 MG/517.5 ML IV.SOLN IVPB SCH (12:00)
[2020-08-12] MEDS: *HR* Rivaroxaban 15 MG TABLET PO SCH (17:33)
[2020-08-13 04:27] LABS: Basophils % 0.3 %; Eosinophils # 0.3 K/mcL (0.0-0.6); Hematocrit 28.7 % (37.5-50.1); Immature Granulocytes % 1.4 % (0-4); Lymphocytes # 1.6 K/mcL (0.6-4.6); Mean Corpuscular HGB Conc 31.4 g/dL (31.6-35.5); Mean Platelet Volume 9.3 fL (9.4-12.4); Monocytes # 1.5 K/mcL (0.0-1.3); Monocytes % 12.9 %; Neutrophils # 7.7 K/mcL (1.6-8.9); Platelet Count 291 K/mcL (140-400); Red Cell Distribution Width 13.8 % (11.5-14.5); Segmented Neutrophils % 68.4 %; White Blood Count 11.3 K/mcL (4.3-11.1)
[2020-08-13 04:49] LABS: Calcium 8.1 mg/dL (8.6-10.3); Magnesium 1.9 mg/dL (1.6-2.6); Potassium 4.3 mEq/L (3.5-5.1)
[2020-08-13 05:10] LABS: Folate > 22.3 ng/mL (3.0-16.0)
[2020-08-13 05:14] LABS: Vitamin B12 302 pg/mL (250-1100)
[2020-08-13] MEDS: Piperacillin/Tazobactam 3.375 GM in 0.9 % Sodium Chloride Mini Bag 100 ML IVPB SCH (08:04)
[2020-08-13] MEDS: Magnesium Oxide 400 MG TABLET PO SCH (08:05)
[2020-08-13] MEDS: *HR* HYDROcodone/Acet 10/325 mg TABLET PO PRN ×2 (08:18→21:10)
[2020-08-13] MEDS: Insulin LISPRO 300 UNITS/3 ML VIAL SUBQ SCH ×3 (08:18→16:30)
[2020-08-13] MEDS ORDERED: 0.9 % Sodium Chloride 1,000 ML IVC SCH (08:45)
[2020-08-13] MEDS: Sennosides/Docusate Sodium TABLET PO SCH ×2 (11:51→21:07)
[2020-08-13] MEDS: Calcium Acetate 667 MG CAPSULE PO SCH ×2 (11:52→16:29)
[2020-08-13 14:16] LABS: Amorphous Sediment,Urine Few per hpf (None-Few); Bacteria,Urine Few per hpf (None-Few); Bilirubin,Urine Negative (Negative); Blood,Urine Large (Negative); Clarity,Urine Ex.Turbid (Clear); Color,Urine Yellow (Yellow); Glucose,Urine (UA) Normal (Normal); Ketones,Urine Negative (Negative); Leukocyte Esterase,Urine Large (Negative); Mucus,Urine Few per lpf (None-Few); Nitrite,Urine Negative (Negative); PH,Urine 5.5 pH Units (5.0-8.0); Protein,Urine 70 mg/dL (Neg-Trace); RBC,Urine TNTC per hpf (0-3); Specific Gravity,Urine 1.022 (1.010-1.025); Squamous Epithelial Cell,Urine Few per hpf (None-Few); Urobilinogen,Urine Normal (Normal); WBC,Urine 50-100 per hpf (0-3)
[2020-08-13] MEDS: *HR* Rivaroxaban 15 MG TABLET PO SCH (16:29)
[2020-08-13 17:15] LABS: Uric Acid 7.2 mg/dL (2.3-7.6)
[2020-08-14] MEDS: Piperacillin/Tazobactam 3.375 GM in 0.9 % Sodium Chloride Mini Bag 100 ML IVPB SCH ×5 (00:09→18:38)
[2020-08-14 04:32] LABS: Basophils % 0.4 %; Eosinophils # 0.5 K/mcL (0.0-0.6); Eosinophils % 4.6 %; Hematocrit 30.9 % (37.5-50.1); Immature Granulocytes % 1.3 % (0-4); Lymphocytes # 1.3 K/mcL (0.6-4.6); Lymphocytes % 12.5 %; Mean Corpuscular HGB Conc 32.4 g/dL (31.6-35.5); Mean Corpuscular Hemoglobin 31.7 pg (28.0-33.3); Mean Corpuscular Volume 98.1 fL (83.0-100.0); Mean Platelet Volume 8.9 fL (9.4-12.4); Monocytes # 1.2 K/mcL (0.0-1.3); Monocytes % 11.9 %; Neutrophils # 7.1 K/mcL (1.6-8.9); Platelet Count 350 K/mcL (140-400); Red Blood Count 3.15 M/mcL (4.19-5.50); Red Cell Distribution Width 13.5 % (11.5-14.5); Segmented Neutrophils % 69.3 %; White Blood Count 10.2 K/mcL (4.3-11.1)
[2020-08-14 04:41] LABS: Calcium 8.1 mg/dL (8.6-10.3); Magnesium 2.1 mg/dL (1.6-2.6); Phosphorous 4.4 mg/dL (2.7-4.5); Potassium 4.3 mEq/L (3.5-5.1)
[2020-08-14] MEDS: Ipratropium/Albuterol Neb 3 ML IH PRN ×2 (06:03→20:17)
[2020-08-14] MEDS ORDERED: Furosemide 40 MG/4 ML VIAL IVP ONE (06:08)
[2020-08-14] MEDS: Magnesium Oxide 400 MG TABLET PO SCH (07:51)
[2020-08-14] MEDS: Calcium Acetate 667 MG CAPSULE PO SCH ×3 (07:51→16:47)
[2020-08-14] MEDS: Sennosides/Docusate Sodium TABLET PO SCH (07:51)
[2020-08-14] MEDS: Insulin LISPRO 300 UNITS/3 ML VIAL SUBQ SCH ×3 (07:52→18:38)
[2020-08-14] MEDS ORDERED: Albumin 25% 25gram/100mL 25 GM/100 ML IV.SOLN IVPB ONE (08:26)
[2020-08-14] MEDS ORDERED: Furosemide 20 MG/2 ML VIAL IVP PRN (10:07)
[2020-08-14] MEDS ORDERED: Sennosides/Docusate Sodium TABLET PO PRN (10:12)
[2020-08-14] MEDS: Albumin 25% 25gram/100mL 25 GM/100 ML IV.SOLN IVPB SCH ×2 (16:44→23:10)
[2020-08-14] MEDS: *HR* Rivaroxaban 15 MG TABLET PO SCH (16:47)
[2020-08-14] MEDS: *HR* HYDROcodone/Acet 10/325 mg TABLET PO PRN (21:44)
[2020-08-15] MEDS: Piperacillin/Tazobactam 3.375 GM in 0.9 % Sodium Chloride Mini Bag 100 ML IVPB SCH ×4 (01:06→23:47)
[2020-08-15] MEDS: Ipratropium/Albuterol Neb 3 ML IH PRN ×2 (03:36→07:30)
[2020-08-15 06:54] LABS: BUN/Creatinine Ratio 23 (6-26); Blood Urea Nitrogen 31 mg/dL (8-23); Carbon Dioxide 28 mEq/L (23-29); Chloride 99 mEq/L (98-107); Glucose 192 mg/dL (70-105); Magnesium 1.9 mg/dL (1.6-2.6); Osmolality,Calculated 298 (280-300); Phosphorous 2.8 mg/dL (2.7-4.5); Sodium 138 mEq/L (136-145); eGFR For African Americans > 60 (> 60); eGFR For Non-African Americans 51 (> 60)
[2020-08-15] MEDS: Magnesium Oxide 400 MG TABLET PO SCH (08:15)
[2020-08-15] MEDS: Calcium Acetate 667 MG CAPSULE PO SCH ×5 (08:15→17:06)
[2020-08-15] MEDS: Albumin 25% 25gram/100mL 25 GM/100 ML IV.SOLN IVPB SCH ×3 (08:15→23:47)
[2020-08-15] MEDS: Insulin LISPRO 300 UNITS/3 ML VIAL SUBQ SCH ×3 (08:16→16:58)
[2020-08-15] MEDS: amLODIPine 5 MG TABLET PO SCH (12:00)
[2020-08-15] MEDS ORDERED: Azithromycin 500 MG in 0.9 % Sodium Chloride 250 ML IVPB SCH (14:00)
[2020-08-15] MEDS ORDERED: SODIUM CHLORIDE/NAHCO3/KCL/PEG 4,000 ML SOLN.RECON PO ONE (17:00)
[2020-08-16] MEDS: Ipratropium/Albuterol Neb 3 ML IH PRN ×4 (02:25→19:42)
[2020-08-16 06:20] LABS: Basophils % 0.4 %; Eosinophils # 0.2 K/mcL (0.0-0.6); Eosinophils % 2.1 %; Hematocrit 30.3 % (37.5-50.1); Hemoglobin 9.6 g/dL (12.9-16.9); Immature Granulocytes % 0.6 % (0-4); Lymphocytes % 8.8 %; Mean Corpuscular HGB Conc 31.7 g/dL (31.6-35.5); Mean Corpuscular Volume 97.7 fL (83.0-100.0); Mean Platelet Volume 8.8 fL (9.4-12.4); Monocytes # 1.2 K/mcL (0.0-1.3); Monocytes % 11.3 %; Neutrophils # 8.3 K/mcL (1.6-8.9); Platelet Count 411 K/mcL (140-400); Red Cell Distribution Width 13.1 % (11.5-14.5); Segmented Neutrophils % 76.8 %; White Blood Count 10.8 K/mcL (4.3-11.1)
[2020-08-16 06:36] LABS: BUN/Creatinine Ratio 19 (6-26); Blood Urea Nitrogen 18 mg/dL (8-23); Calcium 8.9 mg/dL (8.6-10.3); Carbon Dioxide 30 mEq/L (23-29); Chloride 97 mEq/L (98-107); Glucose 175 mg/dL (70-105); Magnesium 1.8 mg/dL (1.6-2.6); Osmolality,Calculated 290 (280-300); Phosphorous 2.5 mg/dL (2.7-4.5); Potassium 3.5 mEq/L (3.5-5.1); Sodium 137 mEq/L (136-145); eGFR For African Americans > 60 (> 60); eGFR For Non-African Americans > 60 (> 60)
[2020-08-16] MEDS ORDERED: Furosemide 20 MG/2 ML VIAL IVP SCH (09:00)
[2020-08-16] MEDS: Insulin LISPRO 300 UNITS/3 ML VIAL SUBQ SCH ×3 (09:05→17:02)
[2020-08-16] MEDS: amLODIPine 5 MG TABLET PO SCH (09:06)
[2020-08-16] MEDS: Albumin 25% 25gram/100mL 25 GM/100 ML IV.SOLN IVPB SCH ×2 (09:06→17:01)
[2020-08-16] MEDS: Piperacillin/Tazobactam 3.375 GM in 0.9 % Sodium Chloride Mini Bag 100 ML IVPB SCH (09:07)
[2020-08-16] MEDS: Furosemide 20 MG/2 ML VIAL IVP SCH (09:07)
[2020-08-16] MEDS: Calcium Acetate 667 MG CAPSULE PO SCH ×3 (09:07→16:47)
[2020-08-16] MEDS: Magnesium Oxide 400 MG TABLET PO SCH (09:08)
[2020-08-16] MEDS ORDERED: Lidocaine -MPF 2% 2 ML VIAL ONE (13:24)
[2020-08-17] MEDS: *HR* HYDROcodone/Acet 10/325 mg TABLET PO PRN (00:46)
[2020-08-17] MEDS: Albumin 25% 25gram/100mL 25 GM/100 ML IV.SOLN IVPB SCH ×4 (00:51→23:45)
[2020-08-17] MEDS: Ipratropium/Albuterol Neb 3 ML IH PRN (03:39)
[2020-08-17 06:27] LABS: Basophils % 0.3 %; Eosinophils # 0.2 K/mcL (0.0-0.6); Eosinophils % 1.3 %; Hematocrit 29.6 % (37.5-50.1); Hemoglobin 9.7 g/dL (12.9-16.9); Immature Granulocytes % 0.5 % (0-4); Lymphocytes % 8.8 %; Mean Corpuscular HGB Conc 32.8 g/dL (31.6-35.5); Mean Corpuscular Hemoglobin 31.9 pg (28.0-33.3); Mean Corpuscular Volume 97.4 fL (83.0-100.0); Mean Platelet Volume 8.6 fL (9.4-12.4); Monocytes # 1.2 K/mcL (0.0-1.3); Monocytes % 10.1 %; Neutrophils # 9.4 K/mcL (1.6-8.9); Platelet Count 371 K/mcL (140-400); Red Blood Count 3.04 M/mcL (4.19-5.50); Red Cell Distribution Width 13.1 % (11.5-14.5); White Blood Count 11.9 K/mcL (4.3-11.1)
[2020-08-17 06:48] LABS: BUN/Creatinine Ratio 17 (6-26); Blood Urea Nitrogen 16 mg/dL (8-23); Calcium 8.9 mg/dL (8.6-10.3); Carbon Dioxide 32 mEq/L (23-29); Chloride 96 mEq/L (98-107); Glucose 157 mg/dL (70-105); Magnesium 1.7 mg/dL (1.6-2.6); Osmolality,Calculated 288 (280-300); Phosphorous 2.6 mg/dL (2.7-4.5); Potassium 3.7 mEq/L (3.5-5.1); Sodium 137 mEq/L (136-145); eGFR For African Americans > 60 (> 60); eGFR For Non-African Americans > 60 (> 60)
[2020-08-17] MEDS: Ipratropium/Albuterol Neb 3 ML IH SCH ×6 (07:45→23:18)
[2020-08-17] MEDS: Calcium Acetate 667 MG CAPSULE PO SCH ×3 (07:53→17:03)
[2020-08-17] MEDS: Magnesium Oxide 400 MG TABLET PO SCH (07:53)
[2020-08-17] MEDS: Furosemide 20 MG/2 ML VIAL IVP SCH (07:54)
[2020-08-17] MEDS: amLODIPine 5 MG TABLET PO SCH (07:54)
[2020-08-17] MEDS: Insulin LISPRO 300 UNITS/3 ML VIAL SUBQ SCH ×3 (07:55→17:03)
[2020-08-17 12:05] LABS: ABG Base Excess 6 mEq/L (-2 to 3); ABG HCO3 33 mEq/L (21-27); ABG Oxygen Saturation 94 % (95-98); ABG PCO2 59 mmHg (35-45); ABG PH 7.35 pH Units (7.32-7.45); ABG PO2 79 mmHg (85-104); ABG TCO2 34 mEq/L (20-26)
[2020-08-17] MEDS: Melatonin 3 MG TABLET PO SCH (21:25)
[2020-08-18] MEDS: Ipratropium/Albuterol Neb 3 ML IH SCH ×6 (03:10→23:00)
[2020-08-18 04:56] LABS: Basophils % 0.3 %; Eosinophils # 0.2 K/mcL (0.0-0.6); Eosinophils % 1.9 %; Hematocrit 28.3 % (37.5-50.1); Hemoglobin 8.9 g/dL (12.9-16.9); Immature Granulocytes % 0.5 % (0-4); Lymphocytes # 1.1 K/mcL (0.6-4.6); Lymphocytes % 9.5 %; Mean Corpuscular HGB Conc 31.4 g/dL (31.6-35.5); Mean Corpuscular Hemoglobin 30.9 pg (28.0-33.3); Mean Corpuscular Volume 98.3 fL (83.0-100.0); Mean Platelet Volume 8.7 fL (9.4-12.4); Monocytes # 1.5 K/mcL (0.0-1.3); Monocytes % 12.6 %; Neutrophils # 8.9 K/mcL (1.6-8.9); Platelet Count 382 K/mcL (140-400); Red Blood Count 2.88 M/mcL (4.19-5.50); Red Cell Distribution Width 12.8 % (11.5-14.5); Segmented Neutrophils % 75.2 %; White Blood Count 11.9 K/mcL (4.3-11.1)
[2020-08-18 05:10] LABS: BUN/Creatinine Ratio 20 (6-26); Blood Urea Nitrogen 21 mg/dL (8-23); Calcium 9.3 mg/dL (8.6-10.3); Carbon Dioxide 36 mEq/L (23-29); Chloride 94 mEq/L (98-107); Glucose 181 mg/dL (70-105); Magnesium 1.9 mg/dL (1.6-2.6); Osmolality,Calculated 292 (280-300); Potassium 3.6 mEq/L (3.5-5.1); Sodium 137 mEq/L (136-145); eGFR For African Americans > 60 (> 60); eGFR For Non-African Americans > 60 (> 60)
[2020-08-18] MEDS: amLODIPine 5 MG TABLET PO SCH (08:07)
[2020-08-18] MEDS: Calcium Acetate 667 MG CAPSULE PO SCH ×2 (08:07→12:22)
[2020-08-18] MEDS: Magnesium Oxide 400 MG TABLET PO SCH (08:07)
[2020-08-18] MEDS: Insulin LISPRO 300 UNITS/3 ML VIAL SUBQ SCH ×3 (08:08→17:31)
[2020-08-18] MEDS: Albumin 25% 25gram/100mL 25 GM/100 ML IV.SOLN IVPB SCH (08:08)
[2020-08-18] MEDS: Furosemide 20 MG TABLET PO SCH (08:08)
[2020-08-18] MEDS: Melatonin 3 MG TABLET PO SCH (21:50)
[2020-08-19] MEDS: Ipratropium/Albuterol Neb 3 ML IH SCH ×4 (03:30→16:02)
[2020-08-19 04:06] LABS: Basophils % 0.3 %; Eosinophils # 0.3 K/mcL (0.0-0.6); Eosinophils % 2.3 %; Hematocrit 30.2 % (37.5-50.1); Hemoglobin 9.8 g/dL (12.9-16.9); Immature Granulocytes % 0.4 % (0-4); Lymphocytes # 1.2 K/mcL (0.6-4.6); Lymphocytes % 9.8 %; Mean Corpuscular HGB Conc 32.5 g/dL (31.6-35.5); Mean Corpuscular Hemoglobin 31.4 pg (28.0-33.3); Mean Corpuscular Volume 96.8 fL (83.0-100.0); Mean Platelet Volume 8.5 fL (9.4-12.4); Monocytes # 1.5 K/mcL (0.0-1.3); Monocytes % 11.8 %; Neutrophils # 9.4 K/mcL (1.6-8.9); Platelet Count 435 K/mcL (140-400); Red Blood Count 3.12 M/mcL (4.19-5.50); Red Cell Distribution Width 12.9 % (11.5-14.5); Segmented Neutrophils % 75.4 %; White Blood Count 12.4 K/mcL (4.3-11.1)
[2020-08-19 04:25] LABS: Magnesium 2.1 mg/dL (1.6-2.6); Phosphorous 3.3 mg/dL (2.7-4.5)
[2020-08-19] MEDS: Magnesium Oxide 400 MG TABLET PO SCH (08:01)
[2020-08-19] MEDS: Furosemide 20 MG TABLET PO SCH (08:01)
[2020-08-19] MEDS: amLODIPine 5 MG TABLET PO SCH (08:01)
[2020-08-19] MEDS: Insulin LISPRO 300 UNITS/3 ML VIAL SUBQ SCH ×3 (08:01→16:15)
[2020-08-19 16:04] LABS: Adenovirus Not Detected (Not Detect); Bordetella Pertussis Not Detected (Not Detect); Chlamydophila pneumoniae Not Detected (Not Detect); Coronavirus 229E Not Detected (Not Detect); Coronavirus HKU1 Not Detected (Not Detect); Coronavirus NL63 Not Detected (Not Detect); Coronavirus OC43 Not Detected (Not Detect); Human Metapneumovirus Not Detected (Not Detect); Human Rhinovirus/Enterovirus Not Detected (Not Detect); Influenza A Subtype 2009 H1 Not Detected (Not Detect); Influenza B Not Detected (Not Detect); Mycoplasma pneumoniae Not Detected (Not Detect); Parainfluenza Virus 1 Not Detected (Not Detect); Parainfluenza Virus 2 Not Detected (Not Detect); Parainfluenza Virus 3 Not Detected (Not Detect); Parainfluenza Virus 4 Not Detected (Not Detect); Respiratory Syncytial Virus Not Detected (Not Detect); SARS-CoV-2 Not Detected (Not Detect)
[2020-08-19 18:34] VITALS: BP 173/78
== END 2020-08-19 19:13 | disposition critical access hospital (66) | DRG 291 ==
LOC: EMEROOARM 22:44 → 3ANU 22:44 → SUATTDRO 08-11 02:06 → 3ANU 08-11 03:38 → SUATTDRO 08-12 16:08
PROVIDERS: ADMIT Student in an Organized Health Care Education/Training Program; ATTEND Internal Medicine
PROC: ENDOEBX (2020-08-16 10:10)

== ENCOUNTER 2021-08-05 17:27 | Inpatient (IN) ==
[2021-08-05] MEDS ORDERED: Clindamycin 600 MG/50 ML 600 MG/50 ML IV.SOLN IVPB STA (18:15)
[2021-08-05] MEDS ORDERED: *HR* HYDROcodone/Acet 5/325 mg TABLET PO ONE (18:15)
[2021-08-05 18:52] LABS: Basophils % 0.2 %; Eosinophils % 0.3 %; Hematocrit 26.3 % (37.5-50.1); Hemoglobin 8.3 g/dL (12.9-16.9); Immature Granulocytes % 0.3 % (0-4); Lymphocytes # 1.4 K/mcL (0.6-4.6); Lymphocytes % 11.1 %; Mean Corpuscular HGB Conc 31.6 g/dL (31.6-35.5); Mean Corpuscular Hemoglobin 31.7 pg (28.0-33.3); Mean Corpuscular Volume 100.4 fL (83.0-100.0); Mean Platelet Volume 8.5 fL (9.4-12.4); Monocytes # 1.8 K/mcL (0.0-1.3); Monocytes % 14.2 %; Neutrophils # 9.2 K/mcL (1.6-8.9); Platelet Count 584 K/mcL (140-400); Red Blood Count 2.62 M/mcL (4.19-5.50); Red Cell Distribution Width 13.7 % (11.5-14.5); Segmented Neutrophils % 73.9 %; White Blood Count 12.4 K/mcL (4.3-11.1)
[2021-08-05 19:18] LABS: Alanine Aminotransferase 9 Units/L (7-52); Albumin 3.6 g/dL (3.5-5.7); Alkaline Phosphatase 74 Units/L (34-104); Aspartate Amino Transferase 12 Units/L (13-39); BUN/Creatinine Ratio 16 (6-26); Bilirubin,Direct 0.1 mg/dL (0.0-0.2); Bilirubin,Indirect 0.5 mg/dL (0.0-1.0); Bilirubin,Total 0.6 mg/dL (0.3-1.0); Blood Urea Nitrogen 19 mg/dL (8-23); Calcium 8.7 mg/dL (8.6-10.3); Carbon Dioxide 30 mEq/L (23-29); Chloride 99 mEq/L (98-107); Globulin 3.7 g/dL (2.4-3.5); Glucose 133 mg/dL (70-105); Osmolality,Calculated 282 (280-300); Potassium 4.4 mEq/L (3.5-5.1); Sodium 134 mEq/L (136-145); Total Protein 7.3 g/dL (6.4-8.9); eGFR For African Americans > 60 (> 60); eGFR For Non-African Americans 57 (> 60)
[2021-08-05 19:28] LABS: Influenza A PCR Negative (Negative); Influenza B PCR Negative (Negative); Resp. Syncytial Virus PCR Negative (Negative)
[2021-08-05 19:31] LABS: SARS-CoV-2 by PCR (In House) Negative (Negative)
[2021-08-05] MEDS ORDERED: *HR* HYDROcodone/Acet 10/325 mg TABLET PO ONE (22:45)
[2021-08-06] MEDS ORDERED: Naloxone 0.4 MG/ML INJ IVP PRN (00:06)
[2021-08-06] MEDS ORDERED: Melatonin 3 MG TABLET PO PRN (00:06)
[2021-08-06] MEDS ORDERED: Ondansetron 4 MG/2 ML VIAL IVP PRN (00:06)
[2021-08-06] MEDS ORDERED: D5% in Water 1,000 ML IVC PRN (00:21)
[2021-08-06] MEDS ORDERED: Dextrose Gel 15 GM/37.5 ML TUBE PO PRN ×2 (00:21)
[2021-08-06] MEDS ORDERED: *HR* Dextrose 50 % in Water (Syg) 50 ML SYRINGE IVP PRN (00:21)
[2021-08-06 02:39] LABS: Hematocrit 24.4 % (37.5-50.1); Hemoglobin 7.5 g/dL (12.9-16.9); Mean Corpuscular HGB Conc 30.7 g/dL (31.6-35.5); Mean Corpuscular Hemoglobin 31.6 pg (28.0-33.3); Mean Platelet Volume 8.7 fL (9.4-12.4); Platelet Count 506 K/mcL (140-400); Red Blood Count 2.37 M/mcL (4.19-5.50); Red Cell Distribution Width 13.8 % (11.5-14.5); White Blood Count 9.8 K/mcL (4.3-11.1)
[2021-08-06] MEDS ORDERED: Vancomycin 1,750 MG/517.5 ML IV.SOLN IVPB ONE (03:00)
[2021-08-06] MEDS ORDERED: Vancomycin 1,750 MG in 0.9 % Sodium Chloride 250 ML IVPB SCH (03:00)
[2021-08-06 03:02] LABS: BUN/Creatinine Ratio 16 (6-26); Blood Urea Nitrogen 18 mg/dL (8-23); Calcium 8.2 mg/dL (8.6-10.3); Carbon Dioxide 24 mEq/L (23-29); Chloride 101 mEq/L (98-107); Glucose 123 mg/dL (70-105); Osmolality,Calculated 281 (280-300); Sodium 134 mEq/L (136-145); eGFR For African Americans > 60 (> 60); eGFR For Non-African Americans > 60 (> 60)
[2021-08-06 04:58] LABS: Folate > 22.3 ng/mL (3.0-16.0); Vitamin B12 314 pg/mL (250-1100)
[2021-08-06 05:00] LABS: Ferritin 150 ng/mL (20-250); Iron 14 mcg/dL (65-175)
[2021-08-06 05:06] LABS: % Iron Saturation 5 % (20-55); Transferrin 205 mg/dL (203-362)
[2021-08-06] MEDS: Insulin LISPRO 300 UNITS/3 ML VIAL SUBQ SCH ×3 (08:24→16:53)
[2021-08-06] MEDS: Cyanocobalamin (B-12) 1,000 MCG TABLET PO SCH (12:38)
[2021-08-06] MEDS: Furosemide 20 MG TABLET PO SCH (14:45)
[2021-08-06] MEDS: *HR* HYDROcodone/Acet 10/325 mg TABLET PO PRN (14:51)
[2021-08-06 15:35] LABS: Hematocrit 25.7 % (37.5-50.1); Hemoglobin 7.9 g/dL (12.9-16.9)
[2021-08-06] MEDS ORDERED: Vancomycin 1,250 MG/262.5 ML IV.SOLN IVPB SCH (16:00)
[2021-08-07] MEDS: *HR* HYDROcodone/Acet 10/325 mg TABLET PO PRN (01:02)
[2021-08-07] MEDS: Vancomycin 1,750 MG/517.5 ML IV.SOLN IVPB SCH (04:29)
[2021-08-07 05:45] LABS: Basophils # 0.1 K/mcL (0.0-0.2); Basophils % 0.5 %; Eosinophils # 0.2 K/mcL (0.0-0.6); Eosinophils % 1.8 %; Hematocrit 23.8 % (37.5-50.1); Hemoglobin 7.4 g/dL (12.9-16.9); Immature Granulocytes % 0.4 % (0-4); Lymphocytes # 1.9 K/mcL (0.6-4.6); Lymphocytes % 20.2 %; Mean Corpuscular HGB Conc 31.1 g/dL (31.6-35.5); Mean Corpuscular Hemoglobin 31.6 pg (28.0-33.3); Mean Corpuscular Volume 101.7 fL (83.0-100.0); Mean Platelet Volume 8.7 fL (9.4-12.4); Monocytes # 1.5 K/mcL (0.0-1.3); Monocytes % 16.4 %; Neutrophils # 5.7 K/mcL (1.6-8.9); Platelet Count 534 K/mcL (140-400); Red Blood Count 2.34 M/mcL (4.19-5.50); Red Cell Distribution Width 13.7 % (11.5-14.5); Segmented Neutrophils % 60.7 %; White Blood Count 9.4 K/mcL (4.3-11.1)
[2021-08-07 06:06] LABS: BUN/Creatinine Ratio 19 (6-26); Blood Urea Nitrogen 22 mg/dL (8-23); Calcium 8.3 mg/dL (8.6-10.3); Carbon Dioxide 27 mEq/L (23-29); Chloride 102 mEq/L (98-107); Glucose 150 mg/dL (70-105); Osmolality,Calculated 286 (280-300); Sodium 135 mEq/L (136-145); eGFR For African Americans > 60 (> 60); eGFR For Non-African Americans > 60 (> 60)
[2021-08-07] MEDS: Cefepime HCl 1,000 MG in 0.9 % Sodium Chloride Mini Bag 100 ML IVP SCH ×2 (10:05→17:43)
[2021-08-07] MEDS: Cyanocobalamin (B-12) 1,000 MCG TABLET PO SCH (10:06)
[2021-08-07] MEDS: Furosemide 20 MG TABLET PO SCH (10:07)
[2021-08-07] MEDS: Magnesium Oxide 400 MG TABLET PO SCH (10:07)
[2021-08-07] MEDS: Insulin LISPRO 300 UNITS/3 ML VIAL SUBQ SCH ×3 (10:08→17:43)
[2021-08-07 11:01] LABS: C-Reactive Protein 116 mg/L (Less than 10)
[2021-08-07] MEDS: Iron Sucrose Complex 250 MG in 0.9 % Sodium Chloride 250 ML IVPB SCH (12:28)
[2021-08-07 14:37] LABS: Hemoglobin 7.6 g/dL (12.9-16.9)
[2021-08-08] MEDS: *HR* HYDROcodone/Acet 10/325 mg TABLET PO PRN ×2 (00:20→11:36)
[2021-08-08 03:12] LABS: Basophils % 0.4 %; Eosinophils # 0.3 K/mcL (0.0-0.6); Eosinophils % 3.4 %; Hematocrit 23.7 % (37.5-50.1); Hemoglobin 7.6 g/dL (12.9-16.9); Immature Granulocytes % 0.3 % (0-4); Lymphocytes # 1.6 K/mcL (0.6-4.6); Lymphocytes % 17.5 %; Mean Corpuscular HGB Conc 32.1 g/dL (31.6-35.5); Mean Corpuscular Hemoglobin 31.9 pg (28.0-33.3); Mean Corpuscular Volume 99.6 fL (83.0-100.0); Mean Platelet Volume 8.5 fL (9.4-12.4); Monocytes # 1.6 K/mcL (0.0-1.3); Monocytes % 17.2 %; Neutrophils # 5.6 K/mcL (1.6-8.9); Platelet Count 516 K/mcL (140-400); Red Blood Count 2.38 M/mcL (4.19-5.50); Red Cell Distribution Width 13.7 % (11.5-14.5); Segmented Neutrophils % 61.2 %; White Blood Count 9.1 K/mcL (4.3-11.1)
[2021-08-08 03:25] LABS: BUN/Creatinine Ratio 20 (6-26); Blood Urea Nitrogen 22 mg/dL (8-23); C-Reactive Protein 98 mg/L (Less than 10); Calcium 8.1 mg/dL (8.6-10.3); Carbon Dioxide 26 mEq/L (23-29); Chloride 103 mEq/L (98-107); Glucose 157 mg/dL (70-105); Osmolality,Calculated 289 (280-300); Sodium 136 mEq/L (136-145); Vancomycin,Trough 11 mcg/mL (5-10); eGFR For African Americans > 60 (> 60); eGFR For Non-African Americans > 60 (> 60)
[2021-08-08] MEDS: Vancomycin 1,750 MG/517.5 ML IV.SOLN IVPB SCH (05:44)
[2021-08-08] MEDS: Cefepime HCl 1,000 MG in 0.9 % Sodium Chloride Mini Bag 100 ML IVP SCH ×2 (07:18→17:32)
[2021-08-08] MEDS: Furosemide 20 MG TABLET PO SCH (08:05)
[2021-08-08] MEDS: Magnesium Oxide 400 MG TABLET PO SCH (08:05)
[2021-08-08] MEDS: Cyanocobalamin (B-12) 1,000 MCG TABLET PO SCH (08:05)
[2021-08-08] MEDS: Insulin LISPRO 300 UNITS/3 ML VIAL SUBQ SCH ×3 (08:09→17:32)
[2021-08-08] MEDS: Iron Sucrose Complex 250 MG in 0.9 % Sodium Chloride 250 ML IVPB SCH (10:08)
[2021-08-08 22:31] VITALS: PULSE 78
[2021-08-09] MEDS: *HR* HYDROcodone/Acet 10/325 mg TABLET PO PRN (00:16)
[2021-08-09] MEDS: Vancomycin 1,750 MG/517.5 ML IV.SOLN IVPB SCH (05:18)
[2021-08-09] MEDS: Cefepime HCl 1,000 MG in 0.9 % Sodium Chloride Mini Bag 100 ML IVP SCH (05:19)
[2021-08-09 06:37] LABS: Basophils # 0.1 K/mcL (0.0-0.2); Basophils % 0.5 %; Eosinophils # 0.2 K/mcL (0.0-0.6); Eosinophils % 2.4 %; Hematocrit 24.5 % (37.5-50.1); Hemoglobin 7.5 g/dL (12.9-16.9); Immature Granulocytes % 0.4 % (0-4); Lymphocytes # 1.5 K/mcL (0.6-4.6); Lymphocytes % 15.6 %; Mean Corpuscular HGB Conc 30.6 g/dL (31.6-35.5); Mean Corpuscular Hemoglobin 31.3 pg (28.0-33.3); Mean Corpuscular Volume 102.1 fL (83.0-100.0); Mean Platelet Volume 8.6 fL (9.4-12.4); Monocytes # 1.7 K/mcL (0.0-1.3); Neutrophils # 6.1 K/mcL (1.6-8.9); Platelet Count 542 K/mcL (140-400); Red Cell Distribution Width 13.8 % (11.5-14.5); Segmented Neutrophils % 63.1 %; White Blood Count 9.6 K/mcL (4.3-11.1)
[2021-08-09 07:02] LABS: BUN/Creatinine Ratio 21 (6-26); Blood Urea Nitrogen 23 mg/dL (8-23); Calcium 8.4 mg/dL (8.6-10.3); Carbon Dioxide 28 mEq/L (23-29); Chloride 103 mEq/L (98-107); Glucose 163 mg/dL (70-105); Osmolality,Calculated 289 (280-300); Potassium 4.1 mEq/L (3.5-5.1); Sodium 136 mEq/L (136-145); eGFR For African Americans > 60 (> 60); eGFR For Non-African Americans > 60 (> 60)
[2021-08-09 07:06] VITALS: BP 148/65; TEMP 98.2; O2SAT 93
[2021-08-09] MEDS: Insulin LISPRO 300 UNITS/3 ML VIAL SUBQ SCH (07:38)
[2021-08-09] MEDS: Iron Sucrose Complex 250 MG in 0.9 % Sodium Chloride 250 ML IVPB SCH (09:12)
[2021-08-09] MEDS: Magnesium Oxide 400 MG TABLET PO SCH (09:13)
[2021-08-09] MEDS: Cyanocobalamin (B-12) 1,000 MCG TABLET PO SCH (09:13)
[2021-08-09] MEDS: Furosemide 20 MG TABLET PO SCH (09:13)
== END 2021-08-09 12:04 | disposition home health service (06) | DRG 603 ==
LOC: 3ANU 17:27 → EMEROOARM 17:27 → SUATTDRO 23:14 → 3ANU 08-06 00:08
PROVIDERS: ADMIT Student in an Organized Health Care Education/Training Program; ATTEND Student in an Organized Health Care Education/Training Program

== ENCOUNTER 2021-08-17 07:46 | Inpatient (IN) ==
[2021-08-17] MEDS ORDERED: Ondansetron 4 MG/2 ML VIAL IVP PRN (07:51)
[2021-08-17 09:23] LABS: Basophils % 0.5 %; Eosinophils # 0.2 K/mcL (0.0-0.6); Eosinophils % 2.5 %; Hematocrit 27.7 % (37.5-50.1); Hemoglobin 8.7 g/dL (12.9-16.9); Immature Granulocytes % 0.4 % (0-4); Lymphocytes # 1.5 K/mcL (0.6-4.6); Lymphocytes % 19.3 %; Mean Corpuscular HGB Conc 31.4 g/dL (31.6-35.5); Mean Corpuscular Hemoglobin 31.4 pg (28.0-33.3); Mean Platelet Volume 8.5 fL (9.4-12.4); Monocytes # 0.7 K/mcL (0.0-1.3); Monocytes % 8.2 %; Neutrophils # 5.4 K/mcL (1.6-8.9); Platelet Count 485 K/mcL (140-400); Red Blood Count 2.77 M/mcL (4.19-5.50); Segmented Neutrophils % 69.1 %; White Blood Count 7.9 K/mcL (4.3-11.1)
[2021-08-17 09:31] LABS: INR 1.2; Prothrombin Time 13.3 Seconds (9.4-12.1)
[2021-08-17 09:39] LABS: BUN/Creatinine Ratio 17 (6-26); Blood Urea Nitrogen 17 mg/dL (8-23); Calcium 9.2 mg/dL (8.6-10.3); Carbon Dioxide 31 mEq/L (23-29); Chloride 99 mEq/L (98-107); Glucose 164 mg/dL (70-105); Osmolality,Calculated 289 (280-300); Potassium 4.1 mEq/L (3.5-5.1); Sodium 137 mEq/L (136-145); eGFR For African Americans > 60 (> 60); eGFR For Non-African Americans > 60 (> 60)
[2021-08-17] MEDS: Furosemide 20 MG TABLET PO SCH (10:57)
[2021-08-17] MEDS ORDERED: D5% in Water 1,000 ML IVC PRN (11:07)
[2021-08-17] MEDS ORDERED: *HR* Dextrose 50 % in Water (Syg) 50 ML SYRINGE IVP PRN (11:07)
[2021-08-17] MEDS ORDERED: Dextrose Gel 15 GM/37.5 ML TUBE PO PRN ×2 (11:07)
[2021-08-17] MEDS: Insulin LISPRO 300 UNITS/3 ML VIAL SUBQ SCH ×2 (12:21→16:34)
[2021-08-17 15:18] LABS: Estimated Average Glucose 120 mg/dl; Hemoglobin A1C 5.8 %
[2021-08-17] MEDS ORDERED: Insulin LISPRO 300 UNITS/3 ML VIAL SUBQ SCH (21:00)
[2021-08-17] MEDS ORDERED: Melatonin 3 MG TABLET PO PRN (22:28)
[2021-08-18 04:37] LABS: Hematocrit 28.4 % (37.5-50.1); Hemoglobin 8.8 g/dL (12.9-16.9); Mean Corpuscular Hemoglobin 30.9 pg (28.0-33.3); Mean Corpuscular Volume 99.6 fL (83.0-100.0); Mean Platelet Volume 8.5 fL (9.4-12.4); Platelet Count 415 K/mcL (140-400); Red Blood Count 2.85 M/mcL (4.19-5.50); White Blood Count 7.8 K/mcL (4.3-11.1)
[2021-08-18 04:51] LABS: BUN/Creatinine Ratio 17 (6-26); Blood Urea Nitrogen 16 mg/dL (8-23); Calcium 8.7 mg/dL (8.6-10.3); Carbon Dioxide 30 mEq/L (23-29); Chloride 99 mEq/L (98-107); Glucose 154 mg/dL (70-105); Osmolality,Calculated 288 (280-300); Potassium 4.2 mEq/L (3.5-5.1); Sodium 137 mEq/L (136-145); eGFR For African Americans > 60 (> 60); eGFR For Non-African Americans > 60 (> 60)
[2021-08-18] MEDS ORDERED: Ringers Solution, Lactated 1,000 ML ONE (08:09)
[2021-08-18] MEDS: Insulin LISPRO 300 UNITS/3 ML VIAL SUBQ SCH ×3 (08:13→16:39)
[2021-08-18] MEDS: Furosemide 20 MG TABLET PO SCH (08:14)
[2021-08-18] MEDS ORDERED: Ringers Solution, Lactated 1,000 ML IVC SCH (08:15)
[2021-08-18] MEDS ORDERED: METHYLENE BLUE IR SCH ×2 (10:00→10:15)
[2021-08-18] MEDS ORDERED: SODIUM CHLORIDE IRRIGATION IR SCH ×2 (10:00→10:15)
[2021-08-18] MEDS ORDERED: Povidone-Iodine 45 ML, Sodium Chloride IRRigation 1,000 ML IR ONE ×2 (10:00→12:00)
[2021-08-18] MEDS ORDERED: Lidocaine HCL 4 ML Topical Solution (Laryng-O-Jet Kit Sterile Pak) TP ONE ×2 (10:06→11:37)
[2021-08-18] MEDS ORDERED: Ethanol\\Acetic Acid\\Na Ace\\Ben 1,000 ML IRRIG.SOLN IR ONE (10:48)
[2021-08-18] MEDS ORDERED: Ondansetron 4 MG/2 ML VIAL IVP PRN ×3 (11:03→19:10)
[2021-08-18] MEDS ORDERED: *HR* HYDROmorphone PF 0.5 MG/0.5 ML SYRINGE IVP PRN (11:03)
[2021-08-18] MEDS ORDERED: *HR* OxyCODONE Immed Rel 5 MG TABLET PO PRN (11:03)
[2021-08-18] MEDS ORDERED: Promethazine 6.25 MG in Water for inj. (sterile) 20 ML IVPB PRN (11:03)
[2021-08-18] MEDS ORDERED: *HR* FentaNYL (PF) 100 MCG/2 ML VIAL ONE ×2 (11:06→13:08)
[2021-08-18] MEDS ORDERED: ROPIVACAINE/PF/NS 0.25% 1 EACH SYRINGE INTRAART ONE (11:07)
[2021-08-18] MEDS ORDERED: Ropivacaine/PF 0.5% 30 ML VIAL ONE (11:07)
[2021-08-18] MEDS ORDERED: CeFAZolin Syr 2,000MG/20 ML 2,000 MG/20 ML SYRINGE IVPB ONE (11:19)
[2021-08-18] MEDS ORDERED: Gentamicin 480 MG in 0.9 % Sodium Chloride 100 ML IVPB ONE (11:22)
[2021-08-18] MEDS ORDERED: Vancomycin 1,000 MG VIAL ONE ×2 (11:23→11:55)
[2021-08-18] MEDS ORDERED: Ondansetron 4 MG/2 ML VIAL ONE (11:37)
[2021-08-18] MEDS ORDERED: Lidocaine -MPF 2% 5 ML VIAL ONE (11:37)
[2021-08-18] MEDS ORDERED: *HR* Propofol 200 MG/20 ML VIAL IVP ONE (11:37)
[2021-08-18] MEDS ORDERED: *HR* Rocuronium Bromide 50 MG/5 ML VIAL ONE (11:37)
[2021-08-18] MEDS ORDERED: TOTAL JOINT MIXTURE (100ML) INTRAART ONE (12:00)
[2021-08-18] MEDS ORDERED: HYDROGEN PEROXIDE ONE (12:14)
[2021-08-18] MEDS ORDERED: Heparin 1,000 UNITS/500 mL 500 ML ONE (12:18)
[2021-08-18] MEDS ORDERED: EPHEDrine 50 MG/ML VIAL ONE ×2 (12:50→15:16)
[2021-08-18] MEDS ORDERED: *HR* Phenylephrine 10 MG/ML VIAL ONE (13:24)
[2021-08-18 15:04] LABS: ABG Base Excess 2 mEq/L (-2 to 3); ABG Chloride 102 mEq/L (98-107); ABG Glucose 167 mg/dL (60-95); ABG HCO3 27 mEq/L (21-27); ABG Ionized Calcium 1.15 mmol/L (1.15-1.35); ABG Oxygen Saturation 100 % (95-98); ABG PCO2 39 mmHg (35-45); ABG PH 7.44 pH Units (7.32-7.45); ABG PO2 249 mmHg (85-104); ABG TCO2 28 mEq/L (20-26)
[2021-08-18] MEDS ORDERED: Albumin Human 5% 12.5 GM/250 ML IV.SOLN ONE ×2 (15:11→16:49)
[2021-08-18] MEDS ORDERED: *HR* Norepinephrine 4 MG/4 ML VIAL IVC ONE (15:32)
[2021-08-18] MEDS ORDERED: 0.9 % Sodium Chloride 250 ML ONE ×2 (15:33→21:51)
[2021-08-18 15:45] LABS: ABG Base Excess 1 mEq/L (-2 to 3); ABG Chloride 101 mEq/L (98-107); ABG Glucose 208 mg/dL (60-95); ABG HCO3 26 mEq/L (21-27); ABG Ionized Calcium 1.15 mmol/L (1.15-1.35); ABG Oxygen Saturation 100 % (95-98); ABG PCO2 42 mmHg (35-45); ABG PO2 276 mmHg (85-104); ABG TCO2 27 mEq/L (20-26)
[2021-08-18] MEDS ORDERED: Sugammadex Sodium 200 MG/2 ML VIAL IV ONE (16:20)
[2021-08-18] MEDS ORDERED: Albumin Human 5% 12.5 GM/250 ML IV.SOLN IVPB PRN (16:54)
[2021-08-18] MEDS ORDERED: *HR* HYDROmorphone (PF) 1 MG/ML SYRINGE IVP ONE (16:59)
[2021-08-18] MEDS ORDERED: Acetaminophen IV 1,000 MG/100 ML BAG IVPB ONE (17:30)
[2021-08-18 17:38] LABS: Basophils % 0.3 %; Eosinophils % 0.1 %; Hematocrit 19.6 % (37.5-50.1); Immature Granulocytes % 1.2 % (0-4); Lymphocytes # 1.6 K/mcL (0.6-4.6); Mean Corpuscular HGB Conc 31.1 g/dL (31.6-35.5); Mean Corpuscular Volume 99.5 fL (83.0-100.0); Mean Platelet Volume 8.9 fL (9.4-12.4); Monocytes # 0.2 K/mcL (0.0-1.3); Monocytes % 1.5 %; Neutrophils # 12.5 K/mcL (1.6-8.9); Platelet Count 485 K/mcL (140-400); Red Blood Count 1.97 M/mcL (4.19-5.50); Red Cell Distribution Width 14.2 % (11.5-14.5); Segmented Neutrophils % 85.9 %
[2021-08-18 17:40] LABS: Hemoglobin 6.1 g/dL (12.9-16.9); White Blood Count 14.6 K/mcL (4.3-11.1)
[2021-08-18] MEDS ORDERED: 0.9 % Sodium Chloride 500 ML ONE (17:49)
[2021-08-18] MEDS ORDERED: Naloxone 0.4 MG/ML INJ IVP PRN (19:10)
[2021-08-18] MEDS ORDERED: *HR* Dextrose 50 % in Water (Syg) 50 ML SYRINGE IVP PRN (19:10)
[2021-08-18] MEDS ORDERED: Sennosides 8.6 MG TABLET PO PRN (19:10)
[2021-08-18] MEDS ORDERED: Dextrose Gel 15 GM/37.5 ML TUBE PO PRN ×2 (19:10)
[2021-08-18] MEDS ORDERED: MOM Conc 10 ML UD.LIQ PO PRN (19:10)
[2021-08-18] MEDS ORDERED: DAPTOmycin 750 MG in 0.9 % Sodium Chloride 100 ML IVPB SCH (20:00)
[2021-08-18] MEDS: *HR* OxyCODONE Immed Rel 5 MG TABLET PO PRN (20:20)
[2021-08-18] MEDS ORDERED: *HR* Midazolam HCl 5 MG/5 ML VIAL IVP ONE (20:21)
[2021-08-18] MEDS ORDERED: Insulin LISPRO 300 UNITS/3 ML VIAL SUBQ SCH (21:00)
[2021-08-18 21:19] LABS: Hematocrit 21.3 % (37.5-50.1); Hemoglobin 6.8 g/dL (12.9-16.9)
[2021-08-19] MEDS: *HR* HYDROcodone/Acet 5/325 mg TABLET PO PRN ×3 (00:34→23:34)
[2021-08-19] MEDS: CeFAZolin 2 GM/120 ML BAG IVPB SCH ×2 (04:50→08:26)
[2021-08-19 05:13] LABS: Hematocrit 22.3 % (37.5-50.1); Hemoglobin 7.6 g/dL (12.9-16.9); Mean Corpuscular HGB Conc 34.1 g/dL (31.6-35.5); Mean Corpuscular Hemoglobin 31.3 pg (28.0-33.3); Mean Platelet Volume 9.1 fL (9.4-12.4); Platelet Count 403 K/mcL (140-400); Red Blood Count 2.43 M/mcL (4.19-5.50); Red Cell Distribution Width 15.4 % (11.5-14.5); White Blood Count 19.7 K/mcL (4.3-11.1)
[2021-08-19 05:15] LABS: Mean Corpuscular Volume 91.8 fL (83.0-100.0)
[2021-08-19 05:31] LABS: Calcium 7.7 mg/dL (8.6-10.3); Potassium 5.1 mEq/L (3.5-5.1)
[2021-08-19] MEDS ORDERED: Albumin 25% 12.5gm/50mL 12.5 GM/50 ML IV.SOLN IVPB ONE (05:31)
[2021-08-19] MEDS: Norepinephrine 4 MG/254 ML IV.SOLN IVC SCH ×3 (06:16→17:35)
[2021-08-19] MEDS: Insulin LISPRO 300 UNITS/3 ML VIAL SUBQ SCH ×4 (08:24→20:22)
[2021-08-19] MEDS ORDERED: cefTRIAXone 2,000 MG in 0.9 % Sodium Chloride 20 ML IVP SCH ×2 (09:00→11:00)
[2021-08-19] MEDS ORDERED: Furosemide 20 MG TABLET PO SCH (09:00)
[2021-08-19] MEDS: Albumin Human 5% 12.5 GM/250 ML IV.SOLN IVC SCH ×2 (10:35→15:03)
[2021-08-19] MEDS ORDERED: DAPTOmycin 600 MG in 0.9 % Sodium Chloride 100 ML IVPB SCH (11:00)
[2021-08-19] MEDS: *HR* OxyCODONE Immed Rel 5 MG TABLET PO PRN ×2 (11:32→18:25)
[2021-08-19 12:31] LABS: Hematocrit 21.9 % (37.5-50.1); Hemoglobin 7.1 g/dL (12.9-16.9)
[2021-08-19 12:48] LABS: Calcium 7.9 mg/dL (8.6-10.3); Potassium 5.4 mEq/L (3.5-5.1)
[2021-08-19] MEDS ORDERED: Chloraseptic Spray 177 ML BOTTLE MM PRN ×2 (13:23→18:58)
[2021-08-19 17:00] LABS: Hematocrit 18.9 % (37.5-50.1)
[2021-08-19 17:18] LABS: Potassium 5.1 mEq/L (3.5-5.1)
[2021-08-19 17:20] LABS: Hemoglobin 6.3 g/dL (12.9-16.9)
[2021-08-19] MEDS ORDERED: *HR* Heparin 5,000 UNIT/ML VIAL SQ SCH (18:00)
[2021-08-19] MEDS ORDERED: Furosemide 20 MG/2 ML VIAL IVP ONE (18:05)
[2021-08-19] MEDS ORDERED: 0.9 % Sodium Chloride 250 ML ONE (18:27)
[2021-08-19] MEDS ORDERED: Dextrose Gel 15 GM/37.5 ML TUBE PO PRN ×2 (18:58)
[2021-08-19] MEDS ORDERED: Naloxone 0.4 MG/ML INJ IVP PRN (18:58)
[2021-08-19] MEDS ORDERED: MOM Conc 10 ML UD.LIQ PO PRN (18:58)
[2021-08-19] MEDS ORDERED: *HR* Dextrose 50 % in Water (Syg) 50 ML SYRINGE IVP PRN (18:58)
[2021-08-19] MEDS ORDERED: Sennosides 8.6 MG TABLET PO PRN (18:58)
[2021-08-19] MEDS: Melatonin 3 MG TABLET PO PRN (23:35)
[2021-08-20 01:45] LABS: Basophils % 0.2 %; Eosinophils # 0.1 K/mcL (0.0-0.6); Eosinophils % 0.6 %; Hematocrit 20.9 % (37.5-50.1); Hemoglobin 6.8 g/dL (12.9-16.9); Immature Granulocytes % 0.8 % (0-4); Lymphocytes # 1.8 K/mcL (0.6-4.6); Lymphocytes % 12.4 %; Mean Corpuscular HGB Conc 32.5 g/dL (31.6-35.5); Mean Corpuscular Hemoglobin 30.2 pg (28.0-33.3); Mean Corpuscular Volume 92.9 fL (83.0-100.0); Mean Platelet Volume 9.2 fL (9.4-12.4); Monocytes # 1.7 K/mcL (0.0-1.3); Monocytes % 11.8 %; Neutrophils # 10.7 K/mcL (1.6-8.9); Nucleated Red Blood Cells 0.1 /100 WBC (0); Platelet Count 339 K/mcL (140-400); Red Blood Count 2.25 M/mcL (4.19-5.50); Red Cell Distribution Width 15.4 % (11.5-14.5); Segmented Neutrophils % 74.2 %; White Blood Count 14.5 K/mcL (4.3-11.1)
[2021-08-20 01:52] LABS: Albumin/Globulin Ratio 1.4 (1.1-2.2); Bilirubin,Total 0.5 mg/dL (0.3-1.0); Calcium 7.7 mg/dL (8.6-10.3); Globulin 2.2 g/dL (2.4-3.5); Potassium 4.5 mEq/L (3.5-5.1); Total Protein 5.2 g/dL (6.4-8.9)
[2021-08-20] MEDS: *HR* HYDROcodone/Acet 5/325 mg TABLET PO PRN ×3 (06:39→21:09)
[2021-08-20] MEDS: cefTRIAXone 2,000 MG in 0.9 % Sodium Chloride 20 ML IVP SCH (08:38)
[2021-08-20] MEDS: Insulin LISPRO 300 UNITS/3 ML VIAL SUBQ SCH ×4 (08:42→21:21)
[2021-08-20] MEDS ORDERED: Furosemide 20 MG TABLET PO SCH (09:00)
[2021-08-20] MEDS: DAPTOmycin 600 MG in 0.9 % Sodium Chloride 100 ML IVPB SCH (11:30)
[2021-08-20] MEDS ORDERED: *HR* HYDROmorphone (PF) 1 MG/ML SYRINGE IVP PRN (11:53)
[2021-08-20] MEDS: *HR* HYDROmorphone (PF) 1 MG/ML SYRINGE IVP PRN (12:30)
[2021-08-20 13:03] LABS: Hemoglobin 7.1 g/dL (12.9-16.9); Lymphocytes % 9.9 %; Mean Corpuscular HGB Conc 32.3 g/dL (31.6-35.5); Mean Corpuscular Hemoglobin 29.8 pg (28.0-33.3); Mean Corpuscular Volume 92.4 fL (83.0-100.0); Mean Platelet Volume 8.9 fL (9.4-12.4); Platelet Count 348 K/mcL (140-400); Red Blood Count 2.38 M/mcL (4.19-5.50); Red Cell Distribution Width 15.8 % (11.5-14.5); Segmented Neutrophils % 77.3 %; White Blood Count 15.8 K/mcL (4.3-11.1)
[2021-08-20 13:04] LABS: Basophils % 0.3 %; Eosinophils # 0.1 K/mcL (0.0-0.6); Eosinophils % 0.6 %; Lymphocytes # 1.6 K/mcL (0.6-4.6); Monocytes # 1.7 K/mcL (0.0-1.3); Monocytes % 10.9 %; Neutrophils # 12.2 K/mcL (1.6-8.9); Nucleated Red Blood Cells 0.2 /100 WBC (0)
[2021-08-20] MEDS: Melatonin 3 MG TABLET PO PRN (21:09)
[2021-08-21] MEDS: *HR* HYDROmorphone (PF) 1 MG/ML SYRINGE IVP PRN ×3 (00:19→22:25)
[2021-08-21 04:01] LABS: Basophils % 0.2 %; Eosinophils # 0.2 K/mcL (0.0-0.6); Eosinophils % 1.2 %; Hematocrit 19.7 % (37.5-50.1); Hemoglobin 6.6 g/dL (12.9-16.9); Immature Granulocytes % 0.7 % (0-4); Lymphocytes # 1.6 K/mcL (0.6-4.6); Lymphocytes % 11.8 %; Mean Corpuscular HGB Conc 33.5 g/dL (31.6-35.5); Mean Corpuscular Hemoglobin 31.4 pg (28.0-33.3); Mean Corpuscular Volume 93.8 fL (83.0-100.0); Mean Platelet Volume 9.1 fL (9.4-12.4); Monocytes # 1.8 K/mcL (0.0-1.3); Monocytes % 13.3 %; Neutrophils # 9.7 K/mcL (1.6-8.9); Nucleated Red Blood Cells 0.2 /100 WBC (0); Platelet Count 340 K/mcL (140-400); Red Cell Distribution Width 15.6 % (11.5-14.5); Segmented Neutrophils % 72.8 %; White Blood Count 13.3 K/mcL (4.3-11.1)
[2021-08-21 04:18] LABS: Potassium 4.3 mEq/L (3.5-5.1)
[2021-08-21] MEDS: Insulin LISPRO 300 UNITS/3 ML VIAL SUBQ SCH ×4 (08:38→19:59)
[2021-08-21] MEDS: cefTRIAXone 2,000 MG in 0.9 % Sodium Chloride 20 ML IVP SCH (08:40)
[2021-08-21] MEDS ORDERED: 0.9 % Sodium Chloride 250 ML ONE (09:05)
[2021-08-21] MEDS ORDERED: polyethylene glycoL 3350 17 GM POWD.PACK PO SCH (09:45)
[2021-08-21] MEDS: DAPTOmycin 600 MG in 0.9 % Sodium Chloride 100 ML IVPB SCH (10:54)
[2021-08-21 15:11] LABS: Hematocrit 24.1 % (37.5-50.1); Hemoglobin 7.7 g/dL (12.9-16.9)
[2021-08-21] MEDS: *HR* HYDROcodone/Acet 5/325 mg TABLET PO PRN (20:12)
[2021-08-21] MEDS: polyethylene glycoL 3350 17 GM POWD.PACK PO SCH (20:12)
[2021-08-21] MEDS: Melatonin 3 MG TABLET PO PRN (22:28)
[2021-08-22 03:53] LABS: Hematocrit 22.3 % (37.5-50.1); Hemoglobin 7.3 g/dL (12.9-16.9); Mean Corpuscular HGB Conc 32.7 g/dL (31.6-35.5); Mean Corpuscular Hemoglobin 30.9 pg (28.0-33.3); Mean Corpuscular Volume 94.5 fL (83.0-100.0); Platelet Count 323 K/mcL (140-400); Red Blood Count 2.36 M/mcL (4.19-5.50); Red Cell Distribution Width 15.3 % (11.5-14.5); White Blood Count 12.7 K/mcL (4.3-11.1)
[2021-08-22 04:12] LABS: BUN/Creatinine Ratio 21 (6-26); Blood Urea Nitrogen 24 mg/dL (8-23); Calcium 7.6 mg/dL (8.6-10.3); Carbon Dioxide 28 mEq/L (23-29); Chloride 99 mEq/L (98-107); Glucose 156 mg/dL (70-105); Osmolality,Calculated 283 (280-300); Potassium 4.3 mEq/L (3.5-5.1); Sodium 133 mEq/L (136-145); eGFR For African Americans > 60 (> 60); eGFR For Non-African Americans > 60 (> 60)
[2021-08-22] MEDS: *HR* HYDROcodone/Acet 5/325 mg TABLET PO PRN ×2 (06:04→17:25)
[2021-08-22] MEDS: cefTRIAXone 2,000 MG in 0.9 % Sodium Chloride 20 ML IVP SCH (08:07)
[2021-08-22] MEDS: Insulin LISPRO 300 UNITS/3 ML VIAL SUBQ SCH ×4 (08:10→19:33)
[2021-08-22] MEDS: polyethylene glycoL 3350 17 GM POWD.PACK PO SCH ×2 (08:12→20:25)
[2021-08-22] MEDS: DAPTOmycin 600 MG in 0.9 % Sodium Chloride 100 ML IVPB SCH (14:52)
[2021-08-22] MEDS: Ondansetron 4 MG/2 ML VIAL IVP PRN (22:17)
[2021-08-23] MEDS: *HR* HYDROcodone/Acet 5/325 mg TABLET PO PRN ×2 (04:36→23:05)
[2021-08-23 05:31] LABS: Basophils % 0.2 %; Eosinophils # 0.1 K/mcL (0.0-0.6); Eosinophils % 0.4 %; Hematocrit 23.9 % (37.5-50.1); Hemoglobin 7.6 g/dL (12.9-16.9); Immature Granulocytes % 0.6 % (0-4); Lymphocytes # 1.2 K/mcL (0.6-4.6); Lymphocytes % 8.8 %; Mean Corpuscular HGB Conc 31.8 g/dL (31.6-35.5); Mean Corpuscular Hemoglobin 30.9 pg (28.0-33.3); Mean Corpuscular Volume 97.2 fL (83.0-100.0); Mean Platelet Volume 9.1 fL (9.4-12.4); Monocytes % 7.2 %; Neutrophils # 11.5 K/mcL (1.6-8.9); Platelet Count 394 K/mcL (140-400); Red Blood Count 2.46 M/mcL (4.19-5.50); Red Cell Distribution Width 15.5 % (11.5-14.5); Segmented Neutrophils % 82.8 %; White Blood Count 13.9 K/mcL (4.3-11.1)
[2021-08-23 05:50] LABS: BUN/Creatinine Ratio 23 (6-26); Blood Urea Nitrogen 26 mg/dL (8-23); Calcium 8.1 mg/dL (8.6-10.3); Carbon Dioxide 30 mEq/L (23-29); Chloride 98 mEq/L (98-107); Glucose 211 mg/dL (70-105); Magnesium 1.7 mg/dL (1.6-2.6); Osmolality,Calculated 289 (280-300); Potassium 4.3 mEq/L (3.5-5.1); Sodium 134 mEq/L (136-145); eGFR For African Americans > 60 (> 60); eGFR For Non-African Americans > 60 (> 60)
[2021-08-23] MEDS: *HR* HYDROmorphone (PF) 1 MG/ML SYRINGE IVP PRN (05:56)
[2021-08-23] MEDS: Magnesium Oxide 400 MG TABLET PO SCH (09:04)
[2021-08-23] MEDS: Multivit/Ca/Min/Fe/FA 1 TAB TABLET PO SCH (09:04)
[2021-08-23] MEDS: Insulin LISPRO 300 UNITS/3 ML VIAL SUBQ SCH ×4 (09:05→21:58)
[2021-08-23] MEDS: cefTRIAXone 2,000 MG in 0.9 % Sodium Chloride 20 ML IVP SCH (09:06)
[2021-08-23] MEDS: polyethylene glycoL 3350 17 GM POWD.PACK PO SCH ×2 (09:06→22:03)
[2021-08-23] MEDS: DAPTOmycin 600 MG in 0.9 % Sodium Chloride 100 ML IVPB SCH (12:56)
[2021-08-23] MEDS: *HR* Heparin 5,000 UNIT/ML VIAL SQ SCH (18:52)
[2021-08-23] MEDS: Melatonin 3 MG TABLET PO PRN (23:05)
[2021-08-24 04:50] LABS: Basophils # 0.1 K/mcL (0.0-0.2); Basophils % 0.4 %; Eosinophils # 0.3 K/mcL (0.0-0.6); Eosinophils % 2.1 %; Hematocrit 22.9 % (37.5-50.1); Hemoglobin 7.4 g/dL (12.9-16.9); Immature Granulocytes % 0.6 % (0-4); Lymphocytes # 2.1 K/mcL (0.6-4.6); Lymphocytes % 14.9 %; Mean Corpuscular HGB Conc 32.3 g/dL (31.6-35.5); Mean Corpuscular Hemoglobin 31.6 pg (28.0-33.3); Mean Corpuscular Volume 97.9 fL (83.0-100.0); Monocytes # 1.5 K/mcL (0.0-1.3); Monocytes % 10.7 %; Platelet Count 397 K/mcL (140-400); Red Blood Count 2.34 M/mcL (4.19-5.50); Red Cell Distribution Width 16.1 % (11.5-14.5); Segmented Neutrophils % 71.3 %
[2021-08-24 05:14] LABS: BUN/Creatinine Ratio 20 (6-26); Blood Urea Nitrogen 25 mg/dL (8-23); Carbon Dioxide 30 mEq/L (23-29); Chloride 98 mEq/L (98-107); Glucose 164 mg/dL (70-105); Magnesium 1.9 mg/dL (1.6-2.6); Osmolality,Calculated 286 (280-300); Potassium 4.1 mEq/L (3.5-5.1); Sodium 134 mEq/L (136-145); eGFR For African Americans > 60 (> 60); eGFR For Non-African Americans 56 (> 60)
[2021-08-24] MEDS: *HR* Heparin 5,000 UNIT/ML VIAL SQ SCH ×2 (06:12→16:09)
[2021-08-24] MEDS: cefTRIAXone 2,000 MG in 0.9 % Sodium Chloride 20 ML IVP SCH (08:35)
[2021-08-24] MEDS: Insulin LISPRO 300 UNITS/3 ML VIAL SUBQ SCH ×4 (08:35→20:06)
[2021-08-24] MEDS: Magnesium Oxide 400 MG TABLET PO SCH (08:35)
[2021-08-24] MEDS: polyethylene glycoL 3350 17 GM POWD.PACK PO SCH ×2 (08:35→20:11)
[2021-08-24] MEDS: Multivit/Ca/Min/Fe/FA 1 TAB TABLET PO SCH (08:36)
[2021-08-24] MEDS: *HR* HYDROcodone/Acet 5/325 mg TABLET PO PRN ×2 (10:35→17:20)
[2021-08-24] MEDS: *HR* HYDROmorphone (PF) 1 MG/ML SYRINGE IVP PRN ×2 (13:29→22:40)
[2021-08-24] MEDS: DAPTOmycin 600 MG in 0.9 % Sodium Chloride 100 ML IVPB SCH (13:32)
[2021-08-24] MEDS: Melatonin 3 MG TABLET PO PRN (22:40)
[2021-08-25] MEDS: *HR* HYDROmorphone (PF) 1 MG/ML SYRINGE IVP PRN (03:47)
[2021-08-25] MEDS: Ondansetron 4 MG/2 ML VIAL IVP PRN (05:05)
[2021-08-25] MEDS: *HR* Heparin 5,000 UNIT/ML VIAL SQ SCH ×2 (05:05→17:56)
[2021-08-25 05:14] LABS: Basophils # 0.1 K/mcL (0.0-0.2); Basophils % 0.4 %; Eosinophils # 0.3 K/mcL (0.0-0.6); Hemoglobin 7.8 g/dL (12.9-16.9); Lymphocytes # 1.6 K/mcL (0.6-4.6); Lymphocytes % 14.1 %; Mean Corpuscular HGB Conc 31.2 g/dL (31.6-35.5); Mean Corpuscular Volume 99.2 fL (83.0-100.0); Mean Platelet Volume 8.6 fL (9.4-12.4); Monocytes # 1.6 K/mcL (0.0-1.3); Monocytes % 13.9 %; Neutrophils # 7.8 K/mcL (1.6-8.9); Platelet Count 435 K/mcL (140-400); Red Blood Count 2.52 M/mcL (4.19-5.50); Red Cell Distribution Width 15.8 % (11.5-14.5); Segmented Neutrophils % 67.6 %; White Blood Count 11.5 K/mcL (4.3-11.1)
[2021-08-25 05:32] LABS: BUN/Creatinine Ratio 19 (6-26); Blood Urea Nitrogen 23 mg/dL (8-23); Calcium 8.1 mg/dL (8.6-10.3); Carbon Dioxide 33 mEq/L (23-29); Chloride 98 mEq/L (98-107); Glucose 172 mg/dL (70-105); Magnesium 1.9 mg/dL (1.6-2.6); Osmolality,Calculated 290 (280-300); Potassium 4.2 mEq/L (3.5-5.1); Sodium 136 mEq/L (136-145); eGFR For African Americans > 60 (> 60); eGFR For Non-African Americans 56 (> 60)
[2021-08-25] MEDS: Multivit/Ca/Min/Fe/FA 1 TAB TABLET PO SCH (07:52)
[2021-08-25] MEDS: Magnesium Oxide 400 MG TABLET PO SCH (07:52)
[2021-08-25] MEDS: cefTRIAXone 2,000 MG in 0.9 % Sodium Chloride 20 ML IVP SCH (07:53)
[2021-08-25] MEDS: Insulin LISPRO 300 UNITS/3 ML VIAL SUBQ SCH ×4 (07:55→21:41)
[2021-08-25] MEDS: DAPTOmycin 600 MG in 0.9 % Sodium Chloride 100 ML IVPB SCH (11:29)
[2021-08-25] MEDS: polyethylene glycoL 3350 17 GM POWD.PACK PO SCH ×2 (11:31→21:41)
[2021-08-25 16:42] LABS: Influenza A PCR Negative (Negative); Influenza B PCR Negative (Negative); Resp. Syncytial Virus PCR Negative (Negative)
[2021-08-25 16:43] LABS: SARS-CoV-2 by PCR (In House) Negative (Negative)
[2021-08-25 19:20] VITALS: BP 136/67; PULSE 66; TEMP 99; O2SAT 90
[2021-08-25] MEDS ORDERED: Lactobacillus 1 EACH CAP.SPRINK PO SCH (21:00)
== END 2021-08-25 22:04 | DRG 466 ==
LOC: 4WAOSI → SUATTDRO 07:53 → 2NNU 08-18 18:46 → 4WAOSI 08-21 12:23
PROVIDERS: ADMIT Internal Medicine; ATTEND Pharmacist

== ENCOUNTER 2022-04-05 15:19 | Observation (INO) ==
[2022-04-05] MEDS ORDERED: Iopamidol - 370 500 ML MLS IVP ONE (15:40)
[2022-04-05 15:41] LABS: Basophils % 0.3 %; Eosinophils # 0.3 K/mcL (0.0-0.6); Eosinophils % 2.6 %; Hematocrit 30.8 % (37.5-50.1); Hemoglobin 10.1 g/dL (12.9-16.9); Immature Granulocytes % 0.5 % (0-4); Lymphocytes # 1.5 K/mcL (0.6-4.6); Lymphocytes % 13.1 %; Mean Corpuscular HGB Conc 32.8 g/dL (31.6-35.5); Mean Corpuscular Hemoglobin 31.3 pg (28.0-33.3); Mean Corpuscular Volume 95.4 fL (83.0-100.0); Mean Platelet Volume 8.9 fL (9.4-12.4); Monocytes # 0.8 K/mcL (0.0-1.3); Monocytes % 6.7 %; Neutrophils # 8.6 K/mcL (1.6-8.9); Platelet Count 276 K/mcL (140-400); Red Blood Count 3.23 M/mcL (4.19-5.50); Segmented Neutrophils % 76.8 %; White Blood Count 11.2 K/mcL (4.3-11.1)
[2022-04-05 16:03] LABS: Alanine Aminotransferase 10 Units/L (7-52); Albumin 4.2 g/dL (3.5-5.7); Albumin/Globulin Ratio 1.2 (1.1-2.2); Alkaline Phosphatase 54 Units/L (34-104); Aspartate Amino Transferase 13 Units/L (13-39); BUN/Creatinine Ratio 22 (6-26); Bilirubin,Direct 0.1 mg/dL (0.0-0.2); Bilirubin,Indirect 0.3 mg/dL (0.0-1.0); Bilirubin,Total 0.4 mg/dL (0.3-1.0); Blood Urea Nitrogen 46 mg/dL (8-23); Carbon Dioxide 26 mEq/L (23-29); Chloride 102 mEq/L (98-107); Globulin 3.4 g/dL (2.4-3.5); Glucose 150 mg/dL (70-105); Lipase 37 Units/L (11-82); Osmolality,Calculated 293 (280-300); Potassium 5.8 mEq/L (3.5-5.1); Sodium 134 mEq/L (136-145); Total Protein 7.6 g/dL (6.4-8.9); Troponin I < 0.03 ng/mL (< 0.04)
[2022-04-05] MEDS ORDERED: Calcium Gluconate 1gm/50mL 1 GM/50 ML BAG IVPB ONE (16:13)
[2022-04-05] MEDS ORDERED: Furosemide 20 MG/2 ML VIAL IVP ONE (16:13)
[2022-04-05] MEDS ORDERED: Insulin Human Regular 5 UNIT in 0.9 % Sodium Chloride 10 ML IV ONE (16:14)
[2022-04-05] MEDS ORDERED: *HR* Dextrose 50 % in Water (Syg) 50 ML SYRINGE IVP ONE ×2 (16:15→16:20)
[2022-04-05 17:12] LABS: INR 1.4; Prothrombin Time 15.7 Seconds (9.4-12.1)
[2022-04-05 17:43] LABS: VBG HCO3 27 mEq/L (21-27); VBG PCO2 52 mmHg (41-51); VBG PH 7.33 pH Units (7.32-7.42); VBG PO2 143 mmHg (25-50)
[2022-04-05 18:11] LABS: Bilirubin,Urine Negative (Negative); Blood,Urine Negative (Negative); Clarity,Urine Clear (Clear); Color,Urine Light-Yellow (Yellow); Glucose,Urine (UA) 200 mg/dL (Normal); Ketones,Urine Negative (Negative); Leukocyte Esterase,Urine Negative (Negative); Nitrite,Urine Negative (Negative); PH,Urine 6.5 pH Units (5.0-8.0); Protein,Urine 30 mg/dL (Neg-Trace); RBC,Urine 0-3 per hpf (0-3); Specific Gravity,Urine 1.013 (1.010-1.025); Squamous Epithelial Cell,Urine Few per hpf (None-Few); Urobilinogen,Urine Normal (Normal); WBC,Urine 0-3 per hpf (0-3)
[2022-04-05 18:37] LABS: Influenza A PCR Negative (Negative); Influenza B PCR Negative (Negative); Resp. Syncytial Virus PCR Negative (Negative); SARS-CoV-2 by PCR (In House) Negative (Negative)
[2022-04-05 19:17] LABS: Thyroid Stimulating Hormone 4.567 mcIU/mL (0.340-5.600)
[2022-04-05] MEDS ORDERED: 0.9 % Sodium Chloride 1,000 ML IVC ONE (20:19)
[2022-04-05] MEDS ORDERED: Naloxone 0.4 MG/ML INJ IVP PRN (21:58)
[2022-04-05] MEDS ORDERED: Acetaminophen 325 MG TABLET PO PRN (21:58)
[2022-04-05] MEDS ORDERED: Ondansetron 4 MG/2 ML VIAL IVP PRN (21:58)
[2022-04-06] MEDS: 0.9 % Sodium Chloride 1,000 ML IVC SCH ×2 (00:27→18:08)
[2022-04-06] MEDS ORDERED: Sennosides/Docusate Sodium TABLET PO PRN (01:45)
[2022-04-06 03:16] LABS: Basophils % 0.3 %; Eosinophils # 0.1 K/mcL (0.0-0.6); Eosinophils % 0.8 %; Hemoglobin 9.6 g/dL (12.9-16.9); Immature Granulocytes % 0.2 % (0-4); Lymphocytes # 1.7 K/mcL (0.6-4.6); Lymphocytes % 16.3 %; Mean Corpuscular HGB Conc 33.1 g/dL (31.6-35.5); Mean Corpuscular Volume 93.5 fL (83.0-100.0); Monocytes # 0.8 K/mcL (0.0-1.3); Monocytes % 7.9 %; Neutrophils # 7.7 K/mcL (1.6-8.9); Platelet Count 288 K/mcL (140-400); Red Cell Distribution Width 13.9 % (11.5-14.5); Segmented Neutrophils % 74.5 %; White Blood Count 10.3 K/mcL (4.3-11.1)
[2022-04-06 03:32] LABS: Calcium 9.3 mg/dL (8.6-10.3); Phosphorous 4.9 mg/dL (2.7-4.5); Potassium 4.6 mEq/L (3.5-5.1)
[2022-04-06] MEDS ORDERED: D5% in Water 1,000 ML IVC PRN (07:34)
[2022-04-06] MEDS ORDERED: *HR* Dextrose 50 % in Water (Syg) 50 ML SYRINGE IVP PRN (07:34)
[2022-04-06] MEDS ORDERED: Dextrose Gel 15 GM/37.5 ML TUBE PO PRN ×2 (07:34)
[2022-04-06] MEDS: *HR* Rivaroxaban 15 MG TABLET PO SCH (08:33)
[2022-04-06] MEDS: Magnesium Oxide 400 MG TABLET PO SCH (08:33)
[2022-04-06] MEDS: Insulin LISPRO 300 UNITS/3 ML VIAL SUBQ SCH ×2 (11:21→17:56)
[2022-04-06] MEDS ORDERED: Insulin LISPRO 300 UNITS/3 ML VIAL SUBQ SCH (21:00)
[2022-04-07 02:57] LABS: Basophils # 0.1 K/mcL (0.0-0.2); Basophils % 0.6 %; Eosinophils # 0.3 K/mcL (0.0-0.6); Eosinophils % 2.9 %; Hematocrit 29.1 % (37.5-50.1); Hemoglobin 9.5 g/dL (12.9-16.9); Immature Granulocytes % 0.2 % (0-4); Lymphocytes # 2.1 K/mcL (0.6-4.6); Lymphocytes % 23.3 %; Mean Corpuscular HGB Conc 32.6 g/dL (31.6-35.5); Mean Corpuscular Hemoglobin 31.1 pg (28.0-33.3); Mean Corpuscular Volume 95.4 fL (83.0-100.0); Mean Platelet Volume 9.3 fL (9.4-12.4); Monocytes # 1.1 K/mcL (0.0-1.3); Monocytes % 12.2 %; Neutrophils # 5.5 K/mcL (1.6-8.9); Platelet Count 291 K/mcL (140-400); Red Blood Count 3.05 M/mcL (4.19-5.50); Segmented Neutrophils % 60.8 %
[2022-04-07 03:11] VITALS: TEMP 97.9
[2022-04-07 03:16] LABS: Calcium 8.9 mg/dL (8.6-10.3); Phosphorous 4.3 mg/dL (2.7-4.5); Potassium 4.6 mEq/L (3.5-5.1)
[2022-04-07 07:44] VITALS: BP 142/63; PULSE 60; O2SAT 94
[2022-04-07] MEDS: Insulin LISPRO 300 UNITS/3 ML VIAL SUBQ SCH (08:35)
[2022-04-07] MEDS: Magnesium Oxide 400 MG TABLET PO SCH (09:47)
[2022-04-07] MEDS: *HR* Rivaroxaban 15 MG TABLET PO SCH (09:47)
[2022-04-07] MEDS ORDERED: Metoprolol XL (24 HR) Succ 25 MG TAB.ER.24H PO SCH (10:00)
== END 2022-04-07 11:41 | disposition home or self-care (01) ==
LOC: 3ANU 15:19 → EMEROOARM 15:19 → SUATTDRO 21:56 → 3ANU 22:25
PROVIDERS: ADMIT Internal Medicine; ATTEND Family Medicine